=== PATIENT | male | born 1940 | race Caucasian/White ===

== ENCOUNTER 2020-06-02 11:09 | Emergency (ER) | payer OTHER, MEDICARE, SELFPAY ==
[2020-06-02 11:21] VITALS: BP 131/75; PULSE 78; RESP 16; TEMP 37; O2SAT 90; BMI 18.8
--- NOTE | 2020-06-02 11:30 | XR_ITS ---
WS: [id number] EXAM: AP CHEST: PORTABLE UPRIGHT DATE OF EXAM: 06/02/2020, 1135 hours COMPARISON: Chest x-ray from 02/17/2019 HISTORY: Patient is 79 years old with cough and dyspnea for the last 4 days. FINDINGS: The cardiac silhouette is normal in size. The mediastinal contours are similar.. The pulmonary v ascularity is normal. Fairly extensive underlying emphysematous lung changes seen. Loss of lung pare nchyma markings are again seen superiorly, right greater than left. Increased interstitial markings m id and lower lung zones again seen suggesting some degree of vascular crowding as well as most likely some degree of fibrosis. Right lung is clear. There is persistent infiltrate in the left mid and med ial lower chest. Actually less apparent than on the 2019 examination. Going back to a 2017 CT examina tion minimal atelectasis in the left lung base was seen at that time. This raises the possibility of a recurrent pneumonitis in the left lung versus all progressive chronic change. There is no effusion or pneumothorax. No acute bony abnormality is seen. XR/XR chest 1V portable [id number] IMPRESSION: COPD changes with hyperinflation. Infiltrate in the left mid and lower chest. Q uestion chronic change versus recurrent pneumonitis.
--- NOTE | 2020-06-02 11:31 | ECG_ITS ---
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 Measurements Intervals [place] Rate: 74 P: 1 VA: 157 QRS: -58 QRSD: 93 T: 73 QT: 436 QTc: 486 Interpretive Statements SINUS RHYTHM LEFT ANTERIOR FASCICULAR BLOCK [QRS AXIS <= -45, QR IN I, RS IN II] NONSPECIFIC T-WAVE ABNORMALITY PROLONGED QT INTERVAL Compared to ECG 03/06/2017 13:18:32 Left anterior fascicular block now present T-wave abnormality now present Prolonged QT interval now present Left-axis deviation no longer present Electronically Signed On 06-02-2020 19:40:55 CDT by Raghu Vazquez M.D. [id number]
--- NOTE | 2020-06-02 11:40 | W.ED.AMS ---
HPI - Altered Mental Status General: Chief Complaint: Altered Mental Status Stated Complaint: low o2/dizzy/recent fever/horney stings/ams Time Seen by Provider: 06/02/20 11:20 History of Present Illness: HPI narrative: This patient is an 79-year-old male who comes in today with complaints that he might have pneumonia as well as reported confusion at home. He is the only 1 in the room at the time I take the history but he tells me that his daughters think he has pneumonia. He said he had a cough for about a week. He feels short of breath. He does not think he is had a fever. He has not had chest pain, nausea, vomiting, diarrhea. He got confused last night and thought it was 7:30 in the morning when it was actually 7:30 at night. He does have some oxygen at home which he was prescribed about a year ago after he had some rib fractures. He does not normally use it and has not used it in this past week. He also has an inhaler at home that he uses sometimes when it is hot . He has not used that this week either. He said he has not gone out much and does not think he is been around anyone who is been sick. [facility] He said he was in the ICU once about 4 years ago in [place] for pneumonia. I spoke with the patient's daughter. She said it was this morning that she had talked to him on the phone and he thought it was nighttime. He was very confused with her. She and her daughter who is an ER nurse, and live on the same property as him, went to his house to check on him. They checked his pulse ox and it was in the 70s. They put him on some oxygen that is at the home because of a grandchild who uses it. That did seem to help him somewhat. She says that he does have a history of COPD and recurrent pneumonias. She said he has had a severe cough for the past week. She did not have any other concerns or history to add to that. complaint: confusion and other (Cough and shortness of breath) Onset (ago): week(s) (1) Severity: moderate Consistency of symptoms: Unknown Review of Systems General: Reports: 10 or more systems reviewed and unremarkable except in HPI and below Const: Denies: fever(s), chills, fatigue or malaise Eyes: Denies: change in vision ENMT: Denies: odynophagia Card: Denies: chest pain or swelling of feet/ankles Resp: Reports: dyspnea and productive cough; Denies: non-productive cough GI: Denies: abdominal pain, nausea or vomiting : Denies: flank pain Musc: Denies: neck pain or back pain Skin/Breast: Denies: rash Neuro: Reports: confusion; Denies: headache(s), numbness in extremities or weakness in extremities Reed/Lymph: Denies: easy bruising or easy bleeding PFSH ED PFSH: Social History (Updated 06/02/20 @ 11:31 by Jessica Emerson RN) Smoking and tobacco status: current every day smoker cigarettes Alcohol intake: current Alcohol intake frequency: 0-2 Drinks per Day Physical Exam Const: COMMON NORMALS: no acute distress, patient oriented x3, no limitations and alert GENERAL APPEARANCE: cooperative and comfortable ORIENTATION/CONSCIOUSNESS: Yes oriented to person, Yes oriented to place and Yes oriented to time (May be still a little bit confused) HENMT: HEAD & SCALP: normal to inspection FACE & SINUS: normal facial exam Eye: GENERAL EYE: appearance normal, both eyes and all related structures Neck/C-Spine: COMMON NORMALS: supple, no meningeal signs and no JVD Chest: COMMONS NORMALS: normal inspection of the chest Resp: EFFORT & INSPECTION: Yes symmetric chest movement AUSCULTATION: diminished lung sounds (Marked, diffuse) Cardio: COMMON NORMALS: no JVD, regular rate, regular rhythm and No murmurs present (Cardio) RATE: regular rate RHYTHM: regular rhythm GI: COMMON NORMALS: Normal to inspection, nondistended, normoactive bowel sounds present, Soft to palpation and non-tender INSPECTION: Yes normal to inspection AUSCULTATION: Yes normoactive bowel sounds PALPATION: Yes Soft to palpation Back/Pelvis: COMMON NORMALS: thoracic and lumbar spine normal to inspection Extremity: COMMON NORMALS: normal to inspection Neuro: COMMON NORMALS: patient oriented x3, moves all extremities, no focal motor deficits and no sensory deficits noted SENSORIUM/ORIENTATION: Yes alert, Yes oriented to person, Yes oriented to place and Yes oriented to time (May be still a little bit confused) MENINGEAL SIGNS: Yes no meningeal signs Psych: COMMON NORMALS: mental status grossly normal, cooperative and normal affect Skin: COMMON NORMALS: no rashes or lesions noted and turgor normal GENERAL SKIN EXAM: no rashes or lesions noted and turgor normal Course ED course: Patient's room air sat remains 90 to 89%. His chest x-ray suggests left-sided pneumonia. He continues to have decreased lung sounds. I spoke to his daughter and told her that I would like him to be admitted. She warned me that he might not want to stay. When I spoke to him he did in fact refused to stay in the hospital. He assures me that he has oxygen right by his bed at home. He said that he has a nebulizer. He will get an antibiotic filled. He expressed understanding of my concern that he could worsen at home we specifically discussed that if he were to get hypoxic and confused again he would know that he needed to put his oxygen on. He assures me that his family will keep a close eye on him and I do believe they will after having spoken to his daughter. I still prefer that he would come into the hospital. He is getting Rocephin and Zithromax and a breathing treatment at this time. He plans to sign out AMA after that. Reevaluation(s): Reevaluation #1: Spoke with the patient's daughter again. She understands that he is going to be signing out AMA. She will get his prescription filled and keep a close eye on him at home. She agrees to bring him back if he is getting worse. Vital Signs: Vital signs: Vital Signs Temperature 98.6 F 06/02/20 11:21 Pulse Rate 87 06/02/20 13:51 Respiratory Rate 20 H 06/02/20 13:51 Blood Pressure 112/71 06/02/20 15:07 Pulse Oximetry 90 06/02/20 15:07 MDM - Altered Mental Status Lab Data: Labs: Lab Results 06/02/20 06/02/20 06/02/20 Range/Units 11:55 11:55 11:55 WBC 10.4 H (4.0-10.0) 10^3/ uL RBC 5.26 (4.1-5.3) 10^6/u L Hgb 18.4 H (11.7-16.6) g/dL Hct 55.1 H (42.0-52.0) % MCV 104.8 H (80-94) fL MCH 35.0 H (28.0-34.0) pg MCHC 33.4 (30.0-36.0) g/dL RDW 15.1 (12.1-15.1) % Plt Count 162 (130-400) 10^3/c mm MPV 10.0 (7.4-10.4) fL Neut % (Auto) 85.0 % Lymph % (Auto) 8.1 % Stafford % (Auto) 5.8 % Eos % (Auto) 0.2 % Baso % (Auto) 0.3 % Neut # (Auto) 8.87 H (1.8-7.7) 10^3/u L Lymph # (Auto) 0.9 (0.8-4.8) 10^3/u L Stafford # (Auto) 0.6 (0.2-0.9) 10^3/u L Eos # (Auto) 0.0 (0.0-0.8) 10^3/u L Baso # (Auto) 0.0 (0.0-0.1) 10^3/u L Nucleated RBC % (a uto) 0 % Nucleated RBCs # 0.0 /100WBC PT 12.60 (12.1-14.9) SECO NDS INR 0.92 (0.8-1.2) Fibrinogen 438 (174-498) mg/dL D-Dimer 0.44 (0-0.59) ug/mIFE U Sodium 137 (136-145) mmol/L Potassium 4.6 (3.5-5.1) mmol/L Chloride 99 (98-107) mmol/L Carbon Dioxide 25 (22-29) mmol/L Anion Gap 17.6 (5-19) BUN 10 (8-23) mg/dL Creatinine 0.8 (0.7-1.2) mg/dL GFR Calculation Not Reportable Glucose 104 (65-115) mg/dL Calculated Osmolal ity 283 L (285-295) mOsm/k g Lactic Acid (0.5-2.2) mmol/L Calcium 8.9 (8.5-10.5) mg/dL Ferritin 236 (30-400) ng/mL Total Bilirubin 0.7 (0.15-1.2) mg/dL AST 22 (0-40) U/L ALT 18 (0-41) U/L Alkaline Phosphata se 106 (40-130) IU/L Troponin T Baselin e (0-15) ng/L Troponin T 120 Min [place] (0-15) ng/L Delta Troponin T (0-10) ABS# C-Reactive Protein 41.1 H (0.0-4.9) mg/L NT-Pro-B Natriuret Pep 184 (0-450) pg/mL Total Protein 6.9 (6.6-8.7) g/dL Albumin 4.6 (3.5-5.2) g/dL Globulin 2.3 (1.3-4.6) g/dL Procalcitonin 0.10 (0-0.5) ng/mL Influenza Type A A g (Negative) Influenza Type B A g (Negative) SARS-CoV-2 Ag (Rap id) (Negative) 06/02/20 06/02/20 06/02/20 Range/Units 11:55 11:55 12:06 WBC (4.0-10.0) 10^3/ uL RBC (4.1-5.3) 10^6/u L Hgb (11.7-16.6) g/dL Hct (42.0-52.0) % MCV (80-94) fL MCH (28.0-34.0) pg MCHC (30.0-36.0) g/dL RDW (12.1-15.1) % Plt Count (130-400) 10^3/c mm MPV (7.4-10.4) fL Neut % (Auto) % Lymph % (Auto) % Stafford % (Auto) % Eos % (Auto) % Baso % (Auto) % Neut # (Auto) (1.8-7.7) 10^3/u L Lymph # (Auto) (0.8-4.8) 10^3/u L Stafford # (Auto) (0.2-0.9) 10^3/u L Eos # (Auto) (0.0-0.8) 10^3/u L Baso # (Auto) (0.0-0.1) 10^3/u L Nucleated RBC % (a uto) % Nucleated RBCs # /100WBC PT (12.1-14.9) SECO NDS INR (0.8-1.2) Fibrinogen (174-498) mg/dL D-Dimer (0-0.59) ug/mIFE U Sodium (136-145) mmol/L Potassium (3.5-5.1) mmol/L Chloride (98-107) mmol/L Carbon Dioxide (22-29) mmol/L Anion Gap (5-19) BUN (8-23) mg/dL Creatinine (0.7-1.2) mg/dL GFR Calculation Glucose (65-115) mg/dL Calculated Osmolal ity (285-295) mOsm/k g Lactic Acid 1.2 (0.5-2.2) mmol/L Calcium (8.5-10.5) mg/dL Ferritin (30-400) ng/mL Total Bilirubin (0.15-1.2) mg/dL AST (0-40) U/L ALT (0-41) U/L Alkaline Phosphata se (40-130) IU/L Troponin T Baselin e 13 (0-15) ng/L Troponin T 120 Min [place] (0-15) ng/L Delta Troponin T (0-10) ABS# C-Reactive Protein (0.0-4.9) mg/L NT-Pro-B Natriuret Pep (0-450) pg/mL Total Protein (6.6-8.7) g/dL Albumin (3.5-5.2) g/dL Globulin (1.3-4.6) g/dL Procalcitonin (0-0.5) ng/mL Influenza Type A A g (Negative) Influenza Type B A g (Negative) SARS-CoV-2 Ag (Rap id) Negative (Negative) 06/02/20 06/02/20 Range/Units 12:06 13:50 WBC (4.0-10.0) 10^3/ uL RBC (4.1-5.3) 10^6/u L Hgb (11.7-16.6) g/dL Hct (42.0-52.0) % MCV (80-94) fL MCH (28.0-34.0) pg MCHC (30.0-36.0) g/dL RDW (12.1-15.1) % Plt Count (130-400) 10^3/c mm MPV (7.4-10.4) fL Neut % (Auto) % Lymph % (Auto) % Stafford % (Auto) % Eos % (Auto) % Baso % (Auto) % Neut # (Auto) (1.8-7.7) 10^3/u L Lymph # (Auto) (0.8-4.8) 10^3/u L Stafford # (Auto) (0.2-0.9) 10^3/u L Eos # (Auto) (0.0-0.8) 10^3/u L Baso # (Auto) (0.0-0.1) 10^3/u L Nucleated RBC % (a uto) % Nucleated RBCs # /100WBC PT (12.1-14.9) SECO NDS INR (0.8-1.2) Fibrinogen (174-498) mg/dL D-Dimer (0-0.59) ug/mIFE U Sodium (136-145) mmol/L Potassium (3.5-5.1) mmol/L Chloride (98-107) mmol/L Carbon Dioxide (22-29) mmol/L Anion Gap (5-19) BUN (8-23) mg/dL Creatinine (0.7-1.2) mg/dL GFR Calculation Glucose (65-115) mg/dL Calculated Osmolal ity (285-295) mOsm/k g Lactic Acid (0.5-2.2) mmol/L Calcium (8.5-10.5) mg/dL Ferritin (30-400) ng/mL Total Bilirubin (0.15-1.2) mg/dL AST (0-40) U/L ALT (0-41) U/L Alkaline Phosphata se (40-130) IU/L Troponin T Baselin e (0-15) ng/L Troponin T 120 Min [place] 11.30 (0-15) ng/L Delta Troponin T -1.70 L (0-10) ABS# C-Reactive Protein (0.0-4.9) mg/L NT-Pro-B Natriuret Pep (0-450) pg/mL Total Protein (6.6-8.7) g/dL Albumin (3.5-5.2) g/dL Globulin (1.3-4.6) g/dL Procalcitonin (0-0.5) ng/mL Influenza Type A A g Negative (Negative) Influenza Type B A g Negative (Negative) SARS-CoV-2 Ag (Rap id) (Negative) Discharge Plan Discharge Patient Disposition: Left Against Medical Advice Clinical Impression: COPD exacerbation, Hypoxia Pneumonia Qualifiers: Pneumonia type: due to unspecified organism Laterality: unspecified laterality Lung location: unspecified part of lung Qualified Code(s): J18.9 - Pneumonia, unspecified organism Condition: Stable Prescriptions: New Augmentin 875-125 mg tablet 1 tab PO BID Qty: 20 RF: 0 prednisone 20 mg tablet 40 mg PO DAILY Qty: 8 RF: 0 Discharge Orders: Discharge Order (Routine); Ordered 06/02/20 Ordered By: Pamella Bundy Referrals: [facility] [Family Provider] - Discharge Diet: Usual diet Discharge Activity: Resume usual activity Patient Instructions: Chronic Obstructive Pulmonary Disease (ED), Hypoxia (ED), Pneumonia (ED) Activity Restrictions/Additional Instructions: Return to the emergency department if you decide that you wish to have further treatment in the hospital. Use your oxygen at home until you follow-up with the doctor and they tell you it is okay to stop the oxygen. Continue your nebulizer treatments at home. Take the antibiotics as prescribed. Discharge Date/Time: 06/02/20 15:25 Coding Level of Care Code ED Rn Oncology Research for Kim Fwshanon Exam Comprehensive
[2020-06-02 12:10] LABS: Basophils % 0.3 %; Eosinophils % 0.2 %; Hematocrit 55.1 % (42.0-52.0); Hemoglobin 18.4 g/dL (11.7-16.6); Lymphocytes # 0.9 10^3/uL (0.8-4.8); Lymphocytes % 8.1 %; Mean Corpuscular HGB Conc 33.4 g/dL (30.0-36.0); Mean Corpuscular Volume 104.8 fL (80-94); Monocytes # 0.6 10^3/uL (0.2-0.9); Monocytes % 5.8 %; Neutrophils # 8.87 10^3/uL (1.8-7.7); Nucleated Red Blood Cells % 0 %; Platelet Count 162 10^3/cmm (130-400); Red Blood Count 5.26 10^6/uL (4.1-5.3); Red Cell Distribution Width 15.1 % (12.1-15.1); White Blood Count 10.4 10^3/uL (4.0-10.0)
[2020-06-02 12:26] LABS: INR 0.92 (0.8-1.2)
[2020-06-02 12:27] LABS: Fibrinogen 438 mg/dL (174-498)
[2020-06-02 12:29] LABS: D Dimer 0.44 ug/mIFEU (0-0.59)
[2020-06-02 12:32] LABS: Lactic Sepsis W/Reflex 1.2 mmol/L (0.5-2.2)
[2020-06-02 12:37] LABS: Troponin(5th) Baseline 13 ng/L (0-15)
[2020-06-02 12:38] LABS: Influenza A by IFA Negative (Negative); Influenza B by IFA Negative (Negative); SARS Covid-2 Antigen Negative (Negative)
[2020-06-02 13:02] LABS: NT Pro B Type Natriuretic Pept 184 pg/mL (0-450)
[2020-06-02 13:13] LABS: Alanine Aminotransferase 18 U/L (0-41); Albumin Level 4.6 g/dL (3.5-5.2); Alkaline Phosphatase 106 IU/L (40-130); Anion Gap 17.6 (5-19); Aspartate Amino Transferase 22 U/L (0-40); Blood Urea Nitrogen 10 mg/dL (8-23); C Reactive Protein 41.1 mg/L (0.0-4.9); Calcium 8.9 mg/dL (8.5-10.5); Carbon Dioxide 25 mmol/L (22-29); Chloride 99 mmol/L (98-107); Ferritin 236 ng/mL (30-400); Globulin 2.3 g/dL (1.3-4.6); Glucose 104 mg/dL (65-115); Osmolality Calculated 283 mOsm/kg (285-295); Potassium 4.6 mmol/L (3.5-5.1); Sodium 137 mmol/L (136-145); Total Bilirubin 0.7 mg/dL (0.15-1.2); Total Protein 6.9 g/dL (6.6-8.7)
[2020-06-02 13:14] VITALS: BP 120/74; O2SAT 91
[2020-06-02] MEDS: cefTRIAXone 1,000 MG in sodium chloride 0.9% (plus) 50 ML 100 MG IV (13:43)
[2020-06-02] MEDS: ipratropium-albuterol 3 mL Neb INHALATION (13:44)
[2020-06-02 13:45] VITALS: PULSE 85; RESP 20; O2SAT 90
[2020-06-02 13:51] VITALS: PULSE 87; RESP 20; O2SAT 90
[2020-06-02] MEDS: azithromycin 500 MG in sodium chloride 0.9% 250 ML 250 MG IV (14:18)
[2020-06-02 15:07] VITALS: BP 112/71; O2SAT 90
== END 2020-06-02 15:25 | disposition left against medical advice (07) ==
PROVIDERS: Emergency Provider Emergency Medicine
DX: J44.0 Chronic obstructive pulmonary disease with (acute) lower respiratory infection (principal); J18.9 Pneumonia, unspecified organism; J44.1 Chronic obstructive pulmonary disease with (acute) exacerbation; R09.02 Hypoxemia; F17.210 Nicotine dependence, cigarettes, uncomplicated
CPT/HCPCS: 12345; 36415; 71045; 80053; 82728; 83605; 83880; 84145; 84484; 85025; 85378; 85384; 85610; 86140; 87040; 87070; 87077; 87205; 87426; 87804; 93005; 94640; 96365; 96367; 96375; 99283; 99284; J0456; J0696; J2930; J7050

== ENCOUNTER 2020-08-23 17:31 | Inpatient (IN) | payer OTHER, MEDICARE, SELFPAY ==
[2020-08-23] VITALS (12 sets, daily range): BP systolic 102–121; BP diastolic 63–80; PULSE 89–102; RESP 20–37; TEMP 36.4; O2SAT 86–95; BMI 18.8
--- NOTE | 2020-08-23 17:52 | XR_ITS ---
WS: [id number] XR chest 1V portable [id number] REASON FOR EXAM: dyspnea FINDINGS: Compared to the previous examination of 06/02/2020, the infiltrative changes in the left lower lung sh ow no improvement and may in fact be somewhat progressive. Infiltrative changes in the right lower rey ng appear partially resolved. No other significant interval change or new finding. XR/XR chest 1V portable [id number] IMPRESSION: Left lung infiltrate may be progressive. Improvement in the right lung infiltra te.
[2020-08-23 18:21] LABS: Basophils % 0.1 %; Hematocrit 51.3 % (42.0-52.0); Hemoglobin 17.9 g/dL (11.7-16.6); Lymphocytes # 0.5 10^3/uL (0.8-4.8); Lymphocytes % 4.8 %; Mean Corpuscular HGB Conc 34.9 g/dL (30.0-36.0); Mean Corpuscular Hemoglobin 34.7 pg (28.0-34.0); Mean Corpuscular Volume 99.4 fL (80-94); Mean Platelet Volume 10.8 fL (7.4-10.4); Monocytes # 0.2 10^3/uL (0.2-0.9); Monocytes % 1.6 %; Neutrophils # 8.91 10^3/uL (1.8-7.7); Neutrophils % 87.9 %; Nucleated Red Blood Cells % 0 %; Platelet Count 172 10^3/cmm (130-400); Red Blood Count 5.16 10^6/uL (4.1-5.3); Red Cell Distribution Width 14.6 % (12.1-15.1); White Blood Count 10.1 10^3/uL (4.0-10.0)
[2020-08-23 18:23] LABS: ABG PH Result 7.47 (7.35-7.45); Arterial Blood Gas Hematocrit 54.4 % (42-52); Base Excess ABG -1.1 mmol/L (-2.0-2.0); Blood Gas Allen Test Pos; Blood Gas Sample Type Arterial; PO2 ABG 56.3 mmHg (80.0-100.0)
[2020-08-23 18:24] LABS: Blood Gas Operator Identificat ED; Blood Gas Sample Site Radial, right; Oxygen Device NRB
--- NOTE | 2020-08-23 18:24 | W.ED.COVID ---
HPI - COVID General: Chief Complaint: COVID symptoms Stated Complaint: COUGH, SOB, BODY ACHES Time Seen by Provider: 08/23/20 17:49 Source: patient and family Limitations: no limitations Triage information: Has fever, cough or shortness of breath. No known COVID + exposure last 14 days History of Present Illness: HPI Narrative: Mr. Arriaga is a nice 80-year-old male who comes in complaining of shortness of breath, productive cough, nausea vomiting and diarrhea. Symptoms started yesterday. They have continued until today. Patiently has COPD and normally wears 1 to 2 L of nasal cannula oxygen as needed but he has necessitated a greater amount oxygen recently. He denies any chest pain. Patient states his cough is productive of green-colored sputum. He denies any chest tightness. Patient family was concerned about his oxygen saturation that was it was 83% at home so they decided to bring him here to the hospital to get checked out. COVID 19 common symptoms: positive productive cough, dyspnea, nausea, vomiting and diarrhea; negative fever(s), chills, non-productive cough, fatigue, body aches, headache(s) or throat pain COVID 19 other sytmptoms: negative chest pain or confusion COVID Results: SARS-CoV-2 Antigen (Rapid) Negative (Negative) 08/23/20 18:17 08/23/20 Review of Systems Const: Denies: fever(s), chills, body aches, fatigue, malaise or diaphoresis Eyes: Denies: change in vision, blurry vision, photophobia, eye discomfort, eye discharge, eye redness or yellow eyes ENMT: Denies: throat pain, odynophagia, hoarseness, swelling of lips/tongue, ear or mastoid pain, ear discharge, change in hearing or nasal discharge Card: Denies: chest pain, palpitations, irregular heart rhythm, edema, lightheadedness, syncope, pre-syncope, dyspnea on exertion or orthopnea Resp: Reports: dyspnea, productive cough and wheezing; Denies: non-productive cough, hemoptysis or chest congestion GI: Reports: nausea, vomiting and diarrhea; Denies: abdominal pain, hematemesis, coffee ground emesis, heartburn, constipation, GI cramping, hematochezia or melena : Denies: flank pain, dysuria, urinary frequency, urinary urgency or hematuria Musc: Denies: neck pain, back pain, extremity pain, extremity swelling, joint pain, joint swelling, joint redness, joint warmth or joint stiffness Skin/Breast: Denies: rash, pruritus, erythema, skin pain or skin tenderness Neuro: Denies: headache(s), numbness in extremities, weakness in extremities, sensory changes, lack of coordination, difficulty walking, dizziness, vertigo, confusion, Slurred speech present or seizure-like activity Reed/Lymph: Denies: easy bruising, easy bleeding, petechiae, purpura or enlarged lymph nodes All/Imm: Denies: urticaria, throat swelling, tongue swelling, facial swelling or acute wheezing PFSH ED PFSH: Medical History (Updated 08/23/20 @ 22:25 by Anni Balbuena) COPD (chronic obstructive pulmonary disease) Lipoma, spermatic cord Surgical History (Updated 08/23/20 @ 22:12 by Amy Feliciano MD) H/O inguinal hernia repair Social History (Updated 06/02/20 @ 11:31 by Jessica Emerson RN) Smoking and tobacco status: current every day smoker cigarettes Alcohol intake: current Alcohol intake frequency: 0-2 Drinks per Day Physical Exam Const: COMMON NORMALS: no acute distress, patient oriented x3, no limitations and alert GENERAL APPEARANCE: cooperative HENMT: COMMON NORMALS: normocephalic, atraumatic, external ears normal, EAC's normal and Normal external nose present HEAD & SCALP: normal to inspection, normocephalic and atraumatic FACE & SINUS: normal facial exam and face symmetric NOSE: Normal external nose present and Normal nares present EXTERNAL EAR: Yes external ears normal EXTERNAL AUDITORY CANAL: EAC's normal MOUTH: Normal oral and palatal mucosa present, lip normal and tongue normal Eye: COMMON NORMALS: Equal, round and reactive pupils present and conjunctivae normal GENERAL EYE: appearance normal, both eyes and all related structures ALIGNMENT: Yes alignment normal PERIORBITAL: periorbital findings normal EYELID: eyelids normal CONJUNCTIVA: Yes conjunctivae normal SCLERA: sclerae normal PUPIL: Yes Equal, round and reactive pupils present Neck/C-Spine: COMMON NORMALS: full ROM, no lymphadenopathy, supple, no meningeal signs and no JVD GENERAL: Yes normal visual inspection and Yes trachea midline Chest: COMMONS NORMALS: normal inspection of the chest and normal palpation of entire chest wall Resp: COMMON NORMALS: normal respiratory effort, No retractions, No use of accessory muscles and clear to auscultation bilaterally EFFORT & INSPECTION: Yes able to speak in complete sentences and Yes symmetric chest movement AUSCULTATION: clear to auscultation bilaterally, no crackles, no rales, rhonchi, wheezes and diminished lung sounds Cardio: COMMON NORMALS: no JVD, regular rate, regular rhythm, S1 normal heart sound present and S2 normal heart sound present RATE: regular rate RHYTHM: regular rhythm HEART SOUNDS: S1 normal heart sound present, S2 normal heart sound present, no click, no gallops, no murmurs and no rubs GI: COMMON NORMALS: Soft to palpation and No hepatosplenomegaly present PALPATION: Yes Soft to palpation, No Tenderness to palpation present (GI), No Guarding due to palpation present (GI), No Rigid due to palpation, Yes No hepatosplenomegaly present, No Hernia present, No Palpable mass present and No Pulsatile mass present : COMMON NORMALS: Yes no CVA tenderness BLADDER/KIDNEY EXAM: Yes no CVA tenderness Back/Pelvis: COMMON NORMALS: no CVA tenderness, thoracic and lumbar spine normal to inspection, no thoracic nor lumbar tenderness and thoraco-lumbar ROM normal Extremity: COMMON NORMALS: normal to inspection, full ROM, capillary refill normal, no joint enlargement, no clubbing, cyanosis or edema and no calf tenderness Neuro: COMMON NORMALS: patient oriented x3, CN's II-XII intact bilaterally, moves all extremities, no focal motor deficits and no sensory deficits noted SENSORIUM/ORIENTATION: Yes alert MENINGEAL SIGNS: Yes no meningeal signs SPEECH: speech normal Psych: COMMON NORMALS: mental status grossly normal, Normal thought process present, cooperative, normal affect, speech normal and activity/motor behavior normal SPEECH: Yes normal speech THOUGHT PROCESS: Normal thought process present Skin: COMMON NORMALS: no rashes or lesions noted, turgor normal, no jaundice, no petechiae and no mottling GENERAL SKIN EXAM: no rashes or lesions noted and turgor normal Course Vital Signs: Vital signs: Vital Signs Temperature 97.6 F 08/23/20 17:41 Pulse Rate 102 H 08/23/20 17:41 Respiratory Rate 20 H 08/23/20 17:41 Blood Pressure 102/63 08/23/20 17:41 Pulse Oximetry 86 L 08/23/20 17:41 MDM - COVID MDM Narrative: Medical decision making narrative: Mr. Arriaga is a nice 80-year-old male who comes in with 2-day history of coughing up yellow sputum, nausea and vomiting and diarrhea. He is requiring a significant amount of oxygen from his baseline. His symptoms do seem like Covid pneumonitis but his rapid Covid test is negative. He has relatively immune suppressed being on prednisone daily. I have discussed the case in full with Dr. Feliciano he is agreeable to admit the patient for further care. Medical Records: Attestation: I reviewed the patient's medical records. Lab Data: Attestation: I reviewed the patient's lab results. Labs: Lab Results 08/23/20 08/23/20 08/23/20 Range/Units 18:06 18:06 18:06 WBC 10.1 H (4.0-10.0) 10^3/ uL RBC 5.16 (4.1-5.3) 10^6/u L Hgb 17.9 H (11.7-16.6) g/dL Hct 51.3 (42.0-52.0) % MCV 99.4 H (80-94) fL MCH 34.7 H (28.0-34.0) pg MCHC 34.9 (30.0-36.0) g/dL RDW 14.6 (12.1-15.1) % Plt Count 172 (130-400) 10^3/c mm MPV 10.8 H (7.4-10.4) fL Neut % (Auto) 87.9 % Lymph % (Auto) 4.8 % Tripp % (Auto) 1.6 % Eos % (Auto) 0.0 % Baso % (Auto) 0.1 % Neut # (Auto) 8.91 H (1.8-7.7) 10^3/u L Lymph # (Auto) 0.5 L (0.8-4.8) 10^3/u L Tripp # (Auto) 0.2 (0.2-0.9) 10^3/u L Eos # (Auto) 0.0 (0.0-0.8) 10^3/u L Baso # (Auto) 0.0 (0.0-0.1) 10^3/u L Nucleated RBC % (a uto) 0 % Nucleated RBCs # 0.0 /100WBC PT (12.1-14.9) SECO NDS INR (0.8-1.2) Fibrinogen 791 H (174-498) mg/dL D-Dimer 2.17 H (0-0.59) ug/mIFE U Specimen Type Sample Site ABG pH (7.35-7.45) ABG pCO2 (35-45) mmHg ABG pO2 (80.0-100.0) mmH g ABG HCO3 (22-26) mmol/L ABG Base Excess (-2.0-2.0) mmol/ L Abdoul Test Hematocrit (42-52) % O2 Delivery Device O2 Liters/Min % Educational Interpreter ID Sodium 136 (136-145) mmol/L Potassium 4.2 (3.5-5.1) mmol/L Chloride 97 L (98-107) mmol/L Carbon Dioxide 23 (22-29) mmol/L Anion Gap 20.2 H (5-19) BUN 36 H (8-23) mg/dL Creatinine 1.5 H (0.7-1.2) mg/dL GFR Calculation Not Reportable Glucose 108 (65-115) mg/dL Calculated Osmolal ity 291 (285-295) mOsm/k g Lactic Acid (0.5-2.2) mmol/L Lactic Acid (Sepsi s) (0.5-2.2) mmol/L Calcium 9.8 (8.5-10.5) mg/dL Total Bilirubin 1.1 (0.15-1.2) mg/dL AST 17 (0-40) U/L ALT 13 (0-41) U/L Alkaline Phosphata se 73 (40-130) IU/L Lactate Dehydrogen ase 161 (135-225) U/L Creatine Kinase 65 (39-308) U/L C-Reactive Protein 497.2 H (0.0-4.9) mg/L Total Protein 7.2 (6.6-8.7) g/dL Albumin 3.8 (3.5-5.2) g/dL Globulin 3.4 (1.3-4.6) g/dL Procalcitonin (0-0.5) ng/mL SARS-CoV-2 Ag (Rap id) (Negative) 08/23/20 08/23/20 08/23/20 Range/Units 18:06 18:06 18:06 WBC (4.0-10.0) 10^3/ uL RBC (4.1-5.3) 10^6/u L Hgb (11.7-16.6) g/dL Hct (42.0-52.0) % MCV (80-94) fL MCH (28.0-34.0) pg MCHC (30.0-36.0) g/dL RDW (12.1-15.1) % Plt Count (130-400) 10^3/c mm MPV (7.4-10.4) fL Neut % (Auto) % Lymph % (Auto) % Tripp % (Auto) % Eos % (Auto) % Baso % (Auto) % Neut # (Auto) (1.8-7.7) 10^3/u L Lymph # (Auto) (0.8-4.8) 10^3/u L Tripp # (Auto) (0.2-0.9) 10^3/u L Eos # (Auto) (0.0-0.8) 10^3/u L Baso # (Auto) (0.0-0.1) 10^3/u L Nucleated RBC % (a uto) % Nucleated RBCs # /100WBC PT 14.90 (12.1-14.9) SECO NDS INR 1.13 (0.8-1.2) Fibrinogen (174-498) mg/dL D-Dimer (0-0.59) ug/mIFE U Specimen Type Sample Site ABG pH (7.35-7.45) ABG pCO2 (35-45) mmHg ABG pO2 (80.0-100.0) mmH g ABG HCO3 (22-26) mmol/L ABG Base Excess (-2.0-2.0) mmol/ L Abdoul Test Hematocrit (42-52) % O2 Delivery Device O2 Liters/Min % Educational Interpreter ID Sodium (136-145) mmol/L Potassium (3.5-5.1) mmol/L Chloride (98-107) mmol/L Carbon Dioxide (22-29) mmol/L Anion Gap (5-19) BUN (8-23) mg/dL Creatinine (0.7-1.2) mg/dL GFR Calculation Glucose (65-115) mg/dL Calculated Osmolal ity (285-295) mOsm/k g Lactic Acid 2.9 H (0.5-2.2) mmol/L Lactic Acid (Sepsi s) (0.5-2.2) mmol/L Calcium (8.5-10.5) mg/dL Total Bilirubin (0.15-1.2) mg/dL AST (0-40) U/L ALT (0-41) U/L Alkaline Phosphata se (40-130) IU/L Lactate Dehydrogen ase (135-225) U/L Creatine Kinase (39-308) U/L C-Reactive Protein (0.0-4.9) mg/L Total Protein (6.6-8.7) g/dL Albumin (3.5-5.2) g/dL Globulin (1.3-4.6) g/dL Procalcitonin 15.64 H (0-0.5) ng/mL SARS-CoV-2 Ag (Rap id) (Negative) 08/23/20 08/23/20 08/23/20 Range/Units 18:13 18:17 20:46 WBC (4.0-10.0) 10^3/ uL RBC (4.1-5.3) 10^6/u L Hgb (11.7-16.6) g/dL Hct (42.0-52.0) % MCV (80-94) fL MCH (28.0-34.0) pg MCHC (30.0-36.0) g/dL RDW (12.1-15.1) % Plt Count (130-400) 10^3/c mm MPV (7.4-10.4) fL Neut % (Auto) % Lymph % (Auto) % Tripp % (Auto) % Eos % (Auto) % Baso % (Auto) % Neut # (Auto) (1.8-7.7) 10^3/u L Lymph # (Auto) (0.8-4.8) 10^3/u L Tripp # (Auto) (0.2-0.9) 10^3/u L Eos # (Auto) (0.0-0.8) 10^3/u L Baso # (Auto) (0.0-0.1) 10^3/u L Nucleated RBC % (a uto) % Nucleated RBCs # /100WBC PT (12.1-14.9) SECO NDS INR (0.8-1.2) Fibrinogen (174-498) mg/dL D-Dimer (0-0.59) ug/mIFE U Specimen Type Arterial Sample Site Radial, right ABG pH 7.47 H (7.35-7.45) ABG pCO2 29.0 L (35-45) mmHg ABG pO2 56.3 L (80.0-100.0) mmH g ABG HCO3 21.0 L (22-26) mmol/L ABG Base Excess -1.1 (-2.0-2.0) mmol/ L Abdoul Test Pos Hematocrit 54.4 H (42-52) % O2 Delivery Device Nrb O2 Liters/Min 13.0 % Educational Interpreter ID Ed Sodium (136-145) mmol/L Potassium (3.5-5.1) mmol/L Chloride (98-107) mmol/L Carbon Dioxide (22-29) mmol/L Anion Gap (5-19) BUN (8-23) mg/dL Creatinine (0.7-1.2) mg/dL GFR Calculation Glucose (65-115) mg/dL Calculated Osmolal ity (285-295) mOsm/k g Lactic Acid (0.5-2.2) mmol/L Lactic Acid (Sepsi s) 2.3 H (0.5-2.2) mmol/L Calcium (8.5-10.5) mg/dL Total Bilirubin (0.15-1.2) mg/dL AST (0-40) U/L ALT (0-41) U/L Alkaline Phosphata se (40-130) IU/L Lactate Dehydrogen ase (135-225) U/L Creatine Kinase (39-308) U/L C-Reactive Protein (0.0-4.9) mg/L Total Protein (6.6-8.7) g/dL Albumin (3.5-5.2) g/dL Globulin (1.3-4.6) g/dL Procalcitonin (0-0.5) ng/mL SARS-CoV-2 Ag (Rap id) Negative (Negative) Imaging Data: CXR: Attestation: I personally reviewed and interpreted this imaging study as follows: My impression: Left lower lobe infiltrate. Findings consistent with COPD. CT Chest: Radiologist's impression: [facility] [place] [address] CT Scan Report Signed Patient: George Arriaga Unit #: [id number] : 1940 Age/Sex: 80 / M ADM Date: 08/23/20 Loc: ER Room/Bed: Attending Dr: Ordering Provider/Ordering MD: Anni Balbuena DO Date of Service: 08/23/20 Procedure(s): CT angio chest PE protcl [id number] Accession Number(s): [id number] Report Number: [id number] PROCEDURE INFORMATION: Exam: CT Angiography Chest With Contrast Exam date and time: 08/23/2020 7:30 PM Age: 80 years old Clinical indication: Abnormal findings; Abnormal diagnostic tests; Elevated d-dimer; Shortness of breath; Patient HX: Recent left rib FX; Additional info: Shortness of breath, positive d-dimer TECHNIQUE: Imaging protocol: Computed tomographic angiography of the chest with intravenous contrast. 3D rendering (Not supervised by radiologist): MIP and/or 3D reconstructed images were created by the technologist. Radiation optimization: All CT scans at this facility use at least one of these dose optimization techniques: automated exposure control; mA and/or kV adjustment per patient size (includes targeted exams where dose is matched to clinical indication); or iterative reconstruction. Contrast material: VISI 320; Contrast volume: 77 ml; Contrast route: INTRAVENOUS (IV); COMPARISON: CT chest w con* [id number] 03/06/2017 10:23 AM RADIATION DOSE METRICS: Total DLP (mGy-cm): 538.85 FINDINGS: Pulmonary arteries: There is no evidence of filling defects within the pulmonary arterial circulation to suggest pulmonary embolism. Aorta: There are atherosclerotic changes in the aortic arch without evidence for aneurysm or dissection. Lungs: There is severe emphysematous changes in both lungs. There is calcified granuloma in the right upper lobe. There is some dependent atelectasis posteriorly at the right lung base. There is consolidation with air bronchograms in the left lower lobe consistent with lobar pneumonia. Pleural space: Unremarkable. No pneumothorax. No pleural effusion. Heart: Unremarkable. No cardiomegaly. No pericardial effusion. Lymph nodes: There are calcified hilar and subcarinal lymph nodes in keeping with old granulomatous disease. Gallbladder and bile ducts: There is at least moderate dilatation of the gallbladder which measures over 4 cm. The gallbladder however is not completely imaged or evaluated on this examination. Bones/joints: There is healing fracture of the posterior left 9th rib which is new from the previous study Soft tissues: Unremarkable. CT/CT angio chest PE protcl [id number] IMPRESSION: 1. Severe pulmonary emphysema. 2. Left lower lobe pneumonia. 3. No evidence of pulmonary embolism. 4. Hydrops of the gallbladder Radiation Dose CTDIVOL = (mGy): DLP = 538.85 (mGy-cm) Dictated By: Vel Clemens Signed By: Vel Clemens Signed Date/Time: 08/23/202048 DD/ 47 EKG Data: EKG 1: Attestation: I personally reviewed and interpreted this EKG as follows: EKG interpretation date: 08/23/20 EKG interpretation time: 21:20 Interpretation: Normal sinus rhythm at 93 beats a minute, left axis deviation, no acute ST-T wave changes. COVID Results: SARS-CoV-2 Antigen (Rapid) Negative (Negative) 08/23/20 18:17 08/23/20 Discharge Plan Discharge Patient Disposition: Admitted As Inpatient Clinical Impression: Acute exacerbation of chronic obstructive pulmonary disease, Pneumonia Condition: Stable Prescriptions: No Action Celexa 10 mg Tablet 10 mg PO DAILY@0800 RF: 0 prednisone 5 mg Tablet 5 mg PO DAILY@0800 RF: 0 ibuprofen 200 mg Tablet 200 mg PO Q6H PRN (Reason: Pain) RF: 0 Ventolin HFA 90 mcg/actuation Hfa Aerosol Inhaler 2 puff INHALATION 6XD PRN (Reason: Shortness Of Breath) RF: 0 Ocuvite Adult 50 Plus 250-5-1 mg Capsule 1 cap PO DAILY@0800 RF: 0 Flovent HFA See Rx Instructions .ROUTE .COMPLEX RF: 0 Mucinex 400 mg PO DAILY PRN (Reason: Cold Symptoms) RF: 0 Referrals: Dee Alston FNP [Primary Care Provider] - Coding Level of Care Code ED Baby Nurse for Chg Fwd Exam Comprehensive
[2020-08-23 18:42] LABS: Fibrinogen 791 mg/dL (174-498)
[2020-08-23 18:45] LABS: D Dimer 2.17 ug/mIFEU (0-0.59)
[2020-08-23 18:47] LABS: Alanine Aminotransferase 13 U/L (0-41); Albumin Level 3.8 g/dL (3.5-5.2); Alkaline Phosphatase 73 IU/L (40-130); Anion Gap 20.2 (5-19); Aspartate Amino Transferase 17 U/L (0-40); Blood Urea Nitrogen 36 mg/dL (8-23); Calcium 9.8 mg/dL (8.5-10.5); Carbon Dioxide 23 mmol/L (22-29); Chloride 97 mmol/L (98-107); Creatine Phosphokinase 65 U/L (39-308); Globulin 3.4 g/dL (1.3-4.6); Glucose 108 mg/dL (65-115); Lactate Dehydrogenase 161 U/L (135-225); Osmolality Calculated 291 mOsm/kg (285-295); Potassium 4.2 mmol/L (3.5-5.1); Sodium 136 mmol/L (136-145); Total Bilirubin 1.1 mg/dL (0.15-1.2); Total Protein 7.2 g/dL (6.6-8.7)
[2020-08-23 18:48] LABS: Lactic Sepsis W/Reflex 2.9 mmol/L (0.5-2.2)
[2020-08-23 18:51] LABS: Slide Review Slide Review Perform
--- NOTE | 2020-08-23 18:51 | CTR_ITS ---
PROCEDURE INFORMATION: Exam: CT Angiography Chest With Contrast Exam date and time: 08/23/2020 7:30 PM Age: 80 years old Clinical indication: Abnormal findings; Abnormal diagnostic tests; Elevated d-dimer; Shortness of breath; Patient HX: Recent left rib FX; Additional info: Shortness of breath, positive d-dimer TECHNIQUE: Imaging protocol: Computed tomographic angiography of the chest with intravenous contrast. 3D rendering (Not supervised by radiologist): MIP and/or 3D reconstructed images were created by the technologist. Radiation optimization: All CT scans at this facility use at least one of these dose optimization techniques: automated exposure control; mA and/or kV adjustment per patient size (includes targeted exams where dose is matched to clinical indication); or iterative reconstruction. Contrast material: VISI 320; Contrast volume: 77 ml; Contrast route: INTRAVENOUS (IV); COMPARISON: CT chest w con* [id number] 03/06/2017 10:23 AM RADIATION DOSE METRICS: Total DLP (mGy-cm): 538.85 FINDINGS: Pulmonary arteries: There is no evidence of filling defects within the pulmonary arterial circulation to suggest pulmonary embolism. Aorta: There are atherosclerotic changes in the aortic arch without evidence for aneurysm or dissection. Lungs: There is severe emphysematous changes in both lungs. There is calcified granuloma in the right upper lobe. There is some dependent atelectasis posteriorly at the right lung base. There is consolidation with air bronchograms in the left lower lobe consistent with lobar pneumonia. Pleural space: Unremarkable. No pneumothorax. No pleural effusion. Heart: Unremarkable. No cardiomegaly. No pericardial effusion. Lymph nodes: There are calcified hilar and subcarinal lymph nodes in keeping with old granulomatous disease. Gallbladder and bile ducts: There is at least moderate dilatation of the gallbladder which measures over 4 cm. The gallbladder however is not completely imaged or evaluated on this examination. Bones/joints: There is healing fracture of the posterior left 9th rib which is new from the previous study Soft tissues: Unremarkable. CT/CT angio chest PE protcl [id number] IMPRESSION: 1. Severe pulmonary emphysema. 2. Left lower lobe pneumonia. 3. No evidence of pulmonary embolism. 4. Hydrops of the gallbladder Radiation Dose CTDIVOL = (mGy): DLP = 538.85 (mGy-cm)
[2020-08-23 18:58] LABS: SARS Covid-2 Antigen Negative (Negative)
[2020-08-23 19:04] LABS: C Reactive Protein 497.2 mg/L (0.0-4.9)
[2020-08-23] MEDS: piperacillin-tazobactam 3.375 GM in sodium chloride 0.9% (plus) 50 ML IV (19:36)
[2020-08-23 20:02] LABS: Reflex Lactate Order REFLEX LACTIC ORDERD
[2020-08-23 20:09] LABS: INR 1.13 (0.8-1.2)
[2020-08-23] MEDS: iodixanol 320 mg/mL 100mL Btl IV (20:18)
[2020-08-23 20:21] LABS: Procalcitonin 15.64 ng/mL (0-0.5)
--- NOTE | 2020-08-23 21:02 | ECG_ITS ---
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 Measurements Intervals [place] Rate: 93 P: 1 NM: 181 QRS: -61 QRSD: 77 T: 75 QT: 330 QTc: 411 Interpretive Statements SINUS RHYTHM LEFT ANTERIOR FASCICULAR BLOCK [QRS AXIS <= -45, QR IN I, RS IN II] NONSPECIFIC T-WAVE ABNORMALITY Compared to ECG 06/02/2020 12:03:12 Prolonged QT interval no longer present T-wave abnormality still present Electronically Signed On 08-24-2020 15:17:33 PIPE FITTER by Cyndy Chavez M.D. [id number]
[2020-08-23 21:38] LABS: Lactic Acid level (Lactate) 2.3 mmol/L (0.5-2.2)
[2020-08-23] MEDS: sodium chloride 0.9% 1,000 ML 999 ML IV (21:43)
--- NOTE | 2020-08-23 22:11 | PM.HP ---
Providers/Chief Complaint Primary Care Provider: MADELINE Kwon Chief Complaint: COUGH, SOB, BODY ACHES History of Present Illness George Arriaga is a 80 year old male who carries history of COPD, uses oxygen on as-needed basis, nocturnal hypoxemia, essential tremor presented today to the emergency department chief complaint of weakness and lethargy. Patient is stating that 2 days ago he attended a and same day around midnight he started experiencing diarrhea, next day he was not able to keep anything down, has had multiple episodes of emesis with diarrhea, he did not notice any fever, blood in stool, he started feeling extremely lethargic in association with productive cough (bringing up pinkish sputum), at baseline he sometimes uses 1 to 2 L O2 at night or when he gets extremely short of breath on exertion, he considers himself fairly active for his age, smokes 1 pack/day, recently his PCP started him on prednisone 5 mg for COPD exacerbation for last 1 month. No other sick contacts at home. Of note, he was seen in the ER in May with possible left-sided pneumonia when he left AGAINST MEDICAL ADVICE, today diagnosis in the ER revealed sepsis with leukocytosis, tachycardia, tachypnea, hypoxia on 13 L nonrebreather mask, ABG revealed relative hypoxia, CTA chest did not show PE, left lobar pneumonia noticed, patient was awake alert not in any active distress at the time my evaluation on 12 L nonrebreather mask saturating 89 to 90%, he has been given Zosyn and 1 L fluid normal saline and Decadron 10 mg. Patient has not undergone any screening surveillance such as low-dose CT scan, abdominal aortic screening, colonoscopy Review of Systems Const: Reports: chills, body aches, change in appetite and fatigue; Denies: fever(s) Eyes: Denies: change in vision ENMT: Denies: throat pain Card: Denies: chest pain Resp: Reports: dyspnea, productive cough and pain on inspiration GI: Reports: nausea, vomiting and diarrhea : Denies: flank pain Musc: Denies: neck pain Skin/Breast: Denies: lesions Neuro: Denies: headache(s) Psych: Denies: anxiety Endo: Denies: polyuria Reed/Lymph: Denies: easy bruising All/Imm: Denies: urticaria Medications/Allergies Home Medications Medication Instructions Recorded Confirmed Last Taken Type C,E,zinc,copper [id number] 1 cap PO DAILY@0800 08/23/20 08/23/20 08/23/20 History [Ocuvite Adult 50 Plus] Flovent HFA See Rx Instructions .ROUTE .COMPLEX 08/23/20 08/23/20 08/23/20 History Mucinex 400 mg PO DAILY PRN 08/23/20 08/23/20 Unknown History albuterol sulfate [Ventolin HFA] 2 puff INHALATION 6XD PRN 08/23/20 08/23/20 08/23/20 History citalopram [Celexa] 10 mg PO DAILY@0800 08/23/20 08/23/20 08/23/20 History ibuprofen 200 mg PO Q6H PRN 08/23/20 08/23/20 08/23/20 History prednisone 5 mg PO DAILY@0800 08/23/20 08/23/20 08/23/20 History Allergies Allergy/AdvReac Type Severity Reaction Status Date / Time No Known Allergies Allergy Verified 06/02/20 11:30 PFSH Acute PFSH: Medical History COPD (chronic obstructive pulmonary disease) Essential tremor Head trauma Lipoma, spermatic cord Malnourished Nicotine dependence Pneumothorax After accident, spontaneous pneumothorax, never required chest tube placement, left-sided Surgical History H/O inguinal hernia repair Family History Denies family history of Cancer Social History Smoking and tobacco status: current every day smoker cigarettes Number of cigarettes per day: 11-20 [ Other cigarette details: >55-[id number]-zskc smoking history ] Alcohol intake: current Alcohol intake frequency: 0-2 Drinks per Day Household members: family Housing: House Vitals/I&O/Wt Last Vital Signs Temp 97.6 F 08/23/20 17:41 Pulse 102 H 08/23/20 17:41 Resp 20 H 08/23/20 17:41 BP 102/63 08/23/20 17:41 Pulse Ox 86 L 08/23/20 17:41 Weight last 48 hrs Weight 61.235 kg Physical Exam Narrative: EXAM NARRATIVE: elderly male, appears more than stated age Looks dehydrated and malnourished Saturating 90% on 12 L nonrebreather mask No active respiratory distress When I entered the room he was not in semifowler position without any active distress Clinically looks dehydrated Emaciated/malnourished appearance S1, S2 distant heart sounds No active wheezing stridor or rhonchi however diminished breath sounds bilaterally No acute use of respiratory accessory muscles Abdomen soft nontender bowel sound present Awake alert oriented x3 GCS 15 Appropriate mood and affect Lower extremity no edema gangrene or ulcer EOMI, PERRLA Data : 08/23/20 18:06 08/23/20 18:06 A&P Assessment and plan (1) Acute exacerbation of chronic obstructive pulmonary disease: Status: Acute (2) Pneumonia: Status: Acute Qualifiers: Laterality: left Lung location: lower lobe of lung Pneumonia type: due to unspecified organism Qualified Code(s): J18.9 - Pneumonia, unspecified organism (3) Sepsis: Status: Acute (4) VIVIANA (acute kidney injury): Status: Acute (5) Dehydration: Status: Acute (6) Diarrhea: Status: Acute (7) Acute respiratory failure with hypoxia: Status: Acute Additional A&P Information Sepsis due to community-acquired pneumonia Sepsis criteria met with tachypnea, tachycardia, mild leukocytosis, high lactic acid noted Started him on ceftriaxone and azithromycin regimen, received Zosyn in the ER CTA chest rule out PE positive for left lobar pneumonia, of note, he had mild consolidation in left lower lobe as well in May considering malnourished appearance, pinkish sputum and recurrent pneumonia he might need bronchoscopy down the road to rule out bronchial obstruction He has been using prednisone 5 mg for last 30 days, I would escalate his steroid dose to Decadron 6 mg which will be equivalent to 40 mg of prednisone Covid antigen negative, requested PCR Currently on 12 L nonrebreather mask, would avoid BiPAP for now because of productive cough Ceftriaxone and azithromycin for now, check Legionella and bacterial antigen, low threshold to escalating antibiotics if he has worsening of leukocytosis or symptoms Requested Gram stain sputum culture and blood culture Acute hypoxic respiratory failure PE ruled out, requested Covid PCR Hypoxic respiratory most likely secondary to left lobar pneumonia Overnight pulse oximeter monitor Home O2 evaluation before discharge No signs of heart failure, Acute COPD exacerbation due to community-acquired pneumonia Management as mentioned above Would use Ventolin and Decadron Will check LDH to rule out PCP pneumonia because of chronic steroid use Dehydration secondary to nausea vomiting Check C. difficile panel, has not used any antibiotics recently, no fever, no blood in stool, he has been using Imodium at home Continue maintenance fluid normal saline at 100 cc/h Improvement in lactic acid after fluid resuscitation noted VIVIANA secondary to dehydration Anticipate improvement with fluid resuscitation, closely monitor urine output and creatinine level Hydrops gallbladder incidental finding, normal liver enzymes, afebrile, normal bilirubin level, will request liver/gallbladder ultrasound Full code Cardiac diet DVT prophylaxis heparin Attestations Medical Necessity Statement*: Spitting stay in the hospital cross more than 2 midnights currently need IV antibiotics for community-acquired pneumonia, sepsis and management of acute hypoxic respiratory failure, need to rule out Covid Time Spent in Patient Care: (>than 50% of time spent in counselling and/or direct pt care on unit). 50mins Coding Level of Care Code Acute Mixing Machine Tender [facility] Diagnoses Acute exacerbation of chronic obstructive pulmonary disease J44.1 Pneumonia J18.9 Laterality: left Lung location: lower lobe of lung Pneumonia type: due to unspecified organism Sepsis A41.9 VIVIANA (acute kidney injury) N17.9 Dehydration E86.0 Diarrhea R19.7 Acute respiratory failure with hypoxia J96.01
[2020-08-23 22:44] LABS: Troponin(5th) Baseline 15 ng/L (0-15)
[2020-08-23] MEDS: dexamethasone 4 mg/mL INJ 10 MG IVP (22:53)
[2020-08-23] MEDS: sodium chloride 0.9% 1,000 ML 100 ML IV (22:54)
[2020-08-24] VITALS (64 sets, daily range): BP systolic 85–153; BP diastolic 35–107; PULSE 82–105; RESP 14–34; TEMP 36.4–36.7; O2SAT 86–99
[2020-08-24 02:12] LABS: Lactate Dehydrogenase 151 U/L (135-225)
[2020-08-24 02:34] LABS: C Reactive Protein 411.4 mg/L (0.0-4.9)
[2020-08-24] MEDS: albuterol 8 gm MDI 2 PUFF INHALATION (02:52)
[2020-08-24] MEDS: heparin 5,000 unit/mL INJ 1 mL 5000 UNIT SUBCUT ×3 (02:52→16:50)
--- NOTE | 2020-08-24 03:02 | ECG_ITS ---
[facility] Test Date: 2020-08-24 Pat Name: George Arriaga Department: Room: 255 Gender: Male [employer] Worker: : 1940 Requested By: Anni Lou Order Number: [id number] Welch MD: Cyndy Chavez M.D. Measurements Intervals [place] Rate: 98 P: 22 LA: 175 QRS: -60 QRSD: 77 T: 68 QT: 331 QTc: 423 Interpretive Statements SINUS RHYTHM LEFT ANTERIOR FASCICULAR BLOCK [QRS AXIS <= -45, QR IN I, RS IN II] Compared to ECG 08/23/2020 21:20:50 T-wave abnormality no longer present Electronically Signed On 08-24-2020 17:14:54 PARACHUTE/COMBATANT DIVER OFFICER by Cyndy Chavez M.D. [id number]
--- NOTE | 2020-08-24 03:41 | PC.NURSE ---
Patient arrived to the floor from the ED after report was received via phone. Patient is alert and oriented and ambulatory with assistance. Patient complains of rib pain with movement. Patient states he has broken ribs. Patient has been oriented to his room and has call light within reach.
[2020-08-24 04:07] LABS: Hematocrit 43.1 % (42.0-52.0); Hemoglobin 14.9 g/dL (11.7-16.6); Mean Corpuscular HGB Conc 34.6 g/dL (30.0-36.0); Mean Corpuscular Volume 101.2 fL (80-94); Mean Platelet Volume 11.6 fL (7.4-10.4); Platelet Count 146 10^3/cmm (130-400); Red Blood Count 4.26 10^6/uL (4.1-5.3); Red Cell Distribution Width 14.8 % (12.1-15.1); White Blood Count 10.2 10^3/uL (4.0-10.0)
[2020-08-24 04:34] LABS: Alanine Aminotransferase 10 U/L (0-41); Albumin Level 3.1 g/dL (3.5-5.2); Alkaline Phosphatase 57 IU/L (40-130); Anion Gap 16.9 (5-19); Aspartate Amino Transferase 12 U/L (0-40); Blood Urea Nitrogen 35 mg/dL (8-23); Calcium 8.5 mg/dL (8.5-10.5); Carbon Dioxide 22 mmol/L (22-29); Chloride 102 mmol/L (98-107); Globulin 2.6 g/dL (1.3-4.6); Glucose 101 mg/dL (65-115); Osmolality Calculated 292 mOsm/kg (285-295); Potassium 3.9 mmol/L (3.5-5.1); Sodium 137 mmol/L (136-145); Total Bilirubin 0.8 mg/dL (0.15-1.2); Total Protein 5.7 g/dL (6.6-8.7)
[2020-08-24] MEDS: sodium chloride 0.9% 1,000 ML 100 ML IV (04:46)
[2020-08-24 05:56] LABS: Absolute Segmented Neutrophil 6.9 10/cmm (1.6-7.1); Band Neutrophils Absolute 2.9 10^3/cmm (0.0-1.2); Segmented Neutrophils 68 %; Slide Review Slide Review Perform; Total Cells Counted 100 (0-100)
[2020-08-24 05:57] LABS: Absolute Neutrophil 9.8 10^3/cmm (1.4-6.5); Eosinophils 0 %; Giant Platelets Trace; Lymphocytes 2 %; Macrocytosis 1+; Monocytes Absolute 0.2 10^3/cmm (0.1-0.6); Platelet Estimate Normal (Normal)
[2020-08-24 05:58] LABS: Anisocytosis Trace
--- NOTE | 2020-08-24 06:26 | PC.NURSE ---
Nurse noticed that patient went off of the monitoring specialist. Nurse when to check on patient. Patient was standing at side of bed with oxygen out of nose and telemetry wires pulled off. Nurse assisted patient to the bathroom. Patient was reeducated to use his call light to prevent falling and getting hurt. Patient verbalized understanding. Patient is currently A&O. Bed alarm set.
[2020-08-24 06:56] LABS: Glucose Point of Care 107 mg/dL (70-110)
--- NOTE | 2020-08-24 08:16 | PC.CHAP ---
Pastoral Care Encounter/Spiritual Assessment Type of Contact [] Declined twisting machine operator visit [] Patient/Family/Request visit [] Outpatient visit [] Follow-up visit [] Physician referral [] Code/Alert [] Routine visit [] Staff referral [] Actively dying [] Patient sleeping [] Family support [] [] Out of room [] Palliative care [] [] Receiving care in room [] Pre-surgical visit [] Trauma [] Long length of stay [] ICU visit [x] Other: isolated Relational/Emotional Strength [] Patient feels connected with others/family/visitors/staff [] Distress [] Loneliness/isolation [] Abandonment Spirituality of Patient [] Person of Darlyn [] Attends Scientologist of their Darlyn [] Believes in Prayer [] Reads Bible or Episcopal materials [] There are Spiritual issues to be addressed Office Auditor Interventions [x] Prayer [] Active listening [] Non-anxious presence [] Spiritual/emotional support [] Crisis/trauma care [] Spiritual counseling [] Bereavement support [] Provided bereavement packet [] Provided Bible/devotional materials [] Provided toy/stuffed animal, coloring book to patient or family member [] Provided Communion [] Anointing/[place] [] Salvation [x] Completed spiritual assessment [] Other: Impact on Illness or Injury [] Angry [] Fearful [] Anxious [] Often cries [] Exhaustion [] Unable to work [] Unable to attend mosque [] Unable to walk/stand [] Unable to read [] Unable to drive [] Unable to eat/drink [] Unable to sleep [] Unable to be with family [] Patient intubated [] Other: Summary Time spent with patient
[2020-08-24] MEDS: cefTRIAXone 1,000 MG in sodium chloride 0.9% (plus) 50 ML 100 MG IV (09:03)
[2020-08-24] MEDS: dexamethasone 4 mg Tablet 6 MG PO (09:04)
[2020-08-24] MEDS: azithromycin 250 mg Tablet 500 MG PO (09:04)
--- NOTE | 2020-08-24 09:45 | PC.RESP ---
SMOKING CESSATION AND PULMONARY REHAB INFORMATION SENT TO PATIENT.
--- NOTE | 2020-08-24 09:50 | USCV_ITS ---
George Arriaga Age: 80 Gender: M : 1940 Exam Date: 08/24/2020 12:07 Ordering Phys: Jose Martin Armijo MD Technologist: David Burton Exam Location: [facility] [place] Indication: pul hnt BP: 113 / 77 HR: 94 Rhythm: Sinus Technical Quality: Fair MEASUREMENTS (Male / Female) Normal Values 2D ECHO LV Diastolic Diameter PLAX 3.8 cm 4.2 - 5.9 / 3.9 - 5.3 cm LV Systolic Diameter PLAX 2.8 cm IVS Diastolic Thickness 1.2 cm 0.6 - 1.0 / 0.6 - 0.9 cm IVS Systolic Thickness 1.3 cm LVPW Diastolic Thickness 1.1 cm 0.6 - 1.0 / 0.6 - 0.9 cm LVPW Systolic Thickness 1.3 cm LVOT Diameter 2.1 cm LV Ejection Fraction 2D Teich 51.3 % LV Ejection Fraction MOD 2C 44.6 % LV Ejection Fraction 2C AL 43.9 % LA Diameter 3.7 cm LA Width 3.6 cm LA Height 4.6 cm RA Width 3.6 cm RA Height 4.1 cm Aorta at Sinotubular Diameter 3.4 cm M-MODE LV Diastolic Diameter MM 4.0 cm 4.2 - 5.9 / 3.9 - 5.3 cm LV Systolic Diameter MM 2.4 cm LV Ejection Fraction MM Teich 70.7 % IVS Diastolic Thickness MM 1.1 cm 0.6 - 1.0 / 0.6 - 0.9 cm IVS Systolic Thickness MM 1.7 cm LVPW Diastolic Thickness MM 0.8 cm 0.6 - 1.0 / 0.6 - 0.9 cm LVPW Systolic Thickness MM 1.6 cm RV Diastolic Diameter MM 1.9 cm Aortic Annulus Diameter 3.7 cm LA Ao Ratio MM 1.0 MV E Point Septal Separation 1.6 cm DOPPLER AV Peak Velocity 196.0 cm/s LVOT Peak Velocity 101.0 cm/s AV Area Cont Eq vti 1.4 cm squared AV Area Cont Eq pk 1.7 cm squared MV Area PHT 5.0 cm squared Mitral E to A Ratio 0.5 MV E' Velocity 31.5 cm/s Mitral E to MV E' Ratio 7.1 Mitral E to LV E' Lateral Ratio 5.6 Mitral E to LV E' Septal Ratio 9.9 TR Peak Velocity 173.0 cm/s TR Peak Gradient 12.0 mmHg TV Peak E Velocity 87.0 cm/s Right Atrial Pressure 3.0 mmHg Pulmonary Artery Systolic Pressu 15.0 mmHg FINDINGS Left Ventricle Normal left ventricular size and systolic function, EF 75 %. Mild left ventricular hypertrophy. No regional wall motion abnormalities. Grade I/IV diastolic dysfunction (abnormal relaxation filling pattern), normal to mildly elevated filling pressures. Right Ventricle The right ventricle is normal in size and function. Right Atrium The right atrium is normal in size. Left Atrium The left atrium is normal in size. Mitral Valve Structurally normal mitral valve without significant stenosis or prolapse. There is no mitral regurgitation. Aortic Valve Thickened aortic valve. Tricuspid Valve Trace of tricuspid valve regurgitation. Pulmonic Valve Structurally normal pulmonic valve without significant stenosis. There is no pulmonic regurgitation. Pericardium Normal pericardium without effusion. 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 Mild left ventricular hypertrophy. No regional wall motion abnormalities. Grade I/IV diastolic dysfunction (abnormal relaxation filling pattern), normal to mildly elevated filling pressures. Thickened aortic valve. Trace of tricuspid valve regurgitation. Normal pulmonary artery peak systolic pressure There is no pericardial effusion. There are no intracardiac masses. No previous study is available for comparison. Dr Raghu Vazquez MD [facility] (Electronically Signed) Final Date: 25 August 2020 09:23 S
[2020-08-24] MEDS: piperacillin-tazobactam 3.375 GM in sodium chloride 0.9% (plus) 50 ML IV ×2 (10:25→17:43)
[2020-08-24] MEDS: zinc gluconate 50 mg Tablet PO (10:26)
[2020-08-24 10:35] LABS: Procalcitonin 10.61 ng/mL (0-0.5)
--- NOTE | 2020-08-24 10:37 | P.PN_ITS ---
Subjective Subjective: Interval history: Admitted overnight to cardiac stepdown unit. Currently patient is on 90% FiO2 30 L saturating 92%. History taken via phone with granddaughter who is a ER nurse. She states usually Mr. Arriaga is on 2 L of oxygen only on exertion but for last 3 to 4 days he has been having diarrhea, feeling more tired fatigued, having myalgias and requiring more oxygen until yesterday when he was not able to catch his breath so was brought to the ER. No potential exposure to COVID-19 positive patients other than granddaughter who works in the ER as a nurse. Patient has had occasional fevers for last 1 week. Patient states he has been maintaining social distancing and usually wears a mask when he goes in public. On examination patient states he is feeling little better, states cough is minimal now without any expectoration. States his energy levels are good. He is comfortable on high flow saturating 92%. Denies any nausea, vomiting, headache, dizziness. Vitals/I&O/Wt Last Vital Signs Temp 97.6 F 08/24/20 08:00 Pulse 87 08/24/20 08:00 Resp 21 H 08/24/20 08:00 BP 113/77 08/24/20 08:00 Pulse Ox 95 08/24/20 08:00 08/23/20 08/24/20 08/24/20 22:59 06:59 14:59 Intake Total 1050 / 1050 240 / 240 Balance 1050 / 1050 240 / 240 Weight last 48 hrs Weight 61.235 kg Physical Exam Narrative: EXAM NARRATIVE: General: No acute distress, AO x3 HEENT: PERRLA, pupils bilaterally equal and reactive Chest: Bilateral bronchial breath sounds with occasional rhonchi all over the lung jones, appropriate air entry all over the lung jones. Coarse crackles present in left lower zone CVS: S1-S2 regular, no murmurs, no tachycardia, no gallops, no rubs Abdomen: Soft, nontender, no organomegaly, bowel sounds present Neuro: No focal deficits, no facial deformity, AO x3, power 5/5 in all limbs Data : 08/24/20 03:20 08/24/20 03:20 Micro: Microbiology 08/23/20 23:16 Blood Culture - Preliminary Blood SPECIMEN COLLECTED 08/23/20 18:06 Blood Culture - Preliminary Blood SPECIMEN COLLECTED A&P Assessment and plan (1) ARDS (adult respiratory distress syndrome): Status: Acute (2) Sepsis: Status: Acute (3) Pneumonia: Status: Acute Qualifiers: Laterality: left Lung location: lower lobe of lung Pneumonia type: due to unspecified organism Qualified Code(s): J18.9 - Pneumonia, unspecified o rganism (4) Acute exacerbation of chronic obstructive pulmonary disease: Status: Acute (5) VIVIANA (acute kidney injury): Status: Acute (6) Dehydration: Status: Acute (7) Diarrhea: Status: Acute (8) Acute respiratory failure with hypoxia: Status: Acute Additional A&P Information ARDS: ABG appreciated. PaO2 56% on 13 L oxygen mask. Sepsis due to community-acquired pneumonia: Rapid Covid antigen negative in the ER. Cannot rule out COVID-19 because symptomatology. COVID-19 PCR has been sent. Continue isolation precautions. Given the fact that patient is extremely sick we will change the antibiotics to vancomycin and Zosyn. Check MRSA swab, sputum culture, urine Legionella, bacterial antigen, urinalysis, urine culture. Follow-up blood cultures. Will de-escalate antibiotics as per the culture results. Continue with azithromycin. Switch p.o. to IV. Patient has a history of Streptococcus pneumonia most recently in May 2020. Wean oxygen supplementation keeping saturation above 88%. Start patient on DuoNebs every 4 hours, budesonide twice daily through high flow. Start patient on Solu-Medrol 60 mg IV every 6 hours. Vitamin C, zinc. Tessalon Perles. Echocardiogram. Patient seems euvolemic at present. Stop IV fluids. Given ARDS we will try to keep patient little dry as possible. For possible: Normal continue to follow-up with inflammatory markers including CRP, LDH, fibrinogen, D-dimer. CTA done in the ER negative for pulmonary embolism. We will continue to monitor. D-dimer elevated on ED admission. If patient requiring more oxygen supplementation we will switch over to full dose anticoagulation at that point. Keep mean arterial pressure over 65 mmHg. Diarrhea: Most likely secondary to viral prodrome. Patient is euvolemic now. Stop IV fluids. Stool studies have been requested. VIVIANA secondary to dehydration: Resolved. Medical reconciliation done for nephrotoxic drugs. Continue to monitor BMP levels daily. No electrode normality at present. Hydrops gallbladder incidental finding, normal liver enzymes, afebrile, normal bilirubin level, will request liver/gallbladder ultrasound CODE STATUS: Full code. Confirmed with patient and patient's granddaughter who is a nurse at ER. They are okay with patient getting intubated if needed for short-term. Cardiac diet DVT prophylaxis: Heparin. Transfer to ICU for close monitoring given severe ARDS. Attestations Medical Necessity Statement*: Patient requires further hospitalization for management of ARDS because of community-acquired pneumonia in setting of severe COPD. Time Spent in Patient Care: Greater than 35 minutes (>than 50% of time spent in counselling and/or direct pt care on unit) . Coding Level of Care Code Acute Alliances Consultant for [facility] Fwd Diagnoses ARDS (adult respiratory distress syndrome) J80 Sepsis A41.9 Pneumonia J18.9 Laterality: left Lung location: lower lobe of lung Pneumonia type: due to unspecified organism Acute exacerbation of chronic obstructive pulmonary disease J44.1 VIVIANA (acute kidney injury) N17.9 Dehydration E86.0 Diarrhea R19.7 Acute respiratory failure with hypoxia J96.01
[2020-08-24 10:41] LABS: SARS Covid-2 Antigen Negative (Negative)
[2020-08-24] MEDS: ipratropium-albuterol 3 mL Neb INHALATION ×3 (11:16→21:08)
--- NOTE | 2020-08-24 11:18 | PC.NURSE ---
patient take to ICU for closer monitoring of symptoms Daughter Mariangel notified of transfer.
[2020-08-24] MEDS: vancomycin 1,000 MG in sodium chloride 0.9% 250 ML 250 MG IV (11:34)
[2020-08-24 11:39] LABS: Bilirubin Urine Neg (Negative); Blood Urine Trace (Negative); Glucose Urine UA Norm (Normal); Ketones Urine 1+ (Negative); Leukocyte Esterase Urine Negative (Negative); Nitrate Urine Negative (Negative); Protein Urine Neg (Negative); Specific Gravity, Urine 1.015 (1.005-1.030); Urine Appearance Clear (CLEAR); Urine Color Yellow (Yellow); Urobilinogen Urine 1 mg/dL (Negative)
[2020-08-24 11:57] LABS: Add Urine Culture? No; Amorphous Sediment Urine 1+ /hpf; Bacteria Urine 1+ /hpf; Fine Granular Casts Urine 0-4 /lpf; RBC Urine RARE /hpf (0-2); Squamous Epithelial Cell Urine 0-4 /hpf (0-5)
[2020-08-24 12:09] LABS: Glucose Point of Care 142 mg/dL (70-110)
[2020-08-24] MEDS: benzonatate 100 mg Capsule PO ×2 (14:52→20:42)
[2020-08-24] MEDS: ascorbic acid 500 mg Tablet 1000 MG PO (17:21)
[2020-08-24 17:28] LABS: Glucose Point of Care 170 mg/dL (70-110)
[2020-08-24 20:53] LABS: Glucose Point of Care 164 mg/dL (70-110)
[2020-08-24] MEDS: budesonide 0.5 mg/2 mL Neb INHALATION (21:08)
[2020-08-24 21:25] LABS: Iron 15 ug/dL (59-158); Percent Saturation 8.2 % (20-50); Total Iron Binding Capacity 181 mcg/dl; Unsaturated Iron Binding 166 ug/dL (112-347)
[2020-08-25] VITALS (40 sets, daily range): BP systolic 91–139; BP diastolic 52–84; PULSE 78–102; RESP 13–28; TEMP 36.6–36.8; O2SAT 82–98
[2020-08-25] MEDS: ipratropium-albuterol 3 mL Neb INHALATION ×5 (00:22→21:38)
[2020-08-25] MEDS: heparin 5,000 unit/mL INJ 1 mL 5000 UNIT SUBCUT ×3 (01:54→17:28)
[2020-08-25] MEDS: piperacillin-tazobactam 3.375 GM in sodium chloride 0.9% (plus) 50 ML IV ×3 (01:54→17:44)
[2020-08-25 03:41] LABS: Hematocrit 35.7 % (42.0-52.0); Hemoglobin 12.7 g/dL (11.7-16.6); Mean Corpuscular HGB Conc 35.6 g/dL (30.0-36.0); Mean Corpuscular Hemoglobin 34.8 pg (28.0-34.0); Mean Corpuscular Volume 97.8 fL (80-94); Mean Platelet Volume 11.3 fL (7.4-10.4); Platelet Count 151 10^3/cmm (130-400); Red Blood Count 3.65 10^6/uL (4.1-5.3); Red Cell Distribution Width 14.3 % (12.1-15.1); White Blood Count 8.4 10^3/uL (4.0-10.0)
[2020-08-25 03:49] LABS: ABG PH Result 7.46 (7.35-7.45); Arterial Blood Gas Hematocrit 40.8 % (42-52); Base Excess ABG -0.9 mmol/L (-2.0-2.0); Blood Gas Sample Type Arterial; Carboxyhemoglobin 0.9 %THgb (0.4-20.1); HCO3 ABG 22.1 mmol/L (22-26); HGB O2 Sat 90.4 % (95-100); Ionized Calcium Level - ABG 1.2 mmol/L (1.1-1.4); Methemoglobin 0.7 % (0.4-1.5); Oxygen Saturation ABG 91.9; PO2 ABG 57.6 mmHg (80.0-100.0); Potassium Level - ABG 3.1 mmol/L (3.5-5.0); Total Hemoglobin 13.3 g/dL (14-18)
[2020-08-25 03:50] LABS: Alveolar-Arterial Oxygen Gradi 24.5 mmHg (5-10); Blood Gas Sample Site Brachial, left; Oxygen Device NC
[2020-08-25 04:00] LABS: Fibrinogen 663 mg/dL (174-498)
[2020-08-25 04:02] LABS: D Dimer 1.33 ug/mIFEU (0-0.59)
[2020-08-25 04:11] LABS: Alanine Aminotransferase 9 U/L (0-41); Albumin Level 2.6 g/dL (3.5-5.2); Alkaline Phosphatase 56 IU/L (40-130); Anion Gap 13.9 (5-19); Aspartate Amino Transferase 10 U/L (0-40); Blood Urea Nitrogen 24 mg/dL (8-23); Calcium 8.6 mg/dL (8.5-10.5); Carbon Dioxide 21 mmol/L (22-29); Chloride 101 mmol/L (98-107); Globulin 2.5 g/dL (1.3-4.6); Glucose 156 mg/dL (65-115); Osmolality Calculated 283 mOsm/kg (285-295); Sodium 133 mmol/L (136-145); Total Bilirubin 0.3 mg/dL (0.15-1.2); Total Protein 5.1 g/dL (6.6-8.7)
[2020-08-25 04:15] LABS: C Reactive Protein 221.1 mg/L (0.0-4.9); Creatine Phosphokinase 35 U/L (39-308); Ferritin 689 ng/mL (30-400); Lactate Dehydrogenase 131 U/L (135-225); NT Pro B Type Natriuretic Pept 509 pg/mL (0-450)
[2020-08-25 04:16] LABS: Potassium 2.9 mmol/L (3.5-5.1)
[2020-08-25 05:09] LABS: Absolute Segmented Neutrophil 7.9 10/cmm (1.6-7.1); Segmented Neutrophils 94 %; Total Cells Counted 100 (0-100)
[2020-08-25 05:10] LABS: Absolute Neutrophil 7.9 10^3/cmm (1.4-6.5); Anisocytosis 1+; Eosinophils 0 %; Lymphocytes 5 %; Macrocytosis Trace; Monocytes Absolute 0.1 10^3/cmm (0.1-0.6); Platelet Estimate Normal (Normal); Polychromasia Trace
--- NOTE | 2020-08-25 05:58 | XR_ITS ---
WS: [id number] PORTABLE CHEST HISTORY: COVID COMPARISON: 08/23/2020 Increase in the linear opacifications at the RIGHT lung base. Patchy areas of consolidation over the mid and lower LEFT lung have slightly worsened also. No pleural effusion or pneumothorax. Cardiac size: Normal. Mediastinum/Aorta: Mild atherosclerosis aorta. No osseous abnormality seen. XR/XR chest 1V portable [id number] IMPRESSION: Mild progression of bilateral pulmonary opacifications since 08/23/2020.
[2020-08-25 07:27] LABS: Coronavirus Lab Test PTC Negative
[2020-08-25 07:52] LABS: Glucose Point of Care 168 mg/dL (70-110)
[2020-08-25] MEDS: azithromycin 500 MG in sodium chloride 0.9% 250 ML 250 MG IV (08:17)
[2020-08-25] MEDS: budesonide 0.5 mg/2 mL Neb INHALATION ×2 (08:22→21:37)
[2020-08-25] MEDS: citalopram 20 mg Tablet 10 MG PO (08:26)
[2020-08-25] MEDS: benzonatate 100 mg Capsule PO (08:26)
[2020-08-25] MEDS: zinc gluconate 50 mg Tablet PO (08:26)
[2020-08-25] MEDS: ascorbic acid 500 mg Tablet 1000 MG PO (08:26)
--- NOTE | 2020-08-25 09:00 | PM.PN ---
Subjective Subjective: Interval history: This morning patient was seen in ICU. Patient is a lot more comfortable. States he is feeling a lot better. Today morning he is on high flow nasal cannula at 12 L/min saturating 92%. States his cough has improved. Denies any nausea, vomiting, headache. Has had bowel movement. Has remained afebrile and hemodynamically stable. Labs noted. Vitals/I&O/Wt Last Vital Signs Temp 97.9 F 08/25/20 08:00 Pulse 83 08/25/20 08:30 Resp 28 H 08/25/20 08:30 BP 97/61 08/25/20 08:00 Pulse Ox 90 08/25/20 08:30 08/24/20 08/25/20 08/25/20 22:59 06:59 14:59 Intake Total 530 / 1060 480 / 1540 800 / 800 Output Total 500 / 1000 1050 / 2050 Balance 30 / 60 -570 / -510 800 / 800 Weight last 48 hrs Weight 61.235 kg Physical Exam Narrative: EXAM NARRATIVE: General: No acute distress, AO x3 HEENT: PERRLA, pupils bilaterally equal and reactive Chest: Bilateral bronchial breath sounds with occasional rhonchi all over the lung jones, appropriate air entry all over the lung jones. Coarse crackles present in left lower zone CVS: S1-S2 regular, no murmurs, no tachycardia, no gallops, no rubs Abdomen: Soft, nontender, no organomegaly, bowel sounds present Neuro: No focal deficits, no facial deformity, AO x3, power 5/5 in all limbs Urinary Catheter Management^: Juarez: Cath Placed During This Visit: yes Reason for Continuing Indwelling Catheter: Accurate Measurement of Urinary Output in Critically Ill Patients Urinary Catheter Date of Insertion: 08/24/20 Urinary Catheter Time of Insertion: 10:30 Data : 08/25/20 03:05 08/25/20 03:05 Micro: Microbiology 08/23/20 23:16 Blood Culture - Preliminary Blood NEGATIVE TO DATE 08/23/20 18:06 Blood Culture - Preliminary Blood NEGATIVE TO DATE 08/24/20 16:00 Gram Stain - Final Sputum - Expectorated Sputum 08/24/20 10:45 Legionella Urinary Antigen - Final Urine Catheterized 08/24/20 10:45 Bacterial Antigens - Final Urine,Clean Catch A&P Assessment and plan (1) ARDS (adult respiratory distress syndrome): Status: Acute (2) Sepsis: Status: Acute (3) Pneumonia: Status: Acute Qualifiers: Laterality: left Lung location: lower lobe of lung Pneumonia type: due to unspecified organism Qualified Code(s): J18.9 - Pneumonia, unspecified organism (4) Acute exacerbation of chronic obstructive pulmonary disease: Status: Acute (5) VIVIANA (acute kidney injury): Status: Acute (6) Dehydration: Status: Acute (7) Diarrhea: Status: Acute (8) Acute respiratory failure with hypoxia: Status: Acute Additional A&P Information ARDS: ABG appreciated. Improving. Sepsis due to community-acquired pneumonia: COVID-19 negative. Remove isolation precautions. Continue with vancomycin and Zosyn for now. Urine Legionella, bacterial antigen negative. MRSA pending. If MRSA negative can stop vancomycin. Blood cultures have remained negative so far. Continue with azithromycin to finish a 3-day course. Will de-escalate antibiotics as per the culture results. Patient has a history of Streptococcus pneumonia most recently in May 2020. Wean oxygen supplementation keeping saturation above 88%. Continue with DuoNebs every 4 hours, budesonide twice daily through high flow. Continue with Solu-Medrol 60 mg every 6 hours for now. We will start weaning from tomorrow if patient continues to require less oxygen. Tessalon Perles as needed. Incentive spirometry, flutter valve. Echocardiogram shows an EF of 75% with mild LVH, grade 1 diastolic dysfunction, trace TR, normal PASP. Patient seems euvolemic at present. Given ARDS we will try to keep patient little dry as possible. CTA done in the ER negative for pulmonary embolism. Keep mean arterial pressure over 65 mmHg. Diarrhea: Resolved. Most likely secondary to viral prodrome. VIVIANA secondary to dehydration: Resolved. Medical reconciliation done for nephrotoxic drugs. Continue to monitor BMP levels daily. No electrode normality at present. Hydrops gallbladder incidental finding, normal liver enzymes, afebrile, normal bilirubin level, will request liver/gallbladder ultrasound CODE STATUS: Full code. Confirmed with patient and patient's granddaughter who is a nurse at ER. They are okay with patient getting intubated if needed for short-term. Cardiac diet DVT prophylaxis: Heparin. Plan for today: Aggressive pulmonary toilet, continue broad-spectrum antibiotics for possible pneumonia leading to COPD exacerbation. Resolving VIVIANA. Attestations Medical Necessity Statement*: Requires further hospitalization for management of ARDS most likely because of pneumonia leading to COPD exacerbation, resolving acute kidney injury Time Spent in Patient Care: Greater than 35 minutes (>than 50% of time spent in counselling and/or direct pt care on unit). Coding Level of Care Code Acute Tablet Making Machine Operator for g Fwd Diagnoses ARDS (adult respiratory distress syndrome) J80 Sepsis A41.9 Pneumonia J18.9 Laterality: left Lung location: lower lobe of lung Pneumonia type: due to unspecified organism Acute exacerbation of chronic obstructive pulmonary disease J44.1 VIVIANA (acute kidney injury) N17.9 Dehydration E86.0 Diarrhea R19.7 Acute respiratory failure with hypoxia J96.01
[2020-08-25] MEDS: potassium chloride ER 20 mEq Tablet 80 MEQ PO (09:28)
[2020-08-25] MEDS: famotidine 20 mg Tablet PO ×2 (09:28→17:28)
[2020-08-25] MEDS: vancomycin 1,000 MG in sodium chloride 0.9% 250 ML 250 MG IV (12:09)
[2020-08-25] MEDS: diclofenac 1% Topical Gel 100 gm 1 APPLIC TOPICAL (14:39)
[2020-08-25] MEDS: ferrous gluconate 324 mg Tablet PO (17:28)
[2020-08-26] VITALS (27 sets, daily range): BP systolic 96–132; BP diastolic 62–83; PULSE 77–94; RESP 16–30; TEMP 36.3–36.9; O2SAT 85–99; BMI 19.0
[2020-08-26] MEDS: heparin 5,000 unit/mL INJ 1 mL 5000 UNIT SUBCUT ×3 (01:14→17:11)
[2020-08-26] MEDS: piperacillin-tazobactam 3.375 GM in sodium chloride 0.9% (plus) 50 ML IV ×3 (02:00→17:11)
[2020-08-26] MEDS: ipratropium-albuterol 3 mL Neb INHALATION ×4 (03:24→20:01)
[2020-08-26 03:59] LABS: Hematocrit 36.3 % (42.0-52.0); Hemoglobin 12.6 g/dL (11.7-16.6); Mean Corpuscular HGB Conc 34.7 g/dL (30.0-36.0); Mean Corpuscular Hemoglobin 34.7 pg (28.0-34.0); Mean Platelet Volume 11.4 fL (7.4-10.4); Platelet Count 144 10^3/cmm (130-400); Red Blood Count 3.63 10^6/uL (4.1-5.3); Red Cell Distribution Width 14.8 % (12.1-15.1); White Blood Count 6.1 10^3/uL (4.0-10.0)
[2020-08-26 04:15] LABS: Alanine Aminotransferase 11 U/L (0-41); Albumin Level 2.6 g/dL (3.5-5.2); Alkaline Phosphatase 54 IU/L (40-130); Blood Urea Nitrogen 16 mg/dL (8-23); Carbon Dioxide 23 mmol/L (22-29); Chloride 104 mmol/L (98-107); Globulin 2.4 g/dL (1.3-4.6); Glucose 165 mg/dL (65-115); Osmolality Calculated 287 mOsm/kg (285-295); Sodium 136 mmol/L (136-145); Total Bilirubin 0.2 mg/dL (0.15-1.2)
[2020-08-26 04:18] LABS: Anion Gap 12.7 (5-19); Aspartate Amino Transferase 13 U/L (0-40); Potassium 3.7 mmol/L (3.5-5.1)
[2020-08-26 05:38] LABS: Absolute Segmented Neutrophil 5.6 10/cmm (1.6-7.1); Lymphocytes 5 %; Segmented Neutrophils 91 %; Total Cells Counted 100 (0-100)
[2020-08-26 05:39] LABS: Absolute Neutrophil 5.6 10^3/cmm (1.4-6.5); Anisocytosis 1+; Eosinophils 0 %; Macrocytosis 1+; Monocytes Absolute 0.2 10^3/cmm (0.1-0.6); Platelet Estimate Normal (Normal)
[2020-08-26] MEDS: famotidine 20 mg Tablet PO ×2 (08:05→17:10)
[2020-08-26] MEDS: ascorbic acid 500 mg Tablet PO (08:05)
[2020-08-26] MEDS: ferrous gluconate 324 mg Tablet PO ×2 (08:05→17:10)
[2020-08-26] MEDS: azithromycin 500 MG in sodium chloride 0.9% 250 ML 250 MG IV (08:05)
[2020-08-26] MEDS: citalopram 20 mg Tablet 10 MG PO (08:06)
[2020-08-26] MEDS: budesonide 0.5 mg/2 mL Neb INHALATION ×2 (09:07→20:01)
--- NOTE | 2020-08-26 17:57 | PM.PN ---
Subjective Subjective: Interval history: On examination patient doing a lot better. He is on 3 L saturating 92%. Denies any nausea, vomiting, headache, dizziness. He sitting up in chair and able to walk around in the room without much difficulty in breathing. States he thinks he is at his baseline with breathing now. Remains afebrile, Hemodynamically stable. Vitals/I&O/Wt Last Vital Signs Temp 98.3 F 08/26/20 12:00 Pulse 88 08/26/20 16:00 Resp 21 H 08/26/20 16:00 BP 132/79 08/26/20 16:00 Pulse Ox 91 08/26/20 16:00 08/26/20 08/26/20 08/26/20 06:59 14:59 22:59 Intake Total 1100 / 1100 50 / 1150 Output Total 700 / 2300 800 / 800 Balance -700 / -100 300 / 300 50 / 350 Weight last 48 hrs Weight 61.961 kg Physical Exam Narrative: EXAM NARRATIVE: General: No acute distress, AO x3 HEENT: PERRLA, pupils bilaterally equal and reactive Chest: Bilateral bronchial breath sounds with occasional rhonchi all over the lung jones, appropriate air entry all over the lung jones. Coarse crackles present in left lower zone CVS: S1-S2 regular, no murmurs, no tachycardia, no gallops, no rubs Abdomen: Soft, nontender, no organomegaly, bowel sounds present Neuro: No focal deficits, no facial deformity, AO x3, power 5/5 in all limbs Urinary Catheter Management^: Ujarez: Cath Placed During This Visit: yes, but has since been removed by the nurse Reason for Continuing Indwelling Catheter: Accurate Measurement of Urinary Output in Critically Ill Patients Urinary Catheter Date of Insertion: 08/24/20 Urinary Catheter Time of Insertion: 10:30 Date Urinary Catheter Removed: 08/26/20 Time Urinary Catheter Discontinued: 09:47 Data : 08/26/20 03:14 08/26/20 03:14 Micro: Microbiology 08/24/20 16:00 Gram Stain - Final Sputum - Expectorated Sputum Sputum Culture - Preliminary 08/24/20 14:00 MRSA Culture - Final Nose A&P Assessment and plan (1) ARDS (adult respiratory distress syndrome): Status: Acute (2) Sepsis: Status: Acute (3) Pneumonia: Status: Acute Qualifiers: Laterality: left Lung location: lower lobe of lung Pneumonia type: due to unspecified organism Qualified Code(s): J18.9 - Pneumonia, unspecified organism (4) Acute exacerbation of chronic obstructive pulmonary disease: Status: Acute (5) VIVIANA (acute kidney injury): Status: Acute (6) Dehydration: Status: Acute (7) Diarrhea: Status: Acute (8) Acute respiratory failure with hypoxia: Status: Acute Additional A&P Information ARDS: ABG appreciated. Improving. Sepsis due to community-acquired pneumonia: COVID-19 negative. Remove isolation precautions. Continue with Zosyn. Stop vancomycin as MRSA is negative. Urine Legionella, bacterial antigen negative. Blood cultures have remained negative so far. Stop azithromycin as patient has finished 3-day course. Patient has a history of Streptococcus pneumonia most recently in May 2020. Wean oxygen supplementation keeping saturation above 88%. DuoNebs every 6 hours, budesonide twice daily through high flow. Wean Solu-Medrol to 60 mg every 12 hours for now. Most likely patient will need slow taper as an outpatient. Tessalon Perles as needed. Incentive spirometry, flutter valve. Echocardiogram shows an EF of 75% with mild LVH, grade 1 diastolic dysfunction, trace TR, normal PASP. Patient seems euvolemic at present. Given ARDS we will try to keep patient little dry as possible. CTA done in the ER negative for pulmonary embolism. Keep mean arterial pressure over 65 mmHg. Diarrhea: Resolved. Most likely secondary to viral prodrome. VIVIANA secondary to dehydration: Resolved. Medical reconciliation done for nephrotoxic drugs. Continue to monitor BMP levels daily. No electrode normality at present. Hydrops gallbladder incidental finding, normal liver enzymes, afebrile, normal bilirubin level, will request liver/gallbladder ultrasound CODE STATUS: Full code. Confirmed with patient and patient's granddaughter who is a nurse at ER. They are okay with patient getting intubated if needed for short-term. Cardiac diet DVT prophylaxis: Heparin. Plan for today: Aggressive pulmonary toilet, diabetic to Zosyn as MRSA is negative. Continue treatment for COPD exacerbation while weaning down the steroids. Transfer to floors. Patient will need home O2 evaluation prior to discharge. Attestations Medical Necessity Statement*: Patient needs further hospitalization for pneumonia leading to COPD exacerbation. Time Spent in Patient Care: Greater than 35 minutes (>than 50% of time spent in counselling and/or direct pt care on unit). Coding Level of Care Code Acute Returned Goods Repairer for Chg Fwd Diagnoses ARDS (adult respiratory distress syndrome) J80 Sepsis A41.9 Pneumonia J18.9 Laterality: left Lung location: lower lobe of lung Pneumonia type: due to unspecified organism Acute exacerbation of chronic obstructive pulmonary disease J44.1 VIVIANA (acute kidney injury) N17.9 Dehydration E86.0 Diarrhea R19.7 Acute respiratory failure with hypoxia J96.01
[2020-08-27] VITALS (19 sets, daily range): BP systolic 96–134; BP diastolic 55–85; PULSE 72–99; RESP 16–24; TEMP 36.6; O2SAT 85–98
[2020-08-27] MEDS: heparin 5,000 unit/mL INJ 1 mL 5000 UNIT SUBCUT (02:22)
[2020-08-27] MEDS: ipratropium-albuterol 3 mL Neb INHALATION ×3 (02:40→14:41)
[2020-08-27] MEDS: piperacillin-tazobactam 3.375 GM in sodium chloride 0.9% (plus) 50 ML IV ×2 (02:49→10:25)
[2020-08-27 04:22] LABS: Basophils % 0.5 %; Hematocrit 38.2 % (42.0-52.0); Hemoglobin 13.3 g/dL (11.7-16.6); Lymphocytes # 0.5 10^3/uL (0.8-4.8); Lymphocytes % 12.8 %; Mean Corpuscular HGB Conc 34.8 g/dL (30.0-36.0); Mean Corpuscular Hemoglobin 34.9 pg (28.0-34.0); Mean Corpuscular Volume 100.3 fL (80-94); Mean Platelet Volume 11.3 fL (7.4-10.4); Monocytes # 0.3 10^3/uL (0.2-0.9); Monocytes % 7.8 %; Neutrophils # 2.97 10^3/uL (1.8-7.7); Neutrophils % 77.3 %; Nucleated Red Blood Cells % 0 %; Platelet Count 161 10^3/cmm (130-400); Red Blood Count 3.81 10^6/uL (4.1-5.3); White Blood Count 3.8 10^3/uL (4.0-10.0)
[2020-08-27 04:44] LABS: Alanine Aminotransferase 13 U/L (0-41); Albumin Level 2.9 g/dL (3.5-5.2); Alkaline Phosphatase 51 IU/L (40-130); Anion Gap 14.6 (5-19); Aspartate Amino Transferase 11 U/L (0-40); Blood Urea Nitrogen 15 mg/dL (8-23); Calcium 9.3 mg/dL (8.5-10.5); Carbon Dioxide 22 mmol/L (22-29); Chloride 104 mmol/L (98-107); Globulin 2.4 g/dL (1.3-4.6); Glucose 120 mg/dL (65-115); Osmolality Calculated 286 mOsm/kg (285-295); Potassium 3.6 mmol/L (3.5-5.1); Sodium 137 mmol/L (136-145); Total Bilirubin 0.3 mg/dL (0.15-1.2); Total Protein 5.3 g/dL (6.6-8.7)
--- NOTE | 2020-08-27 06:00 | XR_ITS ---
WS: [id number] XR chest 1V portable [id number] REASON FOR EXAM: covid FINDINGS: Compared to 08/25/2020, the chest is relatively unchanged with infiltrative changes seen in the mid an d lower left lung field and in the early right lower lung field. No new findings or other interval change. XR/XR chest 1V portable [id number] IMPRESSION: Stable abnormal chest as above.
[2020-08-27] MEDS: ascorbic acid 500 mg Tablet PO (08:17)
[2020-08-27] MEDS: ferrous gluconate 324 mg Tablet PO (08:17)
[2020-08-27] MEDS: famotidine 20 mg Tablet PO (08:17)
[2020-08-27] MEDS: citalopram 20 mg Tablet 10 MG PO (08:17)
[2020-08-27] MEDS: azithromycin 500 MG in sodium chloride 0.9% 250 ML 250 MG IV (08:17)
[2020-08-27] MEDS: budesonide 0.5 mg/2 mL Neb INHALATION (08:47)
--- NOTE | 2020-08-27 08:55 | PC.SOCIAL ---
IMM Page 2 of IMM explained to patient. Initialed, dated, and timed and placed in chart. Copy provided to patient.
--- NOTE | 2020-08-27 10:01 | PC.NURSE ---
heparin not given d/t pt. being discharged.
--- NOTE | 2020-08-27 10:48 | P.DS_ITS ---
Discharge Providers Date of Admission: 08/24/20 01:33 Date of Discharge: August 27, 2020 Attending Provider at Admission: Amy Feliciano MD Attending Provider at Discharge: Jose Martin Armijo MD Primary Care Provider: MADELINE Kwon Diagnoses at Discharge Discharge Diagnosis (1) ARDS (adult respiratory distress syndrome): Status: Acute (2) Sepsis: Status: Acute (3) Pneumonia: Status: Acute Qualifiers: Laterality: left Lung location: lower lobe of lung Pneumonia type: due to unspecified organism Qualified Code(s): J18.9 - Pneumonia, unspecified organism (4) Acute exacerbation of chronic obstructive pulmonary disease: Status: Acute (5) VIVIANA (acute kidney injury): Status: Acute (6) Dehydration: Status: Acute (7) Diarrhea: Status: Acute (8) Acute respiratory failure with hypoxia: Status: Acute Reason for Visit Reason for Visit: COUGH, SOB, BODY ACHES Hospital Course Hospital Course George Arriaga is a 80 year old male who carries history of COPD, uses oxygen on as-needed basis, nocturnal hypoxemia, essential tremor presented presented on August 23, 2020. Most of the history was taken through granddaughter who is a ER nurse. As per her patient is on 2 L of oxygen only on exertion but for last 3 to 4 days he has been having diarrhea, feeling more tired fatigued, having myalgias and requiring more oxygen until yesterday when he was not able to catch his breath so was brought to the ER. No potential exposure to COVID-19 positive patients other than granddaughter who works in the ER as a nurse. Patient has had occasional fevers for last 1 week. Patient states he has been maintaining social distancing and usually wears a mask when he goes in public. Patient was admitted to the cardiac stepdown unit but as he was requiring high amount of oxygen going as high as 90% FiO2 with 40 L heated high flow nasal cannula to maintain saturation 90% he was moved to the ICU. COVID-19 was tested and it was it came back negative. CT chest was done on admission which was negative for pulmonary embolism but was consistent with left lower lobe pneumonia with baseline severe pulmonary emphysema. Echocardiogram was done which showed EF of 75% with grade 1 diastolic dysfunction with mild LVH with normal PASP and trace TR. Patient was started on broad-spectrum antibiotics for severity of her symptoms, IV steroids nebulizer for COPD. Patient responded well to the treatment and course comfortably saturating between 85 to 90% on room air both at rest and on minimal ambulation. Patient on discharge was able to have complete conversation without feeling out of breath, cough. He has been discharged in medically stable condition with advised to take Augmentin and levofloxacin for 3 more days to finish a course of antibiotics. He has been discharged on slow steroid taper. Home O2 evaluation has been done prior to discharge. He has been advised to follow-up with his primary care provider within next 2 weeks and resistance brazer in next 2 weeks. Physical Exam Narrative: EXAM NARRATIVE: General: No acute distress, AO x3 HEENT: PERRLA, pupils bilaterally equal and reactive Chest: Bilateral bronchial breath sounds with occasional rhonchi all over the lung jones, appropriate air entry all over the lung jones. Coarse crackles present in left lower zone CVS: S1-S2 regular, no murmurs, no tachycardia, no gallops, no rubs Abdomen: Soft, nontender, no organomegaly, bowel sounds present Neuro: No focal deficits, no facial deformity, AO x3, power 5/5 in all limbs Urinary Catheter Management^: Juarez: Cath Placed During This Visit: yes, but has since been removed by the nurse Reason for Continuing Indwelling Catheter: Accurate Measurement of Urinary Output in Critically Ill Patients Urinary Catheter Date of Insertion: 08/24/20 Urinary Catheter Time of Insertion: 10:30 Date Urinary Catheter Removed: 08/26/20 Time Urinary Catheter Discontinued: 09:47 Discharge Data Data Completed and Pending: Completed Studies During Hospitalization Category Date Time Status CT angio chest PE protcl [id number] Stat Cat Scan 08/23/20 18:51 Completed XR chest 1V christiano ble [id number] Q48H Exams 08/27/20 06:00 Completed XR chest 1V christiano ble [id number] Routine Exams 08/25/20 05:58 Completed XR chest 1V christiano ble [id number] Stat Exams 08/23/20 17:52 Completed CV echo complete* [id number] Routine Ultrasound 08/24/20 09:50 Completed Pending at discharge Category Date Time Status XR chest 1V christiano ble [id number] Q48H Exams 08/29/20 06:00 Ordered Blood Culture Sta t Lab 08/23/20 23:16 Results Clostridioides Di fficile PCR Routin e Lab 08/25/20 20:05 Received Labs from last 24 hours 08/27/20 08/27/20 03:35 03:35 WBC 3.8 L RBC 3.81 L Hgb 13.3 Hct 38.2 L MCV 100.3 H MCH 34.9 H MCHC 34.8 RDW 15.0 Plt Count 161 MPV 11.3 H Neut % (Auto) 77.3 Lymph % (Auto) 12.8 [place] % (Auto) 7.8 Eos % (Auto) 0.0 Baso % (Auto) 0.5 Neut # (Auto) 2.97 Lymph # (Auto) 0.5 L [place] # (Auto) 0.3 Eos # (Auto) 0.0 Baso # (Auto) 0.0 Nucleated RBC % (a uto) 0 Nucleated RBCs # 0.0 Sodium 137 Potassium 3.6 Chloride 104 Carbon Dioxide 22 Anion Gap 14.6 BUN 15 Creatinine 0.7 GFR Calculation Not Reportable Glucose 120 H Calculated Osmolal ity 286 Calcium 9.3 Total Bilirubin 0.3 AST 11 ALT 13 Alkaline Phosphata se 51 Total Protein 5.3 L Albumin 2.9 L Globulin 2.4 Vitals: Last Vital Signs Temp 97.6 F 08/26/20 19:00 Pulse 88 08/27/20 08:49 Resp 16 08/27/20 08:47 BP 113/68 08/27/20 07:00 Pulse Ox 94 08/27/20 08:47 Discharge Plan Discharge Patient Disposition: Home Condition: Stable Prescriptions: New famotidine 20 mg Tablet 20 mg PO BID Qty: 60 RF: 0 ferrous gluconate 324 mg (37.5 mg iron) Tablet 324 mg PO BIDWM Qty: 60 RF: 0 prednisone 10 mg tablet See Taper mg PO DAILY Qty: 65 RF: 0 levofloxacin 500 mg tablet 500 mg PO DAILY 3 Days Qty: 3 RF: 0 Augmentin XR 1,000-62.5 mg tablet extended release 12 hr 1 tab PO BID Qty: 6 RF: 0 famotidine 20 mg tablet 20 mg PO BID Qty: 20 RF: 0 Pulmicort Flexhaler 180 mcg/actuation aerosol powdr breath activated 1 inh inhalation BID Qty: 1 RF: 0 ipratropium-albuterol 20-100 mcg/actuation mist 1 puff inhalation Q6H Qty: 4 RF: 0 Continued Celexa 10 mg Tablet 10 mg PO DAILY@0800 RF: 0 ibuprofen 200 mg Tablet 200 mg PO Q6H PRN (Reason: Pain) RF: 0 Ventolin HFA 90 mcg/actuation Hfa Aerosol Inhaler 2 puff INHALATION 6XD PRN (Reason: Shortness Of Breath) RF: 0 Ocuvite Adult 50 Plus 250-5-1 mg Capsule 1 cap PO DAILY@0800 RF: 0 Flovent HFA See Rx Instructions .ROUTE .COMPLEX RF: 0 Mucinex 400 mg PO DAILY PRN (Reason: Cold Symptoms) RF: 0 Held prednisone 5 mg Tablet 5 mg PO DAILY@0800 RF: 0 Hold Instructions: Resume on 09/15/20. Discharge Orders: Discharge Order (Routine); Ordered 08/27/20 Ordered By: Jose Martin Armijo Other Ambulatory Orders: DME: Oxygen (Order) Location: None Selected Ordered By: Jose Martin Armijo Referrals: DatarJavi MD [Physician] - 2 weeks (YOU HAVE FOLLOW UP FOR THE DATE OF SEPTEMBER 08, 2020Sunday , AT TIME OF 1:00 PM IF THIS APPOINTMENT IS NOT CONVIEIENT AT THE TIME PLEASE CALL, AND RESCHEDULE) Dee Alston, UPHOLSTERY DEPARTMENT SUPERVISOR [Primary Care Provider] - 4-7 days (YOU HAVE AN SC HEDULED FOLLOW UP APPOINTMENT FOR POST HOSPITAL STAY FOR THE FOLLOWING DATE AND TIME OF : SEPTEMBER 01, 2:30 ) Discharge Diet: Cardiac Discharge Activity: Resume usual activity and Increase activity as tolerated Patient Instructions: COPD, Iron Supplements (By mouth), Famotidine (By mouth), Ipratropium (By breathing), Prednisone (By mouth), Amoxicillin/Clavulanate Potassium (By mouth), Levofloxacin (By mouth), Budesonide (By breathing), Heart Healthy Diet, Viral Pneumonia (DC), Using Oxygen at Home (DC), Chronic Obstructive Pulmonary Disease (DC), Sepsis (DC), COPD Stoplight Discharge Attestations Time Spent in Discharge Care*: greater than 30 min Specific Discharge Activities: educating patient, educating and/or supporting family/caregiver, discussing with hospice case manager/social workers/dc planners, documenting/other paperwork and evaluating patient/reviewing data Status at Discharge: Cognitive status at discharge: cognitively intact , Behavioral status at discharge: cooperative , Functional status at discharge: independent ambulation Overall status at discharge: patient is progressing b ack to baseline Quality Metrics Clinical Quality Measures During this hospital stay, did patient experience: None Coding Level of Care Code Acute Insurance Verification Representative for Chg Fwd Diagnoses ARDS (adult respiratory distress syndrome) J80 Sepsis A41.9 Pneumonia J18.9 Laterality: left Lung location: lower lobe of lung Pneumonia type: due to unspecified organism Acute exacerbation of chronic obstructive pulmonary disease J44.1 VIVIANA (acute kidney injury) N17.9 Dehydration E86.0 Diarrhea R19.7 Acute respiratory failure with hypoxia J96.01
== END 2020-08-27 14:44 | disposition home or self-care (01) | DRG 871 ==
LOC: ER 22:59 → CSU 08-24 07:48 → MEDSURG 08-24 08:15 → ICU 08-24 11:03
PROVIDERS: Family Medicine; Admitting Provider Internal Medicine; Emergency Provider Emergency Medicine; PCP Nurse Practitioner; Visit Provider Student in an Organized Health Care Education/Training Program
DX: A41.9 Sepsis, unspecified organism (principal); J18.9 Pneumonia, unspecified organism; J96.01 Acute respiratory failure with hypoxia; J44.1 Chronic obstructive pulmonary disease with (acute) exacerbation; J44.0 Chronic obstructive pulmonary disease with (acute) lower respiratory infection; E46 Unspecified protein-calorie malnutrition; Z68.1 Body mass index [BMI] 19.9 or less, adult; N17.9 Acute kidney failure, unspecified; E87.2 Acidosis; K82.1 Hydrops of gallbladder; Z99.81 Dependence on supplemental oxygen; G25.0 Essential tremor; F17.210 Nicotine dependence, cigarettes, uncomplicated; E86.0 Dehydration; R19.7 Diarrhea, unspecified; Z87.01 Personal history of pneumonia (recurrent)
CPT/HCPCS: 12345; 36415; 36416; 36600; 51702; 71045; 71275; 80051; 80053; 81001; 82330; 82550; 82728; 82803; 82805; 82962; 83540; 83550; 83605; 83615; 83880; 84145; 84443; 84484; 85007; 85025; 85378; 85384; 85610; 86140; 86403; 87040; 87070; 87205; 87426; 87449; 87493; 87635; 87641; 93005; 93306; 94640; 96372; 96375; 99283; J0456; J0696; J1100; J1644; J1815; J2543; J2930; J3370; J3535; J7030; J7050; J7626; J8540; Q0144; Q9967

== ENCOUNTER → 2020-10-07 10:48 | Outpatient (BNVA) | payer OTHER, MEDICARE, SELFPAY | PROVIDERS: PCP Nurse Practitioner; Visit Provider Internal Medicine Pulmonary Disease | DX: Z20.822 Contact with and (suspected) exposure to COVID-19 (principal) | CPT/HCPCS: 87635 ==

== ENCOUNTER → 2020-10-22 09:37 | Outpatient (BNVA) | payer OTHER, MEDICARE, SELFPAY | PROVIDERS: PCP Nurse Practitioner; Visit Provider Internal Medicine Pulmonary Disease | DX: Z01.812 Encounter for preprocedural laboratory examination (principal) | CPT/HCPCS: 87635 ==

== ENCOUNTER 2020-10-26 12:50 | Outpatient (CLI) | payer OTHER, MEDICARE, SELFPAY ==
--- NOTE | 2020-10-26 14:10 | PFTS_ITS ---
Date of Study:10/26/20 Date of Dictation: MECHANICS: Forced vital capacity (FVC) is normal. Forced expiratory volume in one second (FEV1) is normal. FEV1/FVC is reduced. FLOW VOLUME LOOP: Scooping present. LUNG VOLUMES: Total lung capacity (TLC) is normal. Residual volume (RV) is normal. DIFFUSING CAPACITY FOR CARBON MONOXIDE: Severely reduced. INTERPRETATION: Postbronchodilator spirometry is consistent with mild airflow obstruction. There is no significant postbronchodilator response. Lung volumes are normal. Gas exchange (DLCO) is severely reduced, this has not been corrected for patient's hemoglobin. MTDD
== END 2020-10-26 12:51 | disposition home or self-care (01) ==
LOC: RT 12:51
PROVIDERS: PCP Nurse Practitioner; Visit Provider Internal Medicine Pulmonary Disease
DX: J96.01 Acute respiratory failure with hypoxia (principal); J43.2 Centrilobular emphysema
CPT/HCPCS: 94060; 94618; 94726; 94729; J7611

== ENCOUNTER 2022-04-19 19:40 | Inpatient (IN) | payer OTHER, MEDICARE, SELFPAY ==
[2022-04-19] VITALS (8 sets, daily range): BP systolic 88–115; BP diastolic 49–63; PULSE 78–92; RESP 17–26; TEMP 36.7–36.9; O2SAT 85–96; BMI 19.2
--- NOTE | 2022-04-19 19:58 | XRR_ITS ---
PROCEDURE INFORMATION: Exam: XR Chest Exam date and time: 04/19/2022 8:18 PM Age: 81 years old Clinical indication: Dyspnea TECHNIQUE: Imaging protocol: Radiologic exam of the chest. Views: 1 view. COMPARISON: CR XR chest 1V portable [id number] 08/27/2020 5:18 AM FINDINGS: Lungs: There is infiltrate and consolidation left lower lobe worrisome for pneumonia. Visualized portions of the right lung are clear. Changes of pulmonary emphysema stable. There is calcified granuloma right upper lobe. Pleural spaces: Unremarkable. No pleural effusion. No pneumothorax. Heart/Mediastinum: Unremarkable. No cardiomegaly. Bones/joints: Unremarkable. XR/XR chest 1V portable [id number] IMPRESSION: 1. Left lower lobe pneumonia. 2. COPD. COMMENTS: Follow-up radiography recommended after treatment to document complete clearing.
[2022-04-19] MEDS: ipratropium-albuterol 3 mL Neb INHALATION ×3 (20:15→21:05)
--- NOTE | 2022-04-19 20:19 | ECG_ITS ---
[facility] Test Date: 2022-04-19 Pat Name: George Arriaga Department: Room: Gender: Male Credit Clerk: : [id number] Requested By: Vishal Wood Order Number: [id number] Yuri MD: Leon Bobo M.D. Measurements Intervals [place] Rate: 79 P: 72 [place]: 194 QRS: -27 QRSD: 84 T: 91 QT: 350 QTc: 403 Interpretive Statements SINUS RHYTHM BORDERLINE LEFT AXIS DEVIATION [QRS AXIS < -20] NONSPECIFIC T-WAVE ABNORMALITY Compared to ECG 08/24/2020 00:19:07 T-wave abnormality now present Left anterior fascicular block no longer present Electronically Signed On 04-20-2022 14:22:01 CDT by Leon Bobo M.D. [id number]
[2022-04-19 20:21] LABS: ABG PCO2 28.8 mmHg (35-45); ABG PH Result 7.47 (7.35-7.45); Arterial Blood Gas Hematocrit 49.5 % (42-52); Base Excess ABG -1.2 mmol/L (-2.0-2.0); Blood Gas Allen Test Pos; Blood Gas LPM 3.5 %; Blood Gas Sample Site Radial, right; Oxygen Device NC; PO2 ABG 45.2 mmHg (80.0-100.0)
[2022-04-19 20:22] LABS: Hemoglobin 15.7 g/dL (11.7-16.6); Mean Corpuscular HGB Conc 33.4 g/dL (30.0-36.0); Mean Corpuscular Hemoglobin 34.8 pg (28.0-34.0); Mean Corpuscular Volume 104.2 fl (80-94); Mean Platelet Volume 11.2 fL (7.4-10.4); Platelet Count 137 10^3/cmm (130-400); Red Blood Count 4.51 10^6/uL (4.1-5.3); Red Cell Distribution Width 14.1 % (12.1-15.1); White Blood Count 7.1 10^3/uL (4.0-10.0)
[2022-04-19 20:24] LABS: Blood Gas Sample Type Arterial
--- NOTE | 2022-04-19 20:37 | PC.NURSE ---
Family states pt was visiting family out of state, one family member tested positive in the last day. Pt was found at home in respiratory distress. Cap refill greater than 3, dusky fingers, but face, lips pink. After being placed in bed, minimal increased work of breathing noted, which has improved from when he arrived. 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 Last drink yesterday around 1899. Had a fall on sunday, unwitnessed. Was initially fine, but since yesterday has had SOB, confusion, and hallucinations. Pt currently a,a,0x3. Resting in bed at this time. Bilat lung sounds are diminished.
[2022-04-19 20:38] LABS: INR 1.26 (0.8-1.2)
[2022-04-19 20:39] LABS: Fibrinogen 453 mg/dL (174-498); Partial Thromboplastin Time 36.9 SECONDS (23.9-36.7)
--- NOTE | 2022-04-19 20:39 | ED_ITS ---
HPI - General Adult General: Chief complaint: Shortness of Breath/Dyspnea Stated complaint: Low Oxgen Time Seen by Provider: 04/19/22 19:57 History of Present Illness: Patient is a 81-year-old male full code with a history of COPD previously not on oxygen, pneumonia presenting to the emergency room with concerns of dyspnea, generalized body aches, and fatigue. Over the weekend, patient went to [place] to see a rodeo. Patient was in contact with a friend who later was COVID-positive. Since Sunday patient has been having symptoms of chills, body aches and shortness of breath. Earlier today, patient came home and his daughter noted that he was satting in the 70% on home pulse ox. Patient was then brought to the emergency room. On arrival, patient is noted to have mild increased work of breathing. He was noted to be satting 87% on 6 L of oxygen. On arrival, patient's daughter also reports the patient has been having intermittent visual hallucination the last 2 days. Patient denies any diarrhea, change in taste, productive cough, abdominal complaints, nausea/vomiting, chest pain, or complaints. Onset: 3 days ago Duration:3 days Location:home Severity:severe Associated symptoms: Reports dyspnea; Deny chest pain, nausea, rash, palpitations or vomiting Review of Systems Const: Reports: fever(s), chills, fatigue and other (+body aches) Eyes: Denies: change in vision ENMT: Denies: mouth pain Card: Denies: chest pain or palpitations Resp: Reports: dyspnea; Denies: non-productive cough GI: Denies: abdominal pain, nausea, vomiting or diarrhea : Denies: dysuria Musc: Denies: extremity pain Skin/Breast: Denies: rash or new lesions Neuro: Denies: weakness in extremities Psych: Reports: other (Normal mood) Reed/Lymph: Denies: easy bruising PFSH ED PFSH: Medical History COPD (chronic obstructive pulmonary disease) Essential tremor Head trauma Lipoma, spermatic cord Malnourished Nicotine dependence Pneumothorax After accident, spontaneous pneumothorax, never required chest tube placement, left-sided Surgical History H/O inguinal hernia repair Family History Denies family history of Cancer Social History Smoking and tobacco status: current every day smoker cigarettes Packs smoked per day: 1 Years cigarettes smoked: 67 [ Other cigarette details: [id number]] Quit status (tobacco): considering quitting Second hand smoke exposure: Yes Smoking risk assessment/counseling performed?: Yes Alcohol intake: current Alcohol intake frequency: 0-2 Drinks per Day Caregiver/support person: Yes Lives independently: Yes Household members: none Housing: House Marital status: service: Yes Current occupational status: retired Pets and animals: Yes History of recent travel: No Current gender identity: Male Physical Exam Const: COMMON NORMALS: alert HENMT: COMMON NORMALS: atraumatic HEAD & SCALP: atraumatic MOUTH: moist mucous membranes not abnormal Eye: COMMON NORMALS: EOMs intact bilaterally and conjunctivae normal CONJUNCTIVA: Yes conjunctivae normal Neck/C-Spine: COMMON NORMALS: full ROM and supple Resp: OTHER: + Mild accessory muscle use, coarse breath sounds bilaterally with decreased breath sounds in the left lower lung Cardio: COMMON NORMALS: regular rate RATE: regular rate GI: COMMON NORMALS: Soft to palpation and non-tender PALPATION: Yes Soft to palpation OTHER: No focal TTP. NO guarding rebound, guarding, rigidity. No CVA tenderness to percussion. Neg Cortes/Neg McBurney's point tenderness, no suprabupic tenderness to palpation. Extremity: COMMON NORMALS: full ROM OTHER: +no lower extremity edema or swelling Neuro: SENSORIUM/ORIENTATION: Yes alert MOTOR EXAM: No Abnormal motor st rength present and Other motor observations present (no focal motor deficits) Psych: COMMON NORMALS: speech normal SPEECH: Yes normal speech MOOD & AFFECT: Yes euthymic mood Course Vital Signs: Vital signs: Vital Signs Temperature 98.5 F 04/19/22 19:55 Pulse Rate 82 04/19/22 21:09 Respiratory Rate 24 H 04/19/22 21:09 Blood Pressure 93/58 04/19/22 21:09 Pulse Oximetry 95 04/19/22 21:09 Oxygen Delivery Me thod 04/19/22 21:09 Oxygen Flow Rate 45 04/19/22 21:05 Fraction of Inspir ed Oxygen 45 04/19/22 21:05 MDM - General Adult Medical Decision Making 81-year-old male with history of COPD not previously oxygen, pneumonia, currentl y focal presenting to the emergency room for evaluation acute dyspnea, body aches cough for the last 3 days after being exposed to some with COVID. Patient on arrival, patient is afebrile. Patient is noted to have increased work of breathing with accessory muscle use. Patient is also noted to have decreased breath sounds in the right side with coarse from breath sounds bilaterally. Patient satting at 90% on 6 L of oxygen and deep. Patient is currently full code. ABG showed pH of 7.4 with O2 of 40. Patient not retaining carbon dioxide. COVID test is pending at this time. Patient is placed on high flow with improvement in respiratory status. Patient received DuoNeb and Solu-Medrol for dyspnea. He was found to have white count 7.1. Pro-Glenn and CRP of her to be very elevated. X-ray chest shows left lower opacity concerning for pneumonia. Patient has a lactic acid of 3.2. Patient received vancomycin and cefepime. Patient is currently hemodynamically stable with no increased respiratory distress. CTA has been ordered at this time. COVID swab pending. Consulted for the patient has chronic history of alcohol abuse complicated by alcohol withdrawal. Patient received 1 mg Ativan. Patient has no seizure-like activity or tremulousness to suggest acute withdrawal. Disposition: admission Lab Data : 04/19/22 20:13 04/19/22 20:13 Radiology Impressions Chest X-Ray 04/19/22 19:58 IMPRESSION: 1. Left lower lobe pneumonia. 2. COPD. COMMENTS: Follow-up radiography recommended after treatment to document complete clearing. Laboratory Results WBC 7.1 10^3/uL (4.0-10.0) 04/19/22 20:13 RBC 4.51 10^6/uL (4.1-5.3) 04/19/22 20:13 Hgb 15.7 g/dL (11.7-16.6) 04/19/22 20:13 Hct 47.0 % (42.0-52.0) 04/19/22 20:13 MCV 104.2 fl (80-94) H 04/19/22 20:13 MCH 34.8 pg (28.0-34.0) H 04/19/22 20:13 MCHC 33.4 g/dL (30.0-36.0) 04/19/22 20:13 RDW 14.1 % (12.1-15.1) 04/19/22 20:13 Plt Count 137 10^3/cmm (130-400) 04/19/22 20:13 MPV 11.2 fL (7.4-10.4) H 04/19/22 20:13 Lymph % (Auto) Not Reportable 04/19/22 20:13 [place] % (Auto) Not Reportable 04/19/22 20:13 Lymph # (Auto) Not Reportable 04/19/22 20:13 [place] # (Auto) Not Reportable 04/19/22 20:13 Total Counted 100 (0-100) 04/19/22 20:13 Atypical Lymphs % 5.0 % (0-5) 04/19/22 20:13 Absolute Neutrophils 4.0 10^3/cmm (1.4-6.5) 04/19/22 20:13 Segmented Neutrophils 33 % 04/19/22 20:13 Abs Segm Neuts (Man) 2.3 10/cmm (1.6-7.1) 04/19/22 20:13 Band Neutrophils 23.0 % 04/19/22 20:13 Abs Band Neuts (Man) 1.6 10^3/cmm (0.0-1.2) H 04/19/22 20:13 Absolute Lymphocytes 0.7 10^3/cmm (1.2-3.4) L 04/19/22 20:13 Lymphocytes (Manual) 5 % 04/19/22 20:13 Monocytes (Manual) 1.0 % 04/19/22 20:13 Absolute Monocytes 0.1 10^3/cmm (0.1-0.6) 04/19/22 20:13 Eosinophils (Manual) 0 % 04/19/22 20: Absolute Eosinophils 0.0 10^3/cmm (0.0-0.7) 04/19/22 20:13 Basophils (Manual) 0.0 % 04/19/22 20:13 Absolute Basophils 0.0 10^3/cmm (0.0-0.2) 04/19/22 20:13 Metamyelocytes 15.0 % 04/19/22 20:13 Myelocytes 18.0 % 04/19/22 20:13 Platelet Estimate Normal (Normal) 04/19/22 20:13 Giant Platelets 1+ H 04/19/22 20:13 PT 16.10 SECONDS (12.1-14.9) H 04/19/22 20:13 INR 1.26 (0.8-1.2) H 04/19/22 20:13 APTT 36.9 SECONDS (23.9-36.7) H 04/19/22 20:13 Fibrinogen 453 mg/dL (174-498) 04/19/22 20:13 D-Dimer 0.96 ug/mIFEU (0-0.59) H 04/19/22 20:13 Specimen Type Arterial 04/19/22 20:09 Sample Site Radial, right 04/19/22 20:09 ABG pH 7.47 (7.35-7.45) H 04/19/22 20:09 ABG pCO2 28.8 mmHg (35-45) L 04/19/22 20:09 ABG pO2 45.2 mmHg (80.0-100.0) L 04/19/22 20:09 ABG HCO3 21.0 mmol/L (22-26) L 04/19/22 20:09 ABG Base Excess -1.2 mmol/L (-2.0-2.0) 04/19/22 20:09 Abdoul Test Pos 04/19/22 20:09 Hematocrit 49.5 % (42-52) 04/19/22 20:09 O2 Delivery Device Nc 04/19/22 20:09 O2 Liters/Min 3.5 % 04/19/22 20:09 Brace End Mainspring Former ID Hensa 04/19/22 20:09 Sodium 133 mmol/L (136-145) L 04/19/22 20:13 Potassium 4.1 mmol/L (3.5-5.1) 04/19/22 20:13 Chloride 96 mmol/L (98-107) L 04/19/22 20:13 Carbon Dioxide 22 mmol/L (22-29) 04/19/22 20:13 Anion Gap 19.1 (5-19) H 04/19/22 20:13 BUN 23 mg/dL (8-23) 04/19/22 20:13 Creatinine 1.2 mg/dL (0.7-1.2) 04/19/22 20:13 GFR Calculation Not Reportable 04/19/22 20:13 Glucose 97 mg/dL (65-115) 04/19/22 20:13 Calculated Osmolality 280 mOsm/kg (285-295) L 04/19/22 20:13 Lactic Acid 3.2 mmol/L (0.5-2.2) H 04/19/22 20:13 Calcium 9.1 mg/dL (8.5-10.5) 04/19/22 20:13 Total Bilirubin 0.8 mg/dL (0.15-1.2) 04/19/22 20:13 AST 17 U/L (0-40) 04/19/22 20:13 ALT 13 U/L (0-41) 04/19/22 20:13 Alkaline Phosphatase 53 IU/L (40-130) 04/19/22 20:13 Troponin T Gen 5 ng/L 11 ng/L (0-15) 04/19/22 20:13 C-Reactive Protein 205.4 mg/L (0.0-4.9) H 04/19/22 20:13 NT-Pro-B Natriuret Pep 2331 pg/mL (0-450) H 04/19/22 20:13 Total Protein 6.1 g/dL (6.6-8.7) L 04/19/22 20:13 Albumin 3.9 g/dL (3.5-5.2) 04/19/22 20:13 Globulin 2.2 g/dL (1.3-4.6) 04/19/22 20:13 Procalcitonin 23.81 ng/mL (0-0.5) H 04/19/22 20:13 Procalcitonin 23.96 ng/mL (0-0.5) H 04/19/22 20:13 Imaging Data Other Imaging: Radiologist's impression: [address] [address] XRay Report Signed Patient: George Arriaga Unit #: [id number] : 1940 Age/Sex: 81 / M ADM Date: 04/19/22 Loc: ER Room/Bed: Attending Dr: Ordering Provider/Ordering MD: Vishal Wood MD Date of Service: 04/19/22 Procedure(s): XR chest 1V portable [id number] Accession Number(s): [id number] Report Number: [id number] PROCEDURE INFORMATION: Exam: XR Chest Exam date and time: 04/19/2022 8:18 PM Age: 81 years old Clinical indication: Dyspnea TECHNIQUE: Imaging protocol: Radiologic exam of the chest. Views: 1 view. COMPARISON: CR XR chest 1V portable [id number] 08/27/2020 5:18 AM FINDINGS: Lungs: There is infiltrate and consolidation left lower lobe worrisome for pneumonia. Visualized portions of the right lung are clear. Changes of pulmonary emphysema stable. There is calcified granuloma right upper lobe. Pleural spaces: Unremarkable. No pleural effusion. No pneumothorax. Heart/Mediastinum: Unremarkable. No cardiomegaly. Bones/joints: Unremarkable. XR/XR chest 1V portable [id number] IMPRESSION: 1. Left lower lobe pneumonia. 2. COPD. ? COMMENTS: Follow-up radiography recommended after treatment to document complete clearing. ? Dictated By: Vel Clemens Signed By: Vel Clemens Signed Date/Time: 04/19/22 2146 DD/ 17 Discharge Plan Discharge Patient Disposition: Admitted As Inpatient Clinical Impression: Acute respiratory failure with hypoxia, Dyspnea, COPD exacerbation, Pneumonia Condition: Stable Coding Level of Care Code ED Farm Crew Member for Chg Fwd Exam Comprehensive
[2022-04-19 20:41] LABS: Lactic Sepsis W/Reflex 3.2 mmol/L (0.5-2.2)
[2022-04-19 20:42] LABS: D Dimer 0.96 ug/mIFEU (0-0.59)
--- NOTE | 2022-04-19 20:44 | CTR_ITS ---
PROCEDURE INFORMATION: Exam: CTA Chest With Contrast Exam date and time: 04/19/2022 10:00 PM Age: 81 years old Clinical indication: Cough and shortness of breath; Additional info: Dyspnea, covid exposure TECHNIQUE: Imaging protocol: Computed tomographic angiography of the chest with contrast. 3D rendering (Not supervised by radiologist): MIP and/or 3D reconstructed images were created by the technologist. Radiation optimization: All CT scans at this facility use at least one of these dose optimization techniques: automated exposure control; mA and/or kV adjustment per patient size (includes targeted exams where dose is matched to clinical indication); or iterative reconstruction. Contrast material: OMNIPAQUE 350; Contrast volume: 95 ml; Contrast route: INTRAVENOUS (IV); COMPARISON: CT angio chest PE protcl [id number] 08/23/2020 8:07 PM RADIATION DOSE METRICS: Total DLP (mGy-cm): 206.92 FINDINGS: Pulmonary arteries: There is no evidence of filling defects within the pulmonary arterial circulation to suggest pulmonary embolism. Aorta: There is atherosclerotic calcification of the aortic arch and descending thoracic aorta. There is no thoracic aortic aneurysm or dissection. Lungs: The there is severe centrilobular emphysema in both lungs. There is some partial atelectasis in the posterior right lower lobe. There is infiltrate and consolidation in the left lower lobe and also in the posterior aspect of the lingula consistent with pneumonia. There is calcified granuloma right lower lobe. 5 mm sized noncalcified nodule in the left upper lobe image number 66 series 4 not significantly changed from 08/23/2020. No further follow-up necessary. Pleural spaces: There is small left pleural effusion. Heart: There is moderate atherosclerotic calcification of the coronary arteries. Lymph nodes: There are calcified hilar and mediastinal lymph nodes in keeping with old granulomatous disease. Bones/joints: Unremarkable. No acute fracture. Soft tissues: Unremarkable. CT/CT angio chest PE protcl [id number] IMPRESSION: 1. COPD 2. Left lower lobe pneumonia 3. No evidence of pulmonary embolism. COMMENTS: Follow-up imaging recommended to document complete resolution of the pneumonia following treatment.
[2022-04-19 20:49] LABS: Troponin T (5th) Once 11 ng/L (0-15)
[2022-04-19 20:59] LABS: NT Pro B Type Natriuretic Pept 2331 pg/mL (0-450); Procalcitonin 23.81 ng/mL (0-0.5)
[2022-04-19 21:10] LABS: Alanine Aminotransferase 13 U/L (0-41); Albumin Level 3.9 g/dL (3.5-5.2); Alkaline Phosphatase 53 IU/L (40-130); Aspartate Amino Transferase 17 U/L (0-40); Blood Urea Nitrogen 23 mg/dL (8-23); C Reactive Protein 205.4 mg/L (0.0-4.9); Calcium 9.1 mg/dL (8.5-10.5); Carbon Dioxide 22 mmol/L (22-29); Chloride 96 mmol/L (98-107); Globulin 2.2 g/dL (1.3-4.6); Glucose 97 mg/dL (65-115); Osmolality Calculated 280 mOsm/kg (285-295); Sodium 133 mmol/L (136-145); Total Bilirubin 0.8 mg/dL (0.15-1.2); Total Protein 6.1 g/dL (6.6-8.7)
[2022-04-19 21:12] LABS: Anion Gap 19.1 (5-19); Potassium 4.1 mmol/L (3.5-5.1)
[2022-04-19 21:13] LABS: Slide Review Slide Review Perform
[2022-04-19 21:14] LABS: Absolute Segmented Neutrophil 2.3 10/cmm (1.6-7.1); Band Neutrophils Absolute 1.6 10^3/cmm (0.0-1.2); Eosinophils 0 %; Lymphocytes 5 %; Monocytes Absolute 0.1 10^3/cmm (0.1-0.6); Segmented Neutrophils 33 %; Total Cells Counted 100 (0-100)
[2022-04-19 21:15] LABS: Giant Platelets 1+; Lymphocytes Absolute 0.7 10^3/cmm (1.2-3.4); Platelet Estimate Normal (Normal)
--- NOTE | 2022-04-19 21:24 | PM.HP ---
Providers/Chief Complaint Primary Care Provider: MADELINE Kwon Chief Complaint: Low Oxgen History of Present Illness George Arriaga is a 81 year old male with past medical history of COPD, essential tremor, nicotine dependence and history of pneumothorax, left lower lobe pneumonia in 2020, severe emphysema presented to the hospital today for complaint of shortness of breath, generalized weakness and fatigue. He is accompanied by his granddaughter who is an ICU nurse at another hospital. Patient states that he [place] and apparently fell on his right side. Granddaughter states that he was intoxicated. He does have history of alcohol abuse and drinks quite a bit daily. Unable to quantify exactly how much. He has had history of alcoholic hallucinations but has never had withdrawal seizures before. [place] he was in contact with a friend who later out turned out to be COVID-positive. Since Sunday patient has been having chills body aches and shortness of breath. His granddaughter noted that he was saturating 70% on home pulse ox today and therefore was brought to the emergency room. He is also been having intermittent visual hallucinations for the last 2 days. He also had 1 episode of loose stool since this morning. Denies abdominal pain, productive cough, nausea, vomiting. He does have rib pain on the side of the fall. Patient states he would like to be intubated if need be. Patient has been vaccinated for COVID. ED course: BP 93/58, respiratory rate 24, pulse 82, temperature 98.5. Initially on 6 L nasal cannula later put on high flow 40 L. Chest x-ray did show an infiltrate in the left lower lobe. Patient does have severe emphysema. ABG showed pH 7.4 with O2 40. COVID-19 positive. He was given DuoNeb and Solu-Medrol 125x1. WBC 7.1, bandemia, procalcitonin 23, lactic acid 3.2. He was also given Vanco and cefepime. Medications/Allergies Home Medications Medication Instructions Recorded Confirmed Last Taken Type Mucinex 400 mg PO DAILY PRN Cold Symptoms 08/23/20 09/30/20 Unknown History albuterol sulfate 90 mcg/actuation 2 puff inhalation 6XD PRN 08/23/20 09/30/20 08/23/20 History aerosol inhaler (Ventolin HFA) Shortness Of Breath citalopram 10 mg tablet (Celexa) 10 mg PO DAILY@0800 08/23/20 09/30/20 08/23/20 History ibuprofen 200 mg tablet 200 mg PO Q6H PRN Pain 08/23/20 09/30/20 08/23/20 History prednisone 5 mg tablet 5 mg PO DAILY@0800 08/23/20 09/30/20 08/23/20 History vit C,E,zinc,copper-ioqri2b 250 1 cap PO DAILY@0800 08/23/20 09/30/20 08/23/20 History mg-lutein 5 mg-zeaxanthin 1 mg capsule (Ocuvite Adult 50 Plus) ferrous gluconate 324 mg (37.5 mg 324 mg PO BIDWM #60 tabs 08/27/20 09/30/20 Unknown Rx iron) tablet ipratropium 20 mcg-albuterol 100 1 puff inhalation Q6H #4 grams 08/27/20 09/30/20 Unknown Rx mcg/actuation mist for inhalation fluticasone fur. 100 mcg-umeclid 1 inh inhalation DAILY #60 ea 09/30/20 09/30/20 Unknown Rx 62.5 mcg-vilant 25 mcg inhalat.powder (Trelegy Ellipta) nicotine 21 mg/24 hr daily 1 patch transdermal DAILY #28 ea 09/30/20 09/30/20 Unknown Rx transdermal patch Allergies Allergy/AdvReac Type Severity Reaction Status Date / Time No Known Allergies Allergy Verified 09/30/20 13:30 PFSH Acute PFSH: Medical History COPD (chronic obstructive pulmonary disease) Essential tremor Head trauma Lipoma, spermatic cord Malnourished Nicotine dependence Pneumothorax After accident, spontaneous pneumothorax, never required chest tube placement, left-sided Surgical History H/O inguinal hernia repair Family History Denies family history of Cancer Social History Smoking and tobacco status: current every day smoker cigarettes Packs smoked per day: 1 Years cigarettes smoked: 67 [ Other cigarette details: [id number]] Quit status (tobacco): considering quitting Second hand smoke exposure: Yes Smoking risk assessment/counseling performed?: Yes Alcohol intake: current Alcohol intake frequency: 0-2 Drinks per Day Caregiver/support person: Yes Lives independently: Yes Household members: none Housing: House Marital status: service: Yes Current occupational status: retired Pets and animals: Yes History of recent travel: No Current gender identity: Male Vitals/I&O/Wt Last Vital Signs Temp 98.5 F 04/19/22 19:55 Pulse 82 04/19/22 21:09 Resp 24 H 04/19/22 21:09 BP 93/58 04/19/22 21:09 Pulse Ox 95 04/19/22 21:09 O2 Del Method 04/19/22 21:09 O2 Flow Rate 45 04/19/22 21:05 FiO2 45 04/19/22 21:05 Weight last 48 hrs Weight 58.967 kg Physical Exam Narrative: EXAM NARRATIVE: General: No acute distress, AO x3, quite frail appearing elderly male with no acute distress seen laying in bed on high flow nasal cannula with granddaughter at bedside. No conversational dyspnea at this time no use of accessory muscles. Saturation 90%. HEENT: EOMI, NC, AT Chest: Clear to auscultation bilaterally with very mild rhonchi over all lung jones, coarse crackles present in left lower zone CVS: S1-S2 regular, no murmurs, no tachycardia, no gallops, no rubs Abdomen: Soft, nontender, no organomegaly, bowel sounds present Neuro: No focal deficits, no facial deformity, AO x3 Data : 04/19/22 20:13 04/19/22 20:13 A&P Assessment and plan (1) COPD exacerbation: Status: Acute (2) Smoker: Status: Acute (3) Acute respiratory failure with hypoxia: Status: Acute (4) Pneumonia: Status: Acute Qualifiers: Laterality: left Lung location: lower lobe of lung Pneumonia type: due to unspecified organism Qualified Code(s): J18.9 - Pneumonia, unspecified organism (5) Dyspnea: Status: Acute (6) Alcohol abuse: Status: Acute (7) Alcohol-induced hallucinations: Status: Acute Plan #Sepsis secondary to left lower lobe and lingula pneumonia #COVID-19 positive #Acute hypoxic respiratory failure, currently on high flow #Severe centrilobular emphysema #Alcohol abuse #Alcoholic hallucinations #Chronic diastolic congestive heart failure -Patient's respiratory status is most likely secondary to bacterial pneumonia rather than COVID. Patient has had a similar admission in the past where he required high flow. At that time as well he had a bacterial pneumonia and was negative for COVID at that time. Unsure how much part COVID is playing in his condition at this time. We will cover him for COVID and bacterial pneumonia. ? CRP 205,BNP 2331, procalcitonin 24, bandemia 23% D-dimer 1.96. Check bacterial antigens for strep and Legionella, check MRSA nares swab -Start dexamethasone 6 IV daily x10 days ? Remdesivir x5 days, zinc, vitamin C, vitamin D ? DuoNeb every 6 hours as needed, Pulmicort inhalation twice daily ? Continue heated high flow. ? Keep oxygen saturation between 88 to 92% ? Incentive spirometry, flutter valve - Lactic acid 3.7. He did get 500 cc normal saline bolus in ER. Continue normal saline at 50 cc/h. There is no evidence of ARDS on CT for now. Patient is clinically dehydrated appearing. -Continue on vancomycin and Zosyn ? Placed on CIWA protocol -Consult pulmonology. Full code DVT prophylaxis: Heparin 5000 twice daily Attestations Medical Necessity Statement*: Will cross greater than 2 midnight stay for management of pneumonia and alcohol abuse. Critical Care Time: The high probability of a clinically significant, sudden or life threatening deterioration of the patient's [] system(s) required my full and direct attention, intervention and personal management. The critical care time is as shown. 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
[2022-04-19 21:59] LABS: Procalcitonin 23.96 ng/mL (0-0.5)
[2022-04-19 22:04] LABS: Reflex Lactate Order REFLEX LACTIC ORDERD
[2022-04-19] MEDS: iohexol 350 mg/mL 100 mL Btl IV (22:18)
[2022-04-19 22:30] LABS: Coronavirus 229E,HKU1,NL63,OC4 Not Detected (NOT DETECT); SARS-COV-2 Detected (NOT DETECT)
[2022-04-19] MEDS: cefepime 1,000 MG in sodium chloride 0.9% (plus) 50 ML 100 MG IV (22:36)
[2022-04-19] MEDS: azithromycin 250 mg Tablet 500 MG PO (22:40)
[2022-04-19] MEDS: sodium chloride 0.9% 500 ML IV (22:40)
[2022-04-19] MEDS: vancomycin 1,000 MG in sodium chloride 0.9% 250 ML 250 MG IV (22:50)
[2022-04-19 23:03] LABS: Adenovirus Not Detected (NOT DETECT); Chlamydia Pneumoniae Not Detected (NOT DETECT); Human Metapneumovirus Not Detected (NOT DETECT); Human Rhinovirus/Enterovirus Not Detected (NOT DETECT); Influenza A Not Detected (NOT DETECT); Influenza A H1 Not Detected (NOT DETECT); Influenza A H1-2009 Not Detected (NOT DETECT); Influenza A H3 Not Detected (NOT DETECT); Influenza B Not Detected (NOT DETECT); Mycoplasma Pneumoniae Not Detected (NOT DETECT); Parainfluenza Virus Type 1 Not Detected (NOT DETECT); Parainfluenza Virus Type 2 Not Detected (NOT DETECT); Parainfluenza Virus Type 3 Not Detected (NOT DETECT); Parainfluenza Virus Type 4 Not Detected (NOT DETECT); Respiratory Syncytial Virus A Not Detected (NOT DETECT); Respiratory Syncytial Virus B Not Detected (NOT DETECT)
--- NOTE | 2022-04-19 23:04 | PC.NURSE ---
Pt sitting up in bed at 90 degrees. No increased work of breathing noted, however SPO2 with a good waveform is reading 86%. Respiratory notified. Pt currently on high flow o2
[2022-04-19] MEDS: LORazepam 1 mg Tablet PO (23:11)
[2022-04-19 23:16] LABS: Lactic Acid level (Lactate) 3.7 mmol/L (0.5-2.2)
[2022-04-19 23:35] LABS: Creatine Phosphokinase 45 U/L (39-308)
--- NOTE | 2022-04-19 23:54 | PC.NURSE ---
Lashonda is Janette Joshi- [phone]. Kayla Corina- Daughter [phone]
[2022-04-20] VITALS (24 sets, daily range): BP systolic 88–99; BP diastolic 52–62; PULSE 68–97; RESP 19–24; TEMP 36.5–37.1; O2SAT 91–100; BMI 18.8
[2022-04-20] MEDS: remdesivir 200 MG in sodium chloride 0.9% (100 ml) 60 ML 100 MG IV
--- NOTE | 2022-04-20 00:44 | PC.PHAR ---
Vancomycin is dosed at 1gm IVPB every 24 hours to produce a predicted trough level of 19.72 (population based pharmacokinetic analysis). A trough level has been ordered from the lab to be obtained before the fourth dose to confirm and adjust if needed.
--- NOTE | 2022-04-20 01:06 | PC.PHAR ---
Vancomycin is dosed at 1ghm IVPB every 24 hours to produce a predicted trough level of 19.72 (population based pharmacokinetic analysis) a trough level has been ordered from the lab to be obtained before the fourth dose to confirm and adjust if needed. The Zosyn is dosed at 3.375gm IVPB every 8 hours on the basis of the creatinine clearance of 43.5.
[2022-04-20] MEDS: piperacillin-tazobactam 3.375 GM in sodium chloride 0.9% (plus) 50 ML IV ×3 (01:19→17:30)
[2022-04-20] MEDS: heparin 5,000 unit/mL INJ 1 mL 5000 UNIT SUBCUT ×2 (01:20→13:14)
[2022-04-20 02:16] LABS: Basophils % 0.4 %; Hematocrit 43.8 % (42.0-52.0); Hemoglobin 14.9 g/dL (11.7-16.6); Lymphocytes # 0.5 10^3/uL (0.8-4.8); Mean Corpuscular Hemoglobin 34.6 pg (28.0-34.0); Mean Corpuscular Volume 101.6 fl (80-94); Monocytes # 0.3 10^3/uL (0.2-0.9); Monocytes % 3.4 %; Neutrophils # 6.88 10^3/uL (1.8-7.7); Neutrophils % 89.9 %; Nucleated Red Blood Cells % 0 %; Platelet Count 130 10^3/cmm (130-400); Red Blood Count 4.31 10^6/uL (4.1-5.3); Red Cell Distribution Width 13.8 % (12.1-15.1); White Blood Count 7.7 10^3/uL (4.0-10.0)
[2022-04-20 02:39] LABS: Alanine Aminotransferase 12 U/L (0-41); Albumin Level 3.2 g/dL (3.5-5.2); Alkaline Phosphatase 48 IU/L (40-130); Anion Gap 17.4 (5-19); Aspartate Amino Transferase 14 U/L (0-40); Blood Urea Nitrogen 23 mg/dL (8-23); Calcium 8.9 mg/dL (8.5-10.5); Carbon Dioxide 19 mmol/L (22-29); Chloride 103 mmol/L (98-107); Globulin 2.1 g/dL (1.3-4.6); Glucose 128 mg/dL (65-115); Magnesium 1.3 mg/dL (1.7-2.3); Osmolality Calculated 287 mOsm/kg (285-295); Potassium 3.4 mmol/L (3.5-5.1); Sodium 136 mmol/L (136-145); Total Bilirubin 0.6 mg/dL (0.15-1.2); Total Protein 5.3 g/dL (6.6-8.7)
[2022-04-20 02:57] LABS: Slide Review Slide Review Perform
[2022-04-20 03:08] LABS: Ferritin 322 ng/mL (30-400)
[2022-04-20 03:16] LABS: Lactate Dehydrogenase 175 U/L (135-225)
[2022-04-20 07:14] LABS: Lactate (Lactic Acid level) 2.8 mmol/L (0.5-2.2)
[2022-04-20 07:52] LABS: Glucose Point of Care 126 mg/dL (70-110)
[2022-04-20] MEDS: ipratropium-albuterol 3 mL Neb INHALATION ×4 (08:09→19:53)
[2022-04-20] MEDS: budesonide 0.5 mg/2 mL Neb INHALATION ×2 (08:09→19:53)
[2022-04-20] MEDS: magnesium sulfate premix 4 GM/100 ML PREMIX IV (08:10)
[2022-04-20] MEDS: ascorbic acid 500 mg Tablet PO (08:11)
[2022-04-20] MEDS: dexamethasone 10 mg/mL INJ 6 MG IVP (08:11)
[2022-04-20] MEDS: cholecalciferol (vitamin D3) 1,000 unit Tablet 2000 UNIT PO (08:11)
[2022-04-20] MEDS: zinc gluconate 50 mg Tablet PO (08:13)
[2022-04-20] MEDS: multivitamin therapeutic Tablet 1 TAB PO (08:13)
[2022-04-20] MEDS: thiamine 100 mg Tablet PO (08:13)
[2022-04-20] MEDS: folic acid 1 mg Tablet PO (08:13)
--- NOTE | 2022-04-20 09:34 | PC.NURSE ---
patient took HHF off and attempted to get out of bed 3 times since start of shift. Dr. English at bedside, gave v.o. for precedex for agitation
[2022-04-20] MEDS: dexmedeTOMIDine 0.9 % NaCL 400 MCG/100 ML PREMIX IV (09:48)
--- NOTE | 2022-04-20 10:52 | PM.PN ---
Subjective Subjective: This morning she has been a bit restless, getting up from bed several times. He tells me he is hurting in the left side of his chest after had fallen down at home. Sharp pain with inspiration. He is coughing. Vitals/I&O/Wt Last Vital Signs Temp 98.1 F 04/19/22 23:57 Pulse 79 04/20/22 08:28 Resp 22 H 04/20/22 08:09 BP 103/61 04/19/22 23:57 Pulse Ox 96 04/20/22 08:09 O2 Del Method 04/20/22 08:09 O2 Flow Rate 40 04/20/22 08:09 FiO2 52 04/20/22 08:09 04/19/22 04/20/22 04/20/22 22:59 06:59 14:59 Intake Total 850 / 850 Output Total 650 / 650 Balance 200 / 200 Weight last 48 hrs Weight 56.064 kg Weight 58.967 kg Physical Exam Const: COMMON NORMALS: alert GENERAL APPEARANCE: cooperative ORIENTATION/CONSCIOUSNESS: Yes awake HENMT: COMMON NORMALS: oropharynx normal Neck/C-Spine: COMMON NORMALS: no JVD Chest: OTHER: Tender L lower chest Resp: COMMON NORMALS: normal respiratory effort and clear to auscultation bilaterally AUSCULTATION: clear to auscultation bilaterally Cardio: COMMON NORMALS: no JVD, regular rhythm, S1 normal heart sound present, S2 normal heart sound present and No murmurs present (Cardio) RHYTHM: regular rhythm HEART SOUNDS: S1 normal heart sound present and S2 normal heart sound present GI: COMMON NORMALS: Normal to inspection, nondistended, normoactive bowel sounds present, Soft to palpation and non-tender PALPATION: Yes Soft to palpation Extremity: COMMON NORMALS: no joint enlargement and no pedal edema Neuro: COMMON NORMALS: moves all extremities SENSORIUM/ORIENTATION: Yes alert Skin: COMMON NORMALS: no rashes or lesions noted GENERAL SKIN EXAM: no rashes or lesions noted Urinary Catheter Management: Juarez: Cath Placed During This Visit: yes Reason for Continuing Indwelling Catheter: Accurate Measurement of Urinary Output in Critically Ill Patients Urinary Catheter Date of Insertion: 04/20/22 Urinary Catheter Time of Insertion: 05:18 Data : 04/20/22 01:48 04/20/22 01:48 Micro: Microbiology 04/20/22 05:10 Bacterial Antigens - Final Urine,Clean Catch 04/20/22 05:10 Legionella Urinary Antigen - Final Urine Catheterized 04/20/22 01:48 Blood Culture - Preliminary Blood SPECIMEN COLLECTED 04/20/22 01:55 Blood Culture - Preliminary Blood SPECIMEN COLLECTED A&P Assessment and plan (1) Acute respiratory failure with hypoxia: Left lower lobe pneumonia. Possible aspiration, as did not do well with medications this morning. Will obtain also speech therapy evaluation. N.p.o. for now until assessed. Continue empiric antibiotic coverage. Continue oxygen support. Wean down as tolerating. Follow-up sputum culture, MRSA PCR. Urine bacterial antigens. Likely may have some rib fractures as well in the left chest and is sharp pain after fall. Pain control with lidocaine patch, Tylenol. Incentive spirometer. Status: Acute (2) Pneumonia: As above. Status: Acute Qualifiers: Laterality: left Lung location: lower lobe of lung Pneumonia type: due to unspecified organism Qualified Code(s): J18.9 - Pneumonia, unspecified organism (3) COVID-19: Continue remdesivir for now, although thought to be less likely contributing to his current picture. Decadron was stopped. Follow-up D-dimer. Continue VTE prophylaxis. Antitussives. Status: Acute (4) COPD exacerbation: Status: Acute (5) Smoker: Encourage cessation Status: Acute (6) Dyspnea: Status: Acute (7) Alcohol abuse: Alcohol withdrawal. Continue benzodiazepine per [facility] protocol. Vitamins. Once he is doing little better discussed with case management to offer options for rehabilitation. Status: Acute (8) Alcohol-induced hallucinations: Status: Acute (9) Fall: Left side chest tenderness, possible rib fractures. Reports after a fall at home. Pain control with lidocaine patch, acetaminophen. Sent to spirometer. Fall precautions. Status: Acute Plan #Sepsis secondary to left lower lobe and lingula pneumonia #COVID-19 positive #Acute hypoxic respiratory failure, currently on high flow #Severe centrilobular emphysema #Alcohol abuse #Alcoholic hallucinations #Chronic diastolic congestive heart failure Full code DVT prophylaxis: Heparin 5000 twice daily Attestations Medical Necessity Statement*: Continue admission for assessment of management of acute hypoxic respiratory failure, community-acquired pneumonia, COVID-19, alcohol withdrawal. Critical Care Time: The high probability of a clinically significant, sudden or life threatening deterioration of the patient's respiratory system(s) required my full and direct attention, intervention and personal management. The critical care time is as shown. This time is in addition to time spent performing any reported procedures but includes the following: x Data and vital sign review and interpretation x Patient assessment, examination and intervention x Documentation x Medication orders and management Critical Care Time (min): 40 Coding Level of Care Code Acute Magnetic Resonance Imaging Coordinator for [facility] Fwd Diagnoses Acute respiratory failure with hypoxia J96.01 Pneumonia J18.9 Laterality: left Lung location: lower lobe of lung Pneumonia type: due to unspecified organism COVID-19 U07.1 COPD exacerbation J44.1 Smoker F17.200 Dyspnea R06.00 Alcohol abuse F10.10 Alcohol-induced hallucinations F10.951 Fall W19.XXXA
[2022-04-20 11:40] LABS: Glucose Point of Care 127 mg/dL (70-110)
--- NOTE | 2022-04-20 12:28 | PM.CONSULT ---
Providers/Reason For Consult Consulting Physician/Specialty*: Pulmonary and critical care medicine Reason for Consult*: Acute hypoxic respiratory failure, COVID-19, pneumonia, COPD Requesting Physician: Dr. Phillip Attending Physician: Oswald Lake Primary Care Provider: MADELINE Kwon History of Present Illness History of Present Illness George Arriaga is a 81 year old male with an extensive history of smoking and alcohol abuse. The patient carries a diagnosis of COPD. His pulmonary function test from October 2020 was consistent with mild airflow obstruction with severely reduced DLCO. His previous CT scan of the chest have revealed profound centrilobular emphysema which would explain the severely reduced DLCO. In August 2020, the patient had suffered from an episode of left lower lobe pneumonia. Following that, he was evaluated by my colleague in the office however he never followed up with him. This time the patient presented to the hospital with worsening shortness of breath, generalized weakness and fatigue. It appears that his granddaughter is in ICU nurse in a different hospital. According to chart review, the patient went to a rodeo got intoxicated and was also exposed to someone who had suffered from COVID-19. At home, he has been complaining of fever, chills, body ache and shortness of breath. Pulse oximetry at home revealed an oxygen saturation of 70% and the patient was brought to the hospital. In the emergency department, the patient was borderline hypotensive, tachypneic and required high flow nasal cannula to maintain optimal oxygen saturation. He tested positive for COVID-19. The patient had a CT angiogram of the chest yesterday which revealed left lower lobe infiltrate on the background of emphysema. The patient also has mild infiltrate in the right lower lobe. There is infiltrate in the left upper lobe as well. There is mild irregularity in the hepatic surface. Initial blood work revealed no leukocytosis, macrocytosis consistent with alcohol abuse, mildly elevated lactic acid level, elevated procalcitonin, CRP. Today, the patient was restless, mental status not completely normal and he had significant difficulty swallowing. Currently the patient is on Precedex for suspicion of alcohol withdrawal. I was able to wake him up and he answered very minimal questions. Review of Systems Narrative: Unable to obtain reliable review of systems. Medications/Allergies Home Medications Medication Instructions Recorded Confirmed Last Taken Type albuterol sulfate 90 mcg/actuation 2 puff inhalation 6XD PRN 08/23/20 04/20/22 08/23/20 History aerosol inhaler (Ventolin HFA) Shortness Of Breath citalopram 10 mg tablet (Celexa) 20 mg PO DAILY@0800 08/23/20 04/20/22 08/23/20 History prednisone 5 mg tablet 5 mg PO DAILY@0800 08/23/20 04/20/22 08/23/20 History ferrous gluconate 324 mg (37.5 mg 324 mg PO BIDWM #60 tabs 08/27/20 04/20/22 Unknown Rx iron) tablet ipratropium 20 mcg-albuterol 100 1 puff inhalation Q6H #4 grams 08/27/20 04/20/22 Unknown Rx mcg/actuation mist for inhalation fluticasone fur. 100 mcg-umeclid 1 inh inhalation DAILY #60 ea 09/30/20 04/20/22 Unknown Rx 62.5 mcg-vilant 25 mcg inhalat.powder (Trelegy Ellipta) budesonide 160 mcg-glycopyr 9 2 inh inhalation BID 04/20/22 04/20/22 Unknown History mcg-formot 4.8 mcg/actuation HFA inhaler (Breztri Aerosphere) budesonide-formoterol HFA 160 2 puff inhalation BID 04/20/22 04/20/22 Unknown History mcg-4.5 mcg/actuation aerosol inhaler (Symbicort) cetirizine 10 mg tablet (Zyrtec) 10 mg PO DAILY PRN Allergy Symptoms 04/20/22 04/20/22 Unknown History cyanocobalamin (vitamin B-12) 500 500 mcg PO DAILY 04/20/22 04/20/22 Unknown History mcg tablet (Vitamin B-12) fluticasone propionate 50 1 spray intranasal DAILY 04/20/22 04/20/22 Unknown History mcg/actuation nasal spray,suspension guaifenesin 600 mg tablet, 600 mg PO BID 04/20/22 04/20/22 Unknown History extended release 12 hr (Mucinex) ibuprofen 200 mg tablet (Advil) 200 mg PO Q6H PRN Pain 04/20/22 04/20/22 Unknown History omeprazole 20 mg capsule,delayed 20 mg PO DAILY 04/20/22 04/20/22 Unknown History release thiamine mononitrate (vit B1) 100 100 mg PO DAILY 04/20/22 04/20/22 Unknown History mg tablet vit C,E,zinc,copper-mazev9d 250 1 cap PO BID 04/20/22 04/20/22 Unknown History mg-lutein 5 mg-zeaxanthin 1 mg capsule Allergies Allergy/AdvReac Type Severity Reaction Status Date / Time No Known Allergies Allergy Verified 09/30/20 13:30 Current Medications Generic Name Dose Route Start Last Admin Trade Name Laz PRN Reason Stop Dose Admin Albuterol/Ipratropium 3 ml 04/20/22 08:00 04/20/22 11:26 Ipratropium-Albuterol 3 Ml Neb INHALATION 3 ml QID.RESPIRATORY CAMILA Administration Ascorbic Acid 500 mg 04/20/22 09:00 04/20/22 08:11 Ascorbic Acid 500 Mg Tablet PO 500 mg DAILY CAMILA Administration Budesonide 0.5 mg 04/20/22 09:00 04/20/22 08:09 Budesonide 0.5 Mg/2 Ml Neb INHALATION 0.5 mg BID CAMILA Administration Folic Acid 1 mg 04/20/22 09:00 04/20/22 08:13 Folic Acid 1 Mg Tablet PO 1 mg DAILY CAMILA Administration Heparin Sodium (Porcine) 5,000 unit 04/20/22 01:00 04/20/22 01:20 Heparin 5,000 Unit/Ml Inj 1 Ml SUBCUT 5,000 unit Q12H CAMILA Administration Piperacillin Sod/Tazobactam 50 mls @ 12.5 mls/hr 04/20/22 00:26 04/20/22 08:11 Sod 3.375 gm/ Sodium Chloride IV 12.5 mls/hr Q8H CAMILA Administration Protocol As Directed dexmedeTOMIDine 0.9 % NaCL 400 mcg in 100 mls @ 0 mls/hr 04/20/22 09:45 04/20/22 09:48 Precedex IV 0.2 mcg/kg/hr .Q0M CAMILA 2.8 mls/hr Administration Protocol Per Protocol Insulin Human Lispro 0 unit 04/20/22 08:00 04/20/22 11:39 Insulin Lispro 100 Unit/1 Ml SUBCUT Not Given WM&BEDTIME CAMILA Protocol Multivitamins Therapeutic 1 tab 04/20/22 09:00 04/20/22 08:13 Multivitamin Therapeutic Tablet PO 1 tab DAILY CAMILA Administration Thiamine Mononitrate 100 mg 04/20/22 09:00 04/20/22 08:13 Thiamine 100 Mg Tablet PO 100 mg DAILY CAMILA Administration Vitamin D 2,000 unit 04/20/22 09:00 04/20/22 08:11 Cholecalciferol (Vitamin D3) 1,000 Unit Tablet PO 2,000 unit DAILY CAMILA Administration Zinc Gluconate 50 mg 04/20/22 09:00 04/20/22 08:13 Zinc Gluconate 50 Mg Tablet PO 50 mg DAILY CAMILA Administration PFSH Acute PFSH: Medical History COPD (chronic obstructive pulmonary disease) Essential tremor Head trauma Lipoma, spermatic cord Malnourished Nicotine dependence Pneumothorax After accident, spontaneous pneumothorax, never required chest tube placement, left-sided Surgical History H/O inguinal hernia repair Family History Denies family history of Cancer Social History Smoking and tobacco status: current every day smoker cigarettes Packs smoked per day: 1 Years cigarettes smoked: 67 [ Other cigarette details: [id number]] Quit status (tobacco): considering quitting Second hand smoke exposure: Yes Smoking risk assessment/counseling performed?: Yes Alcohol intake: current Alcohol intake frequency: 0-2 Drinks per Day Caregiver/support person: Yes Lives independently: Yes Household members: none Housing: House Marital status: service: Yes Current occupational status: retired Pets and animals: Yes History of recent travel: No Current gender identity: Male Vitals/I&O/Wt Last Vital Signs Temp 98.1 F 04/19/22 23:57 Pulse 76 04/20/22 11:27 Resp 22 H 04/20/22 11:27 BP 103/61 04/19/22 23:57 Pulse Ox 91 04/20/22 11:27 O2 Del Method 04/20/22 11:26 O2 Flow Rate 40 04/20/22 11:27 FiO2 50 04/20/22 11:27 04/19/22 04/20/22 04/20/22 22:59 06:59 14:59 Intake Total 850 / 850 Output Total 650 / 650 Balance 200 / 200 Weight last 48 hrs Weight 123 lb 9.6 oz Weight 130 lb Physical Exam Narrative: General: Patient is sleepy, arousable, able to answer simple questions Neck: No JVD Respiratory: Auscultation: Significantly reduced breath sound bilaterally, minimal crackles at the left lower lung base Cardiovascular: Regular rate and rhythm, S1-S2 present, distant heart sound, no murmur, no peripheral edema. Abdomen: Soft, nontender, nondistended, positive bowel sound Musculoskeletal: No obvious joint deformity Skin: No rash Neuro: Somewhat waxing and waning mental status, no focal neurologic deficit Urinary Catheter Management: Juarez: Cath Placed During This Visit: yes Reason for Continuing Indwelling Catheter: Accurate Measurement of Urinary Output in Critically Ill Patients Urinary Catheter Date of Insertion: 04/20/22 Urinary Catheter Time of Insertion: 05:18 Data : 04/20/22 01:48 04/20/22 01:48 Micro: Microbiology 04/20/22 05:10 Bacterial Antigens - Final Urine,Clean Catch 04/20/22 05:10 Legionella Urinary Antigen - Final Urine Catheterized 04/20/22 01:48 Blood Culture - Preliminary Blood SPECIMEN COLLECTED 04/20/22 01:55 Blood Culture - Preliminary Blood SPECIMEN COLLECTED Other data: I have reviewed the patient's laboratory, microbiologic and rheologic data. Please see the HPI A&P Assessment and plan (1) Pneumonia: This is an 81-year-old gentleman with multilobar pneumonia likely secondary to aspiration. His mental status is altered. He has history of alcohol abuse. He was also hospitalized with a left lower lobe pneumonia in 2019. The patient had received broad-spectrum antibiotic. Will get a nasal MRSA PCR. We will continue with Zosyn for the time being. We can discontinue the vancomycin. All microbiologic work-up has been negative so far. Status: Acute Qualifiers: Laterality: left Lung location: lower lobe of lung Pneumonia type: due to unspecified organism Qualified Code(s): J18.9 - Pneumonia, unspecified organism (2) Acute and chronic respiratory failure with hypoxia: With acute on chronic hypoxic respiratory failure is secondary to multilobar pneumonia in addition to significant centrilobular emphysema. The patient has a baseline DLCO of 30%. It is not unusual that he is requiring a significant amount of oxygen. The radiologic appearance of the infiltrate is not consistent with COVID-19. Status: Acute (3) COVID-19: The patient is positive for COVID-19 however I do not think this is contributing to the acute hypoxic respiratory failure. For the time being, the patient will continue with remdesivir. We will hold off on IV steroid. Status: Acute (4) Alcohol abuse: The patient has history of significant alcohol abuse. There is some radiologic evidence of liver cirrhosis. However he has never been evaluated for that. We can consider getting a FibroScan in the future. The altered mental status is likely in the setting of the pneumonia as well as alcohol abuse. The patient is currently on small dose of Precedex. Given the shortage of benzodiazepine, if necessary, the patient will benefit from phenobarbital. Please do not use Versed. The patient was likely stop breathing requiring intubation. Status: Acute (5) COPD (chronic obstructive pulmonary disease): For now there is no evidence of COPD exacerbation. Will continue with nebulized treatment. Status: Acute Qualifiers: COPD type: emphysema Emphysema type: centrilobular Qualified Code(s): J43.2 - Centrilobular emphysema Coding Level of Care Code Acute Loss Prevention And Safety Manager for [facility] Diagnoses Pneumonia J18.9 Laterality: left Lung location: lower lobe of lung Pneumonia type: due to unspecified organism Acute and chronic respiratory failure with hypoxia J96.21 COVID-19 U07.1 Alcohol abuse F10.10 COPD (chronic obstructive pulmonary disease) J43.2 COPD type: emphysema Emphysema type: centrilobular
[2022-04-20 16:58] LABS: Glucose Point of Care 142 mg/dL (70-110)
[2022-04-20] MEDS: guaiFENesin 600 mg Tablet PO (17:30)
[2022-04-20] MEDS: insulin lispro 100 unit/1 mL SUBCUT ×2 (17:45→21:16)
[2022-04-20] MEDS: remdesivir 100 MG in sodium chloride 0.9% (100 ml) 80 ML IV (18:25)
[2022-04-20 21:11] LABS: Glucose Point of Care 187 mg/dL (70-110)
[2022-04-21] VITALS (96 sets, daily range): BP systolic 78–103; BP diastolic 49–69; PULSE 57–78; RESP 15–30; TEMP 35.7–36.6; O2SAT 78–100
[2022-04-21] MEDS: piperacillin-tazobactam 3.375 GM in sodium chloride 0.9% (plus) 50 ML IV ×3 (00:47→17:13)
[2022-04-21] MEDS: heparin 5,000 unit/mL INJ 1 mL 5000 UNIT SUBCUT ×2 (00:48→12:04)
[2022-04-21 03:35] LABS: Basophils # 0.1 10^3/uL (0.0-0.1); Basophils % 0.7 %; Hematocrit 40.8 % (42.0-52.0); Hemoglobin 13.9 g/dL (11.7-16.6); Lymphocytes # 0.7 10^3/uL (0.8-4.8); Lymphocytes % 5.6 %; Mean Corpuscular HGB Conc 34.1 g/dL (30.0-36.0); Mean Corpuscular Hemoglobin 34.6 pg (28.0-34.0); Mean Corpuscular Volume 101.5 fl (80-94); Mean Platelet Volume 11.6 fL (7.4-10.4); Monocytes # 0.6 10^3/uL (0.2-0.9); Monocytes % 4.7 %; Neutrophils # 10.72 10^3/uL (1.8-7.7); Neutrophils % 88.4 %; Nucleated Red Blood Cells % 0 %; Platelet Count 128 10^3/cmm (130-400); Red Blood Count 4.02 10^6/uL (4.1-5.3); Red Cell Distribution Width 13.7 % (12.1-15.1); White Blood Count 12.1 10^3/uL (4.0-10.0)
[2022-04-21 03:46] LABS: D Dimer 1.72 ug/mIFEU (0-0.59)
[2022-04-21 03:59] LABS: Alanine Aminotransferase 10 U/L (0-41); Albumin Level 2.6 g/dL (3.5-5.2); Alkaline Phosphatase 49 IU/L (40-130); Anion Gap 13.4 (5-19); Aspartate Amino Transferase 13 U/L (0-40); Blood Urea Nitrogen 25 mg/dL (8-23); Calcium 8.8 mg/dL (8.5-10.5); Carbon Dioxide 22 mmol/L (22-29); Chloride 103 mmol/L (98-107); Globulin 2.5 g/dL (1.3-4.6); Glucose 101 mg/dL (65-115); Osmolality Calculated 285 mOsm/kg (285-295); Potassium 3.4 mmol/L (3.5-5.1); Sodium 135 mmol/L (136-145); Total Bilirubin 0.4 mg/dL (0.15-1.2); Total Protein 5.1 g/dL (6.6-8.7)
[2022-04-21 04:04] LABS: Slide Review Slide Review Perform
[2022-04-21] MEDS: ipratropium-albuterol 3 mL Neb INHALATION ×4 (07:47→20:36)
[2022-04-21] MEDS: guaiFENesin 600 mg Tablet PO ×2 (08:51→17:13)
[2022-04-21] MEDS: cholecalciferol (vitamin D3) 1,000 unit Tablet 2000 UNIT PO (08:51)
[2022-04-21] MEDS: multivitamin therapeutic Tablet 1 TAB PO (08:51)
[2022-04-21] MEDS: zinc gluconate 50 mg Tablet PO (08:52)
[2022-04-21] MEDS: ascorbic acid 500 mg Tablet PO (08:52)
[2022-04-21] MEDS: benzonatate 100 mg Capsule PO ×3 (08:52→20:59)
[2022-04-21] MEDS: folic acid 1 mg Tablet PO (08:52)
[2022-04-21] MEDS: thiamine 100 mg Tablet PO (08:52)
[2022-04-21] MEDS: lidocaine 5% Patch 1 PATCH TOPICAL ×2 (08:55→20:59)
[2022-04-21] MEDS: budesonide 0.5 mg/2 mL Neb INHALATION ×2 (09:20→20:36)
[2022-04-21 09:57] LABS: Glucose Point of Care 115 mg/dL (70-110)
[2022-04-21 11:09] LABS: Glucose Point of Care 248 mg/dL (70-110)
[2022-04-21] MEDS: insulin lispro 100 unit/1 mL SUBCUT (12:04)
--- NOTE | 2022-04-21 12:21 | PM.PN ---
Subjective Subjective: He feels slightly better today. Breathing a little bit better. No more diarrhea. Vitals/I&O/Wt Last Vital Signs Temp 96.7 F L 04/21/22 08:30 Pulse 60 04/21/22 11:30 Resp 20 H 04/21/22 11:30 BP 88/59 04/21/22 11:30 Pulse Ox 95 04/21/22 11:27 O2 Del Method 04/21/22 11:26 O2 Flow Rate 30 04/21/22 11:27 FiO2 46 04/21/22 11:27 04/20/22 04/21/22 04/21/22 22:59 06:59 14:59 Intake Total 75.06 / 225.06 390 / 615.06 240 / 240 Output Total 600 / 600 200 / 800 Balance -524.94 / -374.94 190 / -184.94 240 / 240 Weight last 48 hrs Weight 56.472 kg Weight 56.064 kg Weight 58.967 kg Physical Exam Narrative: Up in chair Const: COMMON NORMALS: alert GENERAL APPEARANCE: cooperative ORIENTATION/CONSCIOUSNESS: Yes awake HENMT: COMMON NORMALS: oropharynx normal Neck/C-Spine: COMMON NORMALS: no JVD Chest: OTHER: Tender L lower chest Resp: COMMON NORMALS: normal respiratory effort and clear to auscultation bilaterally AUSCULTATION: clear to auscultation bilaterally Cardio: COMMON NORMALS: no JVD, regular rhythm, S1 normal heart sound present, S2 normal heart sound present and No murmurs present (Cardio) RHYTHM: regular rhythm HEART SOUNDS: S1 normal heart sound present and S2 normal heart sound present GI: COMMON NORMALS: Normal to inspection, nondistended, normoactive bowel sounds present, Soft to palpation and non-tender PALPATION: Yes Soft to palpation Extremity: COMMON NORMALS: no joint enlargement and no pedal edema Neuro: COMMON NORMALS: moves all extremities SENSORIUM/ORIENTATION: Yes alert Skin: COMMON NORMALS: no rashes or lesions noted GENERAL SKIN EXAM: no rashes or lesions noted Urinary Catheter Management: Juarez: Cath Placed During This Visit: yes Reason for Continuing Indwelling Catheter: Accurate Measurement of Urinary Output in Critically Ill Patients Urinary Catheter Date of Insertion: 04/20/22 Urinary Catheter Time of Insertion: 05:18 Data : 04/21/22 03:16 04/21/22 03:16 Micro: Microbiology 04/19/22 23:12 Gram Stain - Final Sputum - Expectorated Sputum Sputum Culture - Preliminary Gram Negative Rods 04/21/22 00:35 Bacterial Antigens - Final Urine,Voided 04/20/22 01:55 Blood Culture - Preliminary Blood NEGATIVE TO DATE 04/20/22 01:48 Blood Culture - Preliminary Blood NEGATIVE TO DATE 04/21/22 00:35 Legionella Urinary Antigen - Final Urine Catheterized 04/20/22 10:00 MRSA Culture - Final Nose 04/19/22 23:02 MRSA Culture - Final Nose A&P Assessment and plan (1) Acute respiratory failure with hypoxia: Continue empiric antibiotic coverage. Continue oxygen support, wean down as tolerating. Limited baseline pulmonary function, DLCO 30%. Aspiration precautions. Pur?ed diet, thin liquids noted on speech therapy assessment. Does not have his dentures here. Continue remdesivir. Left lower lobe pneumonia. Possible aspiration, as did not do well with medications this morning. Continue empiric antibiotic coverage. Continue oxygen support. Wean down as tolerating. Follow-up sputum culture, negative MRSA PCR. Negative urine bacterial antigens. Likely may have some rib fractures as well in the left chest and is sharp pain after fall. Pain control with lidocaine patch, Tylenol. Incentive spirometer. Status: Acute (2) Pneumonia: As above. Status: Acute Qualifiers: Laterality: left Lung location: lower lobe of lung Pneumonia type: due to unspecified organism Qualified Code(s): J18.9 - Pneumonia, unspecified organism (3) COVID-19: Continue remdesivir for now, although thought to be less likely contributing to his current picture. Decadron was stopped. Follow-up D-dimer. Continue VTE prophylaxis. Antitussives. Status: Acute (4) COPD exacerbation: Not in exacerbation at the moment. Status: Acute (5) Smoker: Encourage cessation Status: Acute (6) Dyspnea: Status: Acute (7) Alcohol abuse: Appears to be improved. Continue to monitor for withdrawal. Phenobarbital if needed for withdrawal. Vitamins. Once he is doing little better discussed with case management to offer options for rehabilitation. Status: Acute (8) Alcohol-induced hallucinations: Status: Acute (9) Fall: Left side chest tenderness, possible rib fractures. Reports after a fall at home. Pain control with lidocaine patch, acetaminophen. Incentive spirometer. Fall precautions. Status: Acute Plan #Sepsis secondary to left lower lobe and lingula pneumonia #COVID-19 positive #Acute hypoxic respiratory failure, currently on high flow #Severe centrilobular emphysema #Alcohol abuse #Alcoholic hallucinations #Chronic diastolic congestive heart failure Full code DVT prophylaxis: Heparin 5000 twice daily Attestations Medical Necessity Statement*: Continue admission for assessment and management of acute hypoxic respiratory failure. Coding Level of Care Code Acute Coffee Shop Attendant for [facility] Fwd Exam Comprehensive Diagnoses Acute respiratory failure with hypoxia J96.01 Pneumonia J18.9 Laterality: left Lung location: lower lobe of lung Pneumonia type: due to unspecified organism COVID-19 U07.1 COPD exacerbation J44.1 Smoker F17.200 Dyspnea R06.00 Alcohol abuse F10.10 Alcohol-induced hallucinations F10.951 Fall W19.XXXA
[2022-04-21] MEDS: dexmedeTOMIDine 0.9 % NaCL 400 MCG/100 ML PREMIX IV (14:03)
[2022-04-21 16:51] LABS: Glucose Point of Care 98 mg/dL (70-110)
[2022-04-21] MEDS: polyethylene glycol 3350 Pkt 17 gm PO (17:13)
[2022-04-21] MEDS: remdesivir 100 MG in sodium chloride 0.9% (100 ml) 80 ML IV (17:14)
[2022-04-21 20:52] LABS: Glucose Point of Care 126 mg/dL (70-110)
[2022-04-22] VITALS (71 sets, daily range): BP systolic 82–122; BP diastolic 40–70; PULSE 54–85; RESP 15–27; TEMP 35.9–36.6; O2SAT 76–100
[2022-04-22] MEDS: piperacillin-tazobactam 3.375 GM in sodium chloride 0.9% (plus) 50 ML IV ×3 (01:23→18:50)
[2022-04-22] MEDS: heparin 5,000 unit/mL INJ 1 mL 5000 UNIT SUBCUT ×2 (01:24→14:06)
[2022-04-22 06:25] LABS: Basophils # 0.1 10^3/uL (0.0-0.1); Basophils % 0.4 %; Eosinophils % 0.1 %; Hematocrit 39.4 % (42.0-52.0); Hemoglobin 13.5 g/dL (11.7-16.6); Lymphocytes # 1.2 10^3/uL (0.8-4.8); Lymphocytes % 9.8 %; Mean Corpuscular HGB Conc 34.3 g/dL (30.0-36.0); Mean Corpuscular Hemoglobin 34.8 pg (28.0-34.0); Mean Corpuscular Volume 101.5 fl (80-94); Mean Platelet Volume 12.1 fL (7.4-10.4); Monocytes % 7.9 %; Neutrophils # 9.83 10^3/uL (1.8-7.7); Neutrophils % 81.1 %; Nucleated Red Blood Cells % 0 %; Platelet Count 131 10^3/cmm (130-400); Red Blood Count 3.88 10^6/uL (4.1-5.3); White Blood Count 12.1 10^3/uL (4.0-10.0)
[2022-04-22 06:38] LABS: D Dimer 1.52 ug/mIFEU (0-0.59)
[2022-04-22 06:54] LABS: Alanine Aminotransferase 11 U/L (0-41); Albumin Level 2.8 g/dL (3.5-5.2); Alkaline Phosphatase 55 IU/L (40-130); Anion Gap 14.5 (5-19); Aspartate Amino Transferase 15 U/L (0-40); Blood Urea Nitrogen 25 mg/dL (8-23); Carbon Dioxide 22 mmol/L (22-29); Chloride 102 mmol/L (98-107); Globulin 2.3 g/dL (1.3-4.6); Glucose 92 mg/dL (65-115); Osmolality Calculated 284 mOsm/kg (285-295); Potassium 3.5 mmol/L (3.5-5.1); Sodium 135 mmol/L (136-145); Total Bilirubin 0.3 mg/dL (0.15-1.2); Total Protein 5.1 g/dL (6.6-8.7)
[2022-04-22 07:20] LABS: Glucose Point of Care 107 mg/dL (70-110)
[2022-04-22] MEDS: ipratropium-albuterol 3 mL Neb INHALATION ×3 (08:06→20:16)
[2022-04-22] MEDS: budesonide 0.5 mg/2 mL Neb INHALATION ×2 (08:06→20:16)
[2022-04-22] MEDS: benzonatate 100 mg Capsule PO ×3 (08:24→22:15)
[2022-04-22] MEDS: thiamine 100 mg Tablet PO (08:24)
[2022-04-22] MEDS: zinc gluconate 50 mg Tablet PO (08:24)
[2022-04-22] MEDS: guaiFENesin 600 mg Tablet PO ×2 (08:25→18:50)
[2022-04-22] MEDS: multivitamin therapeutic Tablet 1 TAB PO (08:25)
[2022-04-22] MEDS: folic acid 1 mg Tablet PO (08:25)
[2022-04-22] MEDS: ascorbic acid 500 mg Tablet PO (08:25)
[2022-04-22] MEDS: cholecalciferol (vitamin D3) 1,000 unit Tablet 2000 UNIT PO (08:25)
[2022-04-22] MEDS: lidocaine 5% Patch 1 PATCH TOPICAL (08:27)
[2022-04-22] MEDS: magnesium citrate Btl 296 mL 148 ML PO (08:35)
[2022-04-22] MEDS: polyethylene glycol 3350 Pkt 17 gm PO ×2 (08:36→22:15)
[2022-04-22 11:19] LABS: Glucose Point of Care 102 mg/dL (70-110)
--- NOTE | 2022-04-22 13:11 | PM.PN ---
Subjective Subjective: He states overall is doing a bit better today. Breathing doing okay. Not coughing up as much. MiraLAX and mag citrate worked for constipation. Vitals/I&O/Wt Last Vital Signs Temp 96.6 F L 04/22/22 11:13 Pulse 65 04/22/22 10:15 Resp 19 H 04/22/22 10:15 BP 100/59 04/22/22 10:15 Pulse Ox 96 04/22/22 10:15 O2 Del Method 04/22/22 08:00 O2 Flow Rate 6 04/22/22 08:00 FiO2 40 04/21/22 16:33 04/21/22 04/22/22 04/22/22 22:59 06:59 14:59 Intake Total 150 / 734.04 50 / 784.04 467.167 / 467.167 Output Total 300 / 300 1000 / 1300 Balance -150 / 434.04 -950 / -515.96 467.167 / 467.167 Weight last 48 hrs Weight 56.472 kg Physical Exam Narrative: Up in bed Const: COMMON NORMALS: alert GENERAL APPEARANCE: cooperative ORIENTATION/CONSCIOUSNESS: Yes awake HENMT: COMMON NORMALS: oropharynx normal Neck/C-Spine: COMMON NORMALS: no JVD Resp: COMMON NORMALS: normal respiratory effort and clear to auscultation bilaterally AUSCULTATION: clear to auscultation bilaterally Cardio: COMMON NORMALS: no JVD, regular rhythm, S1 normal heart sound present, S2 normal heart sound present and No murmurs present (Cardio) RHYTHM: regular rhythm HEART SOUNDS: S1 normal heart sound present and S2 normal heart sound present GI: COMMON NORMALS: Normal to inspection, nondistended, normoactive bowel sounds present, Soft to palpation and non-tender PALPATION: Yes Soft to palpation Extremity: COMMON NORMALS: no joint enlargement and no pedal edema Neuro: COMMON NORMALS: moves all extremities SENSORIUM/ORIENTATION: Yes alert Skin: COMMON NORMALS: no rashes or lesions noted GENERAL SKIN EXAM: no rashes or lesions noted Urinary Catheter Management: Juarez: Cath Placed During This Visit: yes Reason for Continuing Indwelling Catheter: Acute Urinary Retention or Obstruction Urinary Catheter Date of Insertion: 04/20/22 Urinary Catheter Time of Insertion: 05:18 Data : 04/22/22 05:20 04/22/22 05:20 Micro: Microbiology 04/19/22 23:12 Gram Stain - Final Sputum - Expectorated Sputum Sputum Culture - Preliminary Gram Negative Rods A&P Assessment and plan (1) Acute respiratory failure with hypoxia: Hypoxia gradually improving. Appears to be weaning off heated high flow. Currently down to 6 L nasal cannula. Continue antibiotic for left lower lung pneumonia. Growing gram-negative rods in sputum. Continue oxygen support. Continue remdesivir. Wean down oxygen as tolerating. Follow-up D-dimer. He is weaning off Precedex. If continues to do well, transferred to continue care on medical floor. Limited baseline pulmonary function, DLCO 30%. Aspiration precautions. Pur?ed diet, thin liquids noted on speech therapy assessment. Does not have his dentures here. Left lower lobe pneumonia. Possibly after aspiration. Follow-up sputum culture, negative MRSA PCR. Negative urine bacterial antigens. Likely may have some rib fractures as well in the left chest and is sharp pain after fall. Pain control with lidocaine patch, Tylenol. Incentive spirometer. Status: Acute (2) Pneumonia: As above. Status: Acute Qualifiers: Laterality: left Lung location: lower lobe of lung Pneumonia type: due to unspecified organism Qualified Code(s): J18.9 - Pneumonia, unspecified organism (3) COVID-19: Continue remdesivir for now, although thought to be less likely contributing to his current picture. Decadron was stopped. Follow-up D-dimer. Continue VTE prophylaxis. Antitussives. Status: Acute (4) COPD exacerbation: Not in exacerbation at the moment. Status: Acute (5) Smoker: Encourage cessation Status: Acute (6) Dyspnea: Status: Acute (7) Alcohol abuse: Appears to be improved. Continue to monitor for withdrawal. Weaning of Precedex. If continues to do well, transfer to medical floor. Phenobarbital if needed for withdrawal. Vitamins. Once he is doing little better discussed with case management to offer options for rehabilitation. Status: Acute (8) Alcohol-induced hallucinations: Status: Acute (9) Fall: Left side chest tenderness, possible rib fractures. Reports after a fall at home. Pain control with lidocaine patch, acetaminophen. Incentive spirometer. Fall precautions. 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
[2022-04-22] MEDS: predniSONE 5 mg Tablet 7.5 MG PO (14:06)
[2022-04-22] MEDS: nicotine 21 mg Patch 1.5 PATCH TRANSDERMA (15:28)
[2022-04-22] MEDS: ALPRAZolam 0.5 mg Tablet 1 MG PO (16:09)
[2022-04-22 16:24] LABS: Glucose Point of Care 93 mg/dL (70-110)
[2022-04-22 21:20] LABS: Glucose Point of Care 192 mg/dL (70-110)
[2022-04-22] MEDS: insulin lispro 100 unit/1 mL SUBCUT (22:16)
[2022-04-23] VITALS (18 sets, daily range): BP systolic 115–138; BP diastolic 63–82; PULSE 50–83; RESP 18–25; TEMP 36.6–36.9; O2SAT 89–94
[2022-04-23] MEDS: remdesivir 100 MG in sodium chloride 0.9% (100 ml) 80 ML IV ×2 (00:25→18:53)
[2022-04-23] MEDS: lidocaine 5% Patch 1 PATCH TOPICAL ×3 (00:26→21:44)
[2022-04-23] MEDS: piperacillin-tazobactam 3.375 GM in sodium chloride 0.9% (plus) 50 ML IV ×3 (01:26→18:06)
[2022-04-23] MEDS: heparin 5,000 unit/mL INJ 1 mL 5000 UNIT SUBCUT ×2 (01:27→13:31)
[2022-04-23 05:25] LABS: Basophils % 0.3 %; Eosinophils % 0.3 %; Hematocrit 42.6 % (42.0-52.0); Hemoglobin 14.4 g/dL (11.7-16.6); Lymphocytes # 1.3 10^3/uL (0.8-4.8); Lymphocytes % 16.3 %; Mean Corpuscular HGB Conc 33.8 g/dL (30.0-36.0); Mean Corpuscular Hemoglobin 34.5 pg (28.0-34.0); Mean Corpuscular Volume 102.2 fl (80-94); Mean Platelet Volume 11.3 fL (7.4-10.4); Monocytes # 0.9 10^3/uL (0.2-0.9); Monocytes % 11.3 %; Neutrophils # 5.48 10^3/uL (1.8-7.7); Neutrophils % 70.9 %; Nucleated Red Blood Cells % 0 %; Platelet Count 152 10^3/cmm (130-400); Red Blood Count 4.17 10^6/uL (4.1-5.3); Red Cell Distribution Width 14.2 % (12.1-15.1); White Blood Count 7.7 10^3/uL (4.0-10.0)
[2022-04-23 05:56] LABS: Alanine Aminotransferase 80 U/L (0-41); Albumin Level 2.9 g/dL (3.5-5.2); Alkaline Phosphatase 174 IU/L (40-130); Anion Gap 11.7 (5-19); Aspartate Amino Transferase 82 U/L (0-40); Blood Urea Nitrogen 18 mg/dL (8-23); Calcium 9.4 mg/dL (8.5-10.5); Carbon Dioxide 29 mmol/L (22-29); Chloride 103 mmol/L (98-107); Globulin 2.5 g/dL (1.3-4.6); Glucose 114 mg/dL (65-115); Osmolality Calculated 293 mOsm/kg (285-295); Potassium 3.7 mmol/L (3.5-5.1); Sodium 140 mmol/L (136-145); Total Bilirubin 0.2 mg/dL (0.15-1.2); Total Protein 5.4 g/dL (6.6-8.7)
[2022-04-23 06:39] LABS: Glucose Point of Care 120 mg/dL (70-110)
[2022-04-23] MEDS: ipratropium-albuterol 3 mL Neb INHALATION ×4 (08:23→19:35)
[2022-04-23] MEDS: budesonide 0.5 mg/2 mL Neb INHALATION ×2 (08:23→19:36)
[2022-04-23] MEDS: predniSONE 5 mg Tablet 7.5 MG PO (09:00)
[2022-04-23] MEDS: ascorbic acid 500 mg Tablet PO (09:00)
[2022-04-23] MEDS: guaiFENesin 600 mg Tablet PO ×2 (09:01→18:07)
[2022-04-23] MEDS: benzonatate 100 mg Capsule PO ×3 (09:01→21:34)
[2022-04-23] MEDS: folic acid 1 mg Tablet PO (09:01)
[2022-04-23] MEDS: citalopram 20 mg Tablet PO (09:01)
[2022-04-23] MEDS: multivitamin therapeutic Tablet 1 TAB PO (09:01)
[2022-04-23] MEDS: cholecalciferol (vitamin D3) 1,000 unit Tablet 2000 UNIT PO (09:01)
[2022-04-23] MEDS: zinc gluconate 50 mg Tablet PO (09:02)
[2022-04-23] MEDS: pantoprazole DR 40 mg Tablet PO (09:02)
[2022-04-23] MEDS: thiamine 100 mg Tablet PO (09:02)
[2022-04-23] MEDS: nicotine 21 mg Patch 1.5 PATCH TRANSDERMA (09:02)
[2022-04-23] MEDS: ALPRAZolam 0.5 mg Tablet 1 MG PO ×2 (09:03→21:34)
--- NOTE | 2022-04-23 10:23 | PC.SOCIAL ---
Pg 2 IMM Explained to pt Pg 2 IMM. No questions voiced. Provided pt a copy. Initialed, dated, & timed a copy & placed in chart.
[2022-04-23 11:12] LABS: Glucose Point of Care 121 mg/dL (70-110)
--- NOTE | 2022-04-23 17:28 | PM.PN ---
Subjective Subjective: He is overall improving. His breathing is gradually getting better. He states the pain in the chest wall has resolved. Is having some soreness in his head from the band that was supporting the high flow nasal cannula, mild headache. Denies vomiting or diarrhea. Coughing up some more phlegm today. Vitals/I&O/Wt Last Vital Signs Temp 97.8 F 04/23/22 16:06 Pulse 72 04/23/22 16:06 Resp 18 04/23/22 16:06 BP 121/68 04/23/22 16:06 Pulse Ox 94 04/23/22 16:06 O2 Del Method 04/23/22 16:06 O2 Flow Rate 3 04/23/22 15:09 FiO2 40 04/21/22 16:33 04/23/22 04/23/22 04/23/22 06:59 14:59 22:59 Intake Total 1040 / 1840.000 440 / 440 Output Total 1500 / 2220 Balance -460 / -380.000 440 / 440 Weight last 48 hrs Weight 59.148 kg Physical Exam Narrative: Up in bed Accompanied by his daughter at bedside. Const: COMMON NORMALS: alert GENERAL APPEARANCE: cooperative ORIENTATION/CONSCIOUSNESS: Yes awake HENMT: COMMON NORMALS: oropharynx normal Neck/C-Spine: COMMON NORMALS: no JVD Resp: COMMON NORMALS: normal respiratory effort and clear to auscultation bilaterally AUSCULTATION: clear to auscultation bilaterally Cardio: COMMON NORMALS: no JVD, regular rhythm, S1 normal heart sound present, S2 normal heart sound present and No murmurs present (Cardio) RHYTHM: regular rhythm HEART SOUNDS: S1 normal heart sound present and S2 normal heart sound present GI: COMMON NORMALS: Normal to inspection, nondistended, normoactive bowel sounds present, Soft to palpation and non-tender PALPATION: Yes Soft to palpation Extremity: COMMON NORMALS: no joint enlargement and no pedal edema Neuro: COMMON NORMALS: moves all extremities SENSORIUM/ORIENTATION: Yes alert Skin: COMMON NORMALS: no rashes or lesions noted GENERAL SKIN EXAM: no rashes or lesions noted Urinary Catheter Management: Juarez: Cath Placed During This Visit: yes Reason for Continuing Indwelling Catheter: Accurate Measurement of Urinary Output in Critically Ill Patients Urinary Catheter Date of Insertion: 04/20/22 Urinary Catheter Time of Insertion: 05:18 Data : 04/23/22 04:55 04/23/22 04:55 Micro: Microbiology 04/19/22 23:12 Gram Stain - Final Sputum - Expectorated Sputum Sputum Culture - Final Pseudomonas aeruginosa Streptococcus pneumoniae A&P Assessment and plan (1) Acute respiratory failure with hypoxia: Continue to improve respiratory status. He is weaning down and off of heated high flow, down to nasal cannula and coming down from 8 L yesterday, from 5 L this morning. Not about 3 L this afternoon. If continues to improve, likely may be able to return home possibly in the next 1-2 days. Continue antibiotic for left lower lung pneumonia. Possibly after aspiration. Growing Pseudomonas aeruginosa, pansensitive and strep pneumo in sputum culture. Will need appropriate coverage at discharge. Continue oxygen support. Continue remdesivir until ready for discharge. Wean down oxygen as tolerating. Follow-up D-dimer. Off Precedex. Limited baseline pulmonary function, DLCO 30%. Aspiration precautions. Soft consistency diet. Does not commonly use dentures at home. Likely may have some rib fractures as well in the left chest and is sharp pain after fall. Pain control with lidocaine patch, Tylenol. Incentive spirometer. Pain so far resolved. Home O2 eval prior to discharge. Daughter tells me has had oxygen at home previously but only as needed basis. Status: Acute (2) Pneumonia: As above. Status: Acute Qualifiers: Laterality: left Lung location: lower lobe of lung Pneumonia type: due to unspecified organism Qualified Code(s): J18.9 - Pneumonia, unspecified organism (3) COVID-19: Continue remdesivir until ready for discharge, although thought to be less likely contributing to his current picture. Decadron was stopped. Follow-up D-dimer. Continue VTE prophylaxis. Antitussives. Status: Acute (4) COPD exacerbation: Not in exacerbation at the moment. Status: Acute (5) Smoker: Encourage cessation Status: Acute (6) Dyspnea: Status: Acute (7) Alcohol abuse: Appears to be improved. Continue to monitor for withdrawal. Weaned off Precedex. Vitamins. Once he is doing little better discussed with case management to offer options for rehabilitation. Status: Acute (8) Alcohol-induced hallucinations: Status: Acute (9) Fall: Left side chest tenderness, possible rib fractures. Reports after a fall at home. Resolved. Pain control with lidocaine patch, acetaminophen. Incentive spirometer. Fall precautions. Status: Acute Plan #Sepsis resolved #COVID-19 positive #Acute hypoxic respiratory failure, currently on high flow #Severe centrilobular emphysema #Alcohol abuse #Alcoholic hallucinations #Chronic diastolic congestive heart failure Full code DVT prophylaxis: Heparin 5000 twice daily Attestations Medical Necessity Statement*: Continue admission for assessment of management of hypoxic respite failure, lobar pneumonia, COVID-19, discharge planning. Coding Level of Care Code Acute Rn Pediatric for [facility] Diagnoses Acute respiratory failure with hypoxia J96.01 Pneumonia J18.9 Laterality: left Lung location: lower lobe of lung Pneumonia type: due to unspecified organism COVID-19 U07.1 COPD exacerbation J44.1 Smoker F17.200 Dyspnea R06.00 Alcohol abuse F10.10 Alcohol-induced hallucinations F10.951 Fall W19.XXXA
[2022-04-23 17:30] LABS: Glucose Point of Care 232 mg/dL (70-110)
[2022-04-23] MEDS: insulin lispro 100 unit/1 mL SUBCUT ×2 (18:07→21:34)
[2022-04-23 21:28] LABS: Glucose Point of Care 179 mg/dL (70-110)
[2022-04-24] VITALS (11 sets, daily range): BP systolic 111–126; BP diastolic 67–72; PULSE 70–87; RESP 16–18; TEMP 36.3–36.4; O2SAT 83–95
[2022-04-24] MEDS: heparin 5,000 unit/mL INJ 1 mL 5000 UNIT SUBCUT ×2 (00:01→16:01)
[2022-04-24] MEDS: piperacillin-tazobactam 3.375 GM in sodium chloride 0.9% (plus) 50 ML IV ×2 (00:01→08:59)
[2022-04-24 04:35] LABS: Basophils % 0.2 %; Eosinophils # 0.1 10^3/uL (0.0-0.8); Eosinophils % 1.2 %; Hematocrit 45.5 % (42.0-52.0); Hemoglobin 15.3 g/dL (11.7-16.6); Lymphocytes % 20.3 %; Mean Corpuscular HGB Conc 33.6 g/dL (30.0-36.0); Mean Corpuscular Hemoglobin 35.2 pg (28.0-34.0); Mean Corpuscular Volume 104.6 fl (80-94); Mean Platelet Volume 11.3 fL (7.4-10.4); Monocytes # 1.5 10^3/uL (0.2-0.9); Monocytes % 15.3 %; Neutrophils # 6.08 10^3/uL (1.8-7.7); Neutrophils % 61.9 %; Nucleated Red Blood Cells % 0 %; Platelet Count 170 10^3/cmm (130-400); Red Blood Count 4.35 10^6/uL (4.1-5.3); Red Cell Distribution Width 14.3 % (12.1-15.1); White Blood Count 9.8 10^3/uL (4.0-10.0)
[2022-04-24 04:47] LABS: D Dimer 1.13 ug/mIFEU (0-0.59)
[2022-04-24 05:07] LABS: Alanine Aminotransferase 65 U/L (0-41); Albumin Level 3.3 g/dL (3.5-5.2); Alkaline Phosphatase 189 IU/L (40-130); Aspartate Amino Transferase 36 U/L (0-40); Blood Urea Nitrogen 14 mg/dL (8-23); Carbon Dioxide 28 mmol/L (22-29); Chloride 101 mmol/L (98-107); Globulin 2.8 g/dL (1.3-4.6); Glucose 94 mg/dL (65-115); Osmolality Calculated 290 mOsm/kg (285-295); Sodium 140 mmol/L (136-145); Total Bilirubin 0.3 mg/dL (0.15-1.2); Total Protein 6.1 g/dL (6.6-8.7)
[2022-04-24 06:41] LABS: Glucose Point of Care 95 mg/dL (70-110)
[2022-04-24] MEDS: ipratropium-albuterol 3 mL Neb INHALATION ×2 (08:56→13:29)
[2022-04-24] MEDS: budesonide 0.5 mg/2 mL Neb INHALATION (08:56)
[2022-04-24] MEDS: thiamine 100 mg Tablet PO (08:58)
[2022-04-24] MEDS: guaiFENesin 600 mg Tablet PO (08:58)
[2022-04-24] MEDS: pantoprazole DR 40 mg Tablet PO (08:58)
[2022-04-24] MEDS: ascorbic acid 500 mg Tablet PO (08:58)
[2022-04-24] MEDS: cholecalciferol (vitamin D3) 1,000 unit Tablet 2000 UNIT PO (08:58)
[2022-04-24] MEDS: benzonatate 100 mg Capsule PO ×2 (08:58→16:01)
[2022-04-24] MEDS: zinc gluconate 50 mg Tablet PO (08:58)
[2022-04-24] MEDS: citalopram 20 mg Tablet PO (08:58)
[2022-04-24] MEDS: lidocaine 5% Patch 1 PATCH TOPICAL (08:59)
[2022-04-24] MEDS: multivitamin therapeutic Tablet 1 TAB PO (08:59)
[2022-04-24] MEDS: folic acid 1 mg Tablet PO (08:59)
[2022-04-24] MEDS: predniSONE 5 mg Tablet 7.5 MG PO (09:00)
[2022-04-24] MEDS: nicotine 21 mg Patch 1.5 PATCH TRANSDERMA (09:00)
[2022-04-24 11:14] LABS: Glucose Point of Care 115 mg/dL (70-110)
--- NOTE | 2022-04-24 13:54 | PM.DCS ---
Discharge Providers Date of Admission: 04/20/22 00:26 Date of Discharge: April 24, 2022 Attending Provider at Admission: Betsy Bradley MD Attending Provider at Discharge: Tricia Cabello MD Primary Care Provider: MADELINE Kwon Diagnoses at Discharge Discharge Diagnosis (1) Acute respiratory failure with hypoxia: Status: Acute (2) Pneumonia: Status: Acute Qualifiers: Laterality: left Lung location: lower lobe of lung Pneumonia type: due to unspecified organism Qualified Code(s): J18.9 - Pneumonia, unspecified organism (3) COVID-19: Status: Acute (4) COPD exacerbation: Status: Acute (5) Smoker: Status: Acute (6) Dyspnea: Status: Acute (7) Alcohol abuse: Status: Acute (8) Alcohol-induced hallucinations: Status: Acute (9) Fall: Status: Acute Reason for Visit Reason for Visit: [facility] Course Hospital Course George Arriaga is a 81 year old male with an extensive history of smoking and alcohol abuse.? The patient carries a diagnosis of COPD.?Patient presented to the hospital with worsening shortness of breath, generalized weakness and fatigue on 04/20/22. He had been complaining of fever, chills, body ache and shortness of breath.? Pulse oximetry at home revealed an oxygen saturation of 70% and the patient was brought to the hospital. He tested positive for COVID-19. The patient had a CT angiogram of the chest which revealed left lower lobe infiltrate on the background of emphysema. No PE. Sputum cx showed Pseudomonas and streptococcus. He received treatment with 5 days of remdisivir, po prednisone and iv piperacillin- tazobactam for added bacterial pneumonia. He was able to be weaned down from heated high flow to nasal canula at 3lpm (baseline requirement is 2lpm at home). He is overall improved, feels back to baseline. He is being discharged today in stable to improved condition. Physical Exam Narrative: General: No acute distress, AO x3, cachexic, chronically ill appeaing male HEENT: PERRLA, pupils bilaterally equal and reactive, pallors not present Chest: coarse breath sounds B/L CVS: S1-S2 regular, no murmurs, no tachycardia, no gallops, no rubs Abdomen: Soft, nontender, no organomegaly, bowel sounds present Neuro: No focal deficits, no facial deformity, AO x3, power 5/5 in all limbs Extremities: no clubbing, edema or cyanosis Urinary Catheter Management: Juarez: Cath Placed During This Visit: yes Reason for Continuing Indwelling Catheter: Acute Urinary Retention or Obstruction Urinary Catheter Date of Insertion: 04/20/22 Urinary Catheter Time of Insertion: 05:18 Discharge Data Studies Completed and Pending Completed Studies During Hospitalization Category Date Time Status CTA chest [CT angio chest PE protcl 32004] Urgent Cat Scan 04/19/22 20:44 Completed XR chest 1V portable [id number] Stat Exams 04/19/22 19:58 Completed Pending at discharge Category Date Time Status Blood Culture Stat Lab 04/20/22 01:48 Results Complete Blood Count w/Auto AM LABS Lab 04/25/22 04:00 Ordered Complete Blood Count w/Auto AM LABS Lab 04/26/22 04:00 Ordered Comprehensive Metabolic Panel AM LABS Lab 04/25/22 04:00 Ordered Comprehensive Metabolic Panel AM LABS Lab 04/26/22 04:00 Ordered Interleukin 6 (IL-6) Serum Stat Lab 04/19/22 23:02 Received Radiology Impressions Chest X-Ray 04/19/22 19:58 IMPRESSION: 1. Left lower lobe pneumonia. 2. COPD. COMMENTS: Follow-up radiography recommended after treatment to document complete clearing. Chest CTA 04/19/22 20:44 IMPRESSION: 1. COPD 2. Left lower lobe pneumonia 3. No evidence of pulmonary embolism. COMMENTS: Follow-up imaging recommended to document complete resolution of the pneumonia following treatment. Laboratory Results WBC 9.8 10^3/uL (4.0-10.0) 04/24/22 03:15 RBC 4.35 10^6/uL (4.1-5.3) 04/24/22 03:15 Hgb 15.3 g/dL (11.7-16.6) 04/24/22 03:15 Hct 45.5 % (42.0-52.0) 04/24/22 03:15 MCV 104.6 fl (80-94) H 04/24/22 03:15 MCH 35.2 pg (28.0-34.0) H 04/24/22 03:15 MCHC 33.6 g/dL (30.0-36.0) 04/24/22 03:15 RDW 14.3 % (12.1-15.1) 04/24/22 03:15 Plt Count 170 10^3/cmm (130-400) 04/24/22 03:15 MPV 11.3 fL (7.4-10.4) H 04/24/22 03:15 Neut % (Auto) 61.9 % 04/24/22 03:15 Lymph % (Auto) 20.3 % 04/24/22 03:15 [place] % (Auto) 15.3 % 04/24/22 03:15 Eos % (Auto) 1.2 % 04/24/22 03:15 Baso % (Auto) 0.2 % 04/24/22 03:15 Neut # (Auto) 6.08 10^3/uL (1.8-7.7) 04/24/22 03:15 Lymph # (Auto) 2.0 10^3/uL (0.8-4.8) 04/24/22 03:15 [place] # (Auto) 1.5 10^3/uL (0.2-0.9) H 04/24/22 03:15 Eos # (Auto) 0.1 10^3/uL (0.0-0.8) 04/24/22 03:15 Baso # (Auto) 0.0 10^3/uL (0.0-0.1) 04/24/22 03:15 Nucleated RBC % (auto) 0 % 04/24/22 03:15 Total Counted 100 (0-100) 04/19/22 20:13 Atypical Lymphs % 5.0 % (0-5) 04/19/22 20:13 Absolute Neutrophils 4.0 10^3/cmm (1.4-6.5) 04/19/22 20:13 Segmented Neutrophils 33 % 04/19/22 20:13 Abs Segm Neuts (Man) 2.3 10/cmm (1.6-7.1) 04/19/22 20:13 Band Neutrophils 23.0 % 04/19/22 20:13 Abs Band Neuts (Man) 1.6 10^3/cmm (0.0-1.2) H 04/19/22 20:13 Absolute Lymphocytes 0.7 10^3/cmm (1.2-3.4) L 04/19/22 20:13 Lymphocytes (Manual) 5 % 04/19/22 20:13 Monocytes (Manual) 1.0 % 04/19/22 20:13 Absolute Monocytes 0.1 10^3/cmm (0.1-0.6) 04/19/22 20:13 Eosinophils (Manual) 0 % 04/19/22 20:13 Absolute Eosinophils 0.0 10^3/cmm (0.0-0.7) 04/19/22 20:13 Basophils (Manual) 0.0 % 04/19/22 20:13 Absolute Basophils 0.0 10^3/cmm (0.0-0.2) 04/19/22 20:13 Metamyelocytes 15.0 % 04/19/22 20:13 Myelocytes 18.0 % 04/19/22 20:13 Nucleated RBCs # 0.0 /100WBC 04/24/22 03:15 Platelet Estimate Normal (Normal) 04/19/22 20:13 Giant Platelets 1+ H 04/19/22 20:13 PT 16.10 SECONDS (12.1-14.9) H 04/19/22 20:13 INR 1.26 (0.8-1.2) H 04/19/22 20:13 APTT 36.9 SECONDS (23.9-36.7) H 04/19/22 20:13 Fibrinogen 453 mg/dL (174-498) 04/19/22 20:13 D-Dimer 1.13 ug/mIFEU (0-0.59) H 04/24/22 03:15 Specimen Type Arterial 04/19/22 20:09 Sample Site Radial, right 04/19/22 20:09 ABG pH 7.47 (7.35-7.45) H 04/19/22 20:09 ABG pCO2 28.8 mmHg (35-45) L 04/19/22 20:09 ABG pO2 45.2 mmHg (80.0-100.0) L 04/19/22 20:09 ABG HCO3 21.0 mmol/L (22-26) L 04/19/22 20:09 ABG Base Excess -1.2 mmol/L (-2.0-2.0) 04/19/22 20:09 Abdoul Test Pos 04/19/22 20:09 Hematocrit 49.5 % (42-52) 04/19/22 20:09 O2 Delivery Device Nc 04/19/22 20:09 O2 Liters/Min 3.5 % 04/19/22 20:[address] Service ID Leonor 04/19/22 20:09 Sodium 140 mmol/L (136-145) 04/24/22 03:15 Potassium 4.0 mmol/L (3.5-5.1) 04/24/22 03:15 Chloride 101 mmol/L (98-107) 04/24/22 03:15 Carbon Dioxide 28 mmol/L (22-29) 04/24/22 03:15 Anion Gap 15.0 (5-19) 04/24/22 03:15 BUN 14 mg/dL (8-23) 04/24/22 03:15 Creatinine 0.6 mg/dL (0.7-1.2) L 04/24/22 03:15 GFR Calculation Not Reportable 04/24/22 03:15 Glucose 94 mg/dL (65-115) 04/24/22 03:15 POC Glucose 115 mg/dL (70-110) H 04/24/22 10:57 Calculated Osmolality 290 mOsm/kg (285-295) 04/24/22 03:15 Lactic Acid 3.2 mmol/L (0.5-2.2) H 04/19/22 20:13 Lactic Acid (Sepsis) 3.7 mmol/L (0.5-2.2) H 04/19/22 22:53 Lactate 2.8 mmol/L (0.5-2.2) H 04/20/22 06:46 Calcium 10.0 mg/dL (8.5-10.5) 04/24/22 03:15 Magnesium 1.3 mg/dL (1.7-2.3) L 04/20/22 01:48 Ferritin 322 ng/mL (30-400) 04/19/22 20:13 Total Bilirubin 0.3 mg/dL (0.15-1.2) 04/24/22 03:15 AST 36 U/L (0-40) 04/24/22 03:15 ALT 65 U/L (0-41) H 04/24/22 03:15 Alkaline Phosphatase 189 IU/L (40-130) H 04/24/22 03:15 Lactate Dehydrogenase 175 U/L (135-225) 04/19/22 20:13 Creatine Kinase 45 U/L (39-308) 04/19/22 20:13 Troponin T Gen 5 ng/L 11 ng/L (0-15) 04/19/22 20:13 C-Reactive Protein 205.4 mg/L (0.0-4.9) H 04/19/22 20:13 NT-Pro-B Natriuret Pep 2331 pg/mL (0-450) H 04/19/22 20:13 Total Protein 6.1 g/dL (6.6-8.7) L 04/24/22 03:15 Albumin 3.3 g/dL (3.5-5.2) L 04/24/22 03:15 Globulin 2.8 g/dL (1.3-4.6) 04/24/22 03:15 Procalcitonin 23.81 ng/mL (0-0.5) H 04/19/22 20:13 Procalcitonin 23.96 ng/mL (0-0.5) H 04/19/22 20:13 Nasal Influ A H1 2009 PCR Not detected (NOT DETECT) 04/19/22 20:29 Adenovirus (PCR) Not detected (NOT DETECT) 04/19/22 20:29 C. pneumoniae DNA (PCR) Not detected (NOT DETECT) 04/19/22 20:29 Coronavirus 229E (PCR) Not detected (NOT DETECT) 04/19/22 20:29 Human Metapneumovir PCR Not detected (NOT DETECT) 04/19/22 20:29 Influenza A (H1) PCR Not detected (NOT DETECT) 04/19/22 20:29 Influenza A (H3) PCR Not detected (NOT DETECT) 04/19/22 20:29 Influenza Type A (PCR) Not detected (NOT DETECT) 04/19/22 20:29 Influenza Type B (PCR) Not detected (NOT DETECT) 04/19/22 20:29 M. pneumoniae (PCR) Not detected (NOT DETECT) 04/19/22 20:29 Parainfluenza 1 (PCR) Not detected (NOT DETECT) 04/19/22 20:29 Parainfluenza 2 (PCR) Not detected (NOT DETECT) 04/19/22 20:29 Parainfluenza 3 (PCR) Not detected (NOT DETECT) 04/19/22 20:29 Parainfluenza 4 (PCR) Not detected (NOT DETECT) 04/19/22 20:29 RSV Type A (PCR) Not detected (NOT DETECT) 04/19/22 20:29 RSV Type B (PCR) Not detected (NOT DETECT) 04/19/22 20:29 Entero/Rhino (PCR) Not detected (NOT DETECT) 04/19/22 20:29 SARS-CoV-2 (PCR) Detected (NOT DETECT) A 04/19/22 20:29 Vitals Last Vital Signs Temp 97.5 F L 04/24/22 11:44 Pulse 73 04/24/22 13:10 Resp 17 04/24/22 13:00 BP 111/67 04/24/22 11:44 Pulse Ox 85 L 04/24/22 13:48 O2 Del Method 04/24/22 13:00 O2 Flow Rate 3 04/24/22 13:48 FiO2 40 04/21/22 16:33 Discharge Plan Discharge Patient Disposition: Home Condition: Stable Prescriptions: New amoxicillin-pot clavulanate [Augmentin] 500-125 mg tablet 1 tab PO BID 5 Days Qty: 10 0RF levofloxacin 750 mg tablet 750 mg PO DAILY 5 Days Qty: 5 0RF Continued Trelegy Ellipta 100-62.5-25 mcg blister with device 1 inh inhalation DAILY Qty: 60 3RF citalopram [Celexa] 10 mg Tablet 20 mg PO DAILY@0800 prednisone 5 mg Tablet 5 mg PO DAILY@0800 Hold Instructions: Resume on 09/15/20. albuterol sulfate [Ventolin HFA] 90 mcg/actuation Hfa Aerosol Inhaler 2 puff INHALATION 6XD PRN (Reason: Shortness Of Breath) ferrous gluconate 324 mg (37.5 mg iron) Tablet 324 mg PO BIDWM Qty: 60 0RF ipratropium-albuterol 20-100 mcg/actuation mist 1 puff inhalation Q6H Qty: 4 0RF Zyrtec 10 mg Tablet 10 mg PO DAILY PRN (Reason: Allergy Symptoms) Vitamin B-12 500 mcg Tablet 500 mcg PO DAILY omeprazole 20 mg Capsule,Delayed Release(Dr/Ec) 20 mg PO DAILY Symbicort 160-4.5 mcg/actuation Hfa Aerosol Inhaler 2 puff INHALATION BID Ocuvite Adult 50 Plus 250-5-1 mg Capsule 1 cap PO BID Mucinex 600 mg Tablet Extended Release 12hr 600 mg PO BID Breztri Aerosphere 160-9-4.8 mcg/actuation Hfa Aerosol Inhaler 2 inh INHALATION BID fluticasone propionate 50 mcg/actuation [place],Suspension 1 spray INTRANASAL DAILY Rx Instructions: administer into each nostril Advil 200 mg Tablet 200 mg PO Q6H PRN (Reason: Pain) thiamine mononitrate (vit B1) 100 mg Tablet 100 mg PO DAILY Discharge Orders: Discharge Order (Routine); Ordered 04/24/22 Ordered By: Tricia Cabello Referrals: Dee Alston FNP [Primary Care Provider] - Discharge Diet: Usual diet Discharge Activity: Increase activity as tolerated Patient Instructions: Opioid Safety Discharge Attestations Time Spent in Discharge Care*: greater than 30 min Status at Discharge: Cognitive status at discharge: cognitively intact, Behavioral status at discharge: cooperative, Quality Metrics Clinical Quality Measures [ No reported AMI, CVA or VTE this stay] Coding Level of Care Code Acute g [facility] note Diagnoses Acute respiratory failure with hypoxia J96.01 Pneumonia J18.9 Laterality: left Lung location: lower lobe of lung Pneumonia type: due to unspecified organism COVID-19 U07.1 COPD exacerbation J44.1 Smoker F17.200 Dyspnea R06.00 Alcohol abuse F10.10 Alcohol-induced hallucinations F10.951 Fall W19.XXXA
== END 2022-04-24 16:30 | disposition home health service (06) | DRG 871 ==
LOC: ER 22:14 → ICU 04-20 01:28 → MEDSURG 04-22 17:32
PROVIDERS: Internal Medicine; Admitting Provider Internal Medicine; Emergency Provider Emergency Medicine; PCP Nurse Practitioner; Visit Provider Student in an Organized Health Care Education/Training Program
DX: A41.89 Other specified sepsis (principal); J13 Pneumonia due to Streptococcus pneumoniae; U07.1 COVID-19; J15.1 Pneumonia due to Pseudomonas; J69.0 Pneumonitis due to inhalation of food and vomit; J96.01 Acute respiratory failure with hypoxia; F10.151 Alcohol abuse with alcohol-induced psychotic disorder with hallucinations; I50.32 Chronic diastolic (congestive) heart failure; F10.139 Alcohol abuse with withdrawal, unspecified; J43.2 Centrilobular emphysema; G25.0 Essential tremor; F17.210 Nicotine dependence, cigarettes, uncomplicated; Z87.01 Personal history of pneumonia (recurrent); W19.XXXA Unspecified fall, initial encounter; K70.30 Alcoholic cirrhosis of liver without ascites; Y90.9 Presence of alcohol in blood, level not specified; I95.9 Hypotension, unspecified; R07.81 Pleurodynia; Z79.51 Long term (current) use of inhaled steroids; Z79.52 Long term (current) use of systemic steroids
CPT/HCPCS: 36415; 36416; 36600; 51702; 71045; 71275; 80053; 82550; 82728; 82803; 82962; 83520; 83605; 83615; 83735; 83880; 84145; 84484; 85007; 85025; 85378; 85384; 85610; 85730; 86140; 86403; 87040; 87070; 87077; 87186; 87205; 87449; 87486; 87581; 87633; 87641; 92523; 92526; 92610; 93005; 94640; 96365; 96367; 96372; 99285; J0692; J1100; J1644; J1815; J2543; J2930; J3370; J3411; J3475; J7040; J7050; J7512; J7626; Q0144; Q9967

== ENCOUNTER 2023-07-04 09:20 | Outpatient (CLI) | payer OTHER, SELFPAY ==
--- NOTE | 2023-07-04 09:24 | CT_ITS ---
WS: [id number] CT HEAD TECHNIQUE: Noncontrast CT of the head obtained from the skullbase to the vertex. CLINICAL INFORMATION: TIA'S/SLURRED SPEECH COMPARISON: None. DLP: [id number] scans at [facility] use at least one of these dose optimization techniques: automated e xposure control; mA and/or kV adjustment per patient size (includes targeted exams where dose is matc hed to clinical indication); or iterative reconstruction. FINDINGS: No evidence of intracranial hemorrhage or mass effect. Ventricular system and basal cisterns are mak nt. Moderate small vessel changes with moderate parenchymal volume loss. No extra-axial fluid collect ions. No evidence of mass or mass effect. Intracranial vascular calcification. Mild mucosal thickening frontoethmoidal recesses. Mastoid air cells well aerated. IMPRESSION: 1. No evidence of intracranial hemorrhage or mass effect. 2. Moderate small vessel changes with moderate parenchymal volume loss. 3. Intracranial vascular calcification. 4. No acute intracranial findings.
== END 2023-07-04 09:21 | disposition home or self-care (01) ==
PROVIDERS: PCP Nurse Practitioner; Visit Provider Nurse Practitioner
DX: G45.9 Transient cerebral ischemic attack, unspecified (principal); R47.81 Slurred speech; G93.89 Other specified disorders of brain; I67.2 Cerebral atherosclerosis
CPT/HCPCS: 70450

== ENCOUNTER → 2024-03-26 06:01 | Outpatient (CLI) | payer OTHER, SELFPAY ==
--- NOTE | 2024-03-26 06:15 | US_ITS ---
WS: [id number] Gallbladder and right upper quadrant ultrasound, 03/26/2024 Clinical Data: SCREENING Comparison: None. Findings: The gallbladder shows is enlarged and shows sludge. There are gallstones in the fundus. The wall carlos ures 0.2 cm with no pericholecystic fluid. The common bile duct is 0.4 cm and there are no intrahepatic ductal abnormalities. Liver shows no cysts, masses or dilated intrahepatic ducts. The portal vein shows normal flow. The ec hotexture of the liver is homogeneous. The pancreas is obscured by overlying bowel gas but no cyst, pseudocyst, or evidence of pancreatitis is noted. Right kidney measures 11.2 cm and no cyst, masses or hydronephrosis can be seen. The aorta and inferior vena cava show no vascular abnormalities. US/US abdomen limited [id number] Impression: 1. Enlarged gallbladder with sludge and gallstones in the fundus. 2. Pancreas obscured by overlying bowel gas.
== END | disposition home or self-care (01) ==
LOC: RAD 06:00
PROVIDERS: PCP Nurse Practitioner; Visit Provider Nurse Practitioner
DX: K80.10 Calculus of gallbladder with chronic cholecystitis without obstruction (principal)
CPT/HCPCS: 76705

== ENCOUNTER 2024-06-09 14:34 | Emergency (ER) | payer OTHER, MEDICARE, SELFPAY ==
[2024-06-09 14:50] VITALS: BP 114/68; PULSE 73; RESP 15; TEMP 36.4; O2SAT 93; BMI 18.2
[2024-06-09 16:14] LABS: Basophils % 0.3 %; Eosinophils % 0.2 %; Hematocrit 45.4 % (37-53); Lymphocytes % 8.7 %; Mean Corpuscular HGB Conc 34.8 g/dL (30-55); Mean Corpuscular Hemoglobin 34.7 pg (27-33); Mean Corpuscular Volume 99.8 fl (82-101); Mean Platelet Volume 12.8 fL (7.4-10.4); Monocytes # 0.9 10^3/uL (0.2-0.9); Monocytes % 8.1 %; Neutrophils # 9.54 10^3/uL (1.8-7.7); Neutrophils % 82.1 %; Nucleated Red Blood Cells % 0 %; Platelet Count 110 10^3/cmm (157-399); Red Blood Count 4.55 10^6/uL (3.85-5.65); Red Cell Distribution Width 13.6 % (12.1-15.1); White Blood Count 11.62 10^3/uL (3.29-11.43)
[2024-06-09 16:32] LABS: Alanine Aminotransferase 123 U/L (0-41); Albumin Level 3.4 g/dL (3.5-5.2); Alkaline Phosphatase 261 U/L (40-130); Anion Gap 16.5 (5-19); Aspartate Amino Transferase 51 U/L (0-40); Blood Urea Nitrogen 21 mg/dL (8-23); Calcium 8.9 mg/dL (8.5-10.5); Carbon Dioxide 27 mmol/L (22-29); Chloride 95 mmol/L (98-107); Globulin 3.2 g/dL (1.3-4.6); Glucose 110 mg/dL (65-115); Lipase 18 U/L (13-60); Osmolality Calculated 284 mOsm/kg (285-295); Potassium 3.5 mmol/L (3.5-5.1); Sodium 135 mmol/L (136-145); Total Bilirubin 1.2 mg/dL (0.15-1.2); Total Protein 6.6 g/dL (6.6-8.7)
[2024-06-09 16:43] LABS: Slide Review Slide Review Perform
--- NOTE | 2024-06-09 20:57 | CTR_ITS ---
PROCEDURE INFORMATION: Exam: CT Chest With Contrast; Diagnostic Exam date and time: 06/09/2024 9:13 PM Age: 83 years old Clinical indication: Vomiting; Other: Weight loss; Additional info: Esophageal dysphagia, weight loss, vomiting, smoker, constip TECHNIQUE: Imaging protocol: Diagnostic computed tomography of the chest with contrast. Radiation optimization: All CT scans at this facility use at least one of these dose optimization techniques: automated exposure control; mA and/or kV adjustment per patient size (includes targeted exams where dose is matched to clinical indication); or iterative reconstruction. Contrast material: OMNI 350; Contrast volume: 100 ml; Contrast route: INTRAVENOUS (IV); COMPARISON: CT angio chest PE protcl [id number] 04/19/2022 10:00 PM RADIATION DOSE METRICS: Total DLP (mGy-cm): 553 FINDINGS: Lungs: Bilateral apical predominant severe emphysematous changes of both lungs. Hyperinflated lungs. Atelectatic changes in both lower lobes. Calcified granuloma in the right upper lobe. Patchy fibrotic changes in the lingula. Pleural spaces: Unremarkable. No pneumothorax. No pleural effusion. Heart: Unremarkable. No cardiomegaly. No pericardial effusion. Coronary arteries: Moderate coronary calcifications. Lymph nodes: Calcified subcarinal lymph nodes. Calcified right hilar lymph nodes. Vasculature: Unremarkable. No aortic aneurysm. Bones/joints: Mild curvature of the thoracic spine convex to the right. Small multilevel anterior osteophytes of the thoracic spine. Soft tissues: Unremarkable. PROCEDURE INFORMATION: Exam: CT Abdomen And Pelvis With Contrast Exam date and time: 06/09/2024 9:13 PM Age: 83 years old Clinical indication: Vomiting; Other: Weight loss; Additional info: Esophageal dysphagia, weight loss, vomiting, smoker, constip TECHNIQUE: Imaging protocol: Computed tomography of the abdomen and pelvis with contrast. Radiation optimization: All CT scans at this facility use at least one of these dose optimization techniques: automated exposure control; mA and/or kV adjustment per patient size (includes targeted exams where dose is matched to clinical indication); or iterative reconstruction. Contrast material: OMNI 350; Contrast volume: 100 ml; Contrast route: INTRAVENOUS (IV); COMPARISON: CT angio chest PE protcl [id number] 04/19/2022 10:00 PM RADIATION DOSE METRICS: Total DLP (mGy-cm): 553 FINDINGS: Liver: Hypodense liver lesion in segment 5 of the liver measuring 7 mm, too small to characterize. Focal fatty infiltration adjacent to the falciform ligament. Gallbladder and biliary ducts: Cholelithiasis. No CT changes of acute cholecystitis. Pancreas: Normal. No ductal dilation. Spleen: Normal. No splenomegaly. Adrenal glands: Normal. No mass. Kidneys and ureters: Normal. No hydronephrosis. Stomach and bowel: Unremarkable. No obstruction. No mucosal thickening. Appendix: No evidence of appendicitis. Intraperitoneal space: Unremarkable. No free air. No significant fluid collection. Vasculature: Pelvic phleboliths. Stable hypodense lesion at the root of the celiac artery with punctate calcifications measuring 2 x 2 cm, unchanged when compared to 2021. Lymph nodes: Unremarkable. No enlarged lymph nodes. Urinary bladder: Unremarkable as visualized. Reproductive: Enlarged prostate gland. Bones/joints: Mild posterior osteophyte disc complex at L4-L5 and L5-S1 with mild bony canal stenosis. Mild curvature of the upper lumbar spine convex to the right. Demineralization of the visualized bones. Soft tissues: Unremarkable. CT/CT chest abdpel w/*[id number] IMPRESSION: No suspicious thoracic masses. IMPRESSION: 1. Enlarged prostate gland with its median lobe impinging on the neck of the bladder. 2. Stable hypodense lesion at the root of the superior mesenteric artery when compared 2021. 3. No other intra-abdominal masses.
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
[2024-06-09] MEDS: sodium chloride 0.9% 1,000 ML 999 ML IV (21:00)
[2024-06-09] MEDS: iohexol 350 mg/mL 500 mL Btl (per mL) IV (21:25)
[2024-06-09 21:37] VITALS: BP 129/77; PULSE 86; RESP 20; O2SAT 92
[2024-06-09 22:58] VITALS: BP 129/77; PULSE 76; RESP 24; O2SAT 91
[2024-06-10 00:22] VITALS: BP 124/78; PULSE 88; RESP 20; O2SAT 96
--- NOTE | 2024-06-10 07:31 | DCPLANNER ---
messaged gen surg for er f/u
== END 2024-06-10 00:23 | disposition home or self-care (01) ==
PROVIDERS: Emergency Provider Physician Assistant; PCP Nurse Practitioner
DX: R13.19 Other dysphagia (principal); F17.210 Nicotine dependence, cigarettes, uncomplicated; J44.9 Chronic obstructive pulmonary disease, unspecified
CPT/HCPCS: 36415; 71260; 74177; 80053; 83690; 85025; 99285; J7030

== ENCOUNTER 2025-06-02 09:44 | Outpatient (CLI) | payer OTHER, SELFPAY ==
--- NOTE | 2025-06-02 09:55 | US_ITS ---
WS: [id number] RIGHT UPPER QUADRANT ULTRASOUND HISTORY: LIVER SCREENING/SURVEILLANCE COMPARISON: 03/26/2024 Liver: 15.1 cm in length. Normal size liver and echogenicity. No bile duct dilatation or mass. Portal Vein: Normal hepatopetal flow with monophasic waveform. Gallbladder: Normally distended gallbladder with no stones or wall thickening. Nonshadowing foci are mobile within the gallbladder. This may be small stones surrounded by sludge or sludge balls. No pericholecystic fluid. CBD: 0.4 cm Pancreas: Obscured. Right kidney: 10.4 cm in length. Normal size and echogenicity. No hydronephrosis or mass. Aorta and IVC: Mild atherosclerosis aorta. No ascites. US/US abdomen limited [id number] IMPRESSION: 1. Normal distended gallbladder. No stones identified. There are nonshadowing foci which are mobile in the gallbladder. Probably representing small sludge ba lls. Potentially there could be a small stones within the sludge balls. There i s no pericholecystic fluid. 2. Normal common bile duct. 3. Negative liver.
== END 2025-06-02 09:45 | disposition home or self-care (01) ==
LOC: RAD 09:46
PROVIDERS: PCP Nurse Practitioner; Visit Provider Nurse Practitioner
DX: Z12.31 Encounter for screening mammogram for malignant neoplasm of breast (principal)
CPT/HCPCS: 76705